=== PATIENT | female | born 1955 | race African-American/Black ===

== ENCOUNTER 2016-09-28 06:07 | Inpatient (IN) | payer OTHER ==
[~2016-09-28] VITALS: Ht 154.9 cm; Wt 49.4 kg
[~2016-09-28 06:07] MED LIST: COLACE100 MG ORAL; NKM; TRAMADOL HCL50 MG ORAL
[2016-09-28] MEDS ORDERED: Albuterol ud Inhalation ONE (06:17)
[2016-09-28] MEDS ORDERED: Ipratropium 0.02% Inh Soln 2.5ml UD ONE (06:17)
[2016-09-28 06:20] VITALS: BP 161/86
[2016-09-28] MEDS ORDERED: Ipratropium 0.02% Inh Soln 2.5ml UD HHN ONE (06:30)
[2016-09-28] MEDS ORDERED: Solu-MEDROL 125mg Inj IVP ONE (06:30)
[2016-09-28] MEDS ORDERED: Albuterol ud Inhalation HHN ONE ×2 (06:30→10:30)
[2016-09-28 06:41] LABS: BASOPHILS % (AUTO) 0.7 % (0.0-2.0); EOSINOPHILS % (AUTO) 8.4 % (0.0-3.0); LYMPHOCYTES % (AUTO) 14.3 % (20.0-45.0); MEAN CORPUSCULAR HGB CONC 32.5 G/DL (32.0-36.0); MEAN CORPUSCULAR VOLUME 105 FL (80-99); MEAN PLATELET VOLUME 6.8 FL (6.5-10.1); NEUTROPHILS % (AUTO) 73.6 % (45.0-75.0); PLATELET COUNT 309 K/UL (150-450); RED BLOOD COUNT 4.32 M/UL (4.20-5.40); RED CELL DISTRIBUTION WIDTH 14.2 % (11.6-14.8); WHITE BLOOD COUNT 15.1 K/UL (4.8-10.8)
--- NOTE | 2016-09-28 06:41 | Emergency Room Report ---
History of Present Illness General Chief Complaint: Dyspnea/Respdistress Source: Patient, EMS Present Illness HPI Patient brought by EMS. Her complaint is dyspnea. She has asthma and COPD. She's been smoking and also using cocaine mixed with marijuana. She's been coughing. This is not the worst attack that she's ever had. She denies being on prednisone at this time. She is coughing up white phlegm. She also has some diarrhea. She's occasional been vomiting. There's no blood. She is a headache that is 10/10 at this time she calls a migraine. Is not radiating. She feels tired. Allergies: Coded Allergies: CODEINE (Unverified Allergy, Unknown, 09/28/16) Patient History Past Medical History: see triage record Social History: Reports: drug use, smoking Social History Narrative from home Last Menstrual Period: ukn Now: No Reviewed Nursing Documentation: PMH: Agreed, PSxH: Agreed Nursing Documentation-PMH Past Medical History: No History, Except For Hx Hypertension: Yes Hx Asthma: Yes Hx Diabetes: Yes Review of Systems All Other Systems: negative except mentioned in HPI Physical Exam Vital Signs Date Time Temp Pulse Resp B/P Pulse Ox O2 Delivery O2 Flow Rate FiO2 09/28/16 06:10 98.1 117 37 161/86 94 Room Air 09/28/16 06:31 2.0 Sp02 EP Interpretation: reviewed, abnormal - Oxygen saturation as low as interpreted by me General Appearance: well appearing, no apparent distress, GCS 15 Head: normocephalic, atraumatic Eyes: bilateral eye PERRL, bilateral eye Scleral Injection ENT: moist mucus membranes Neck: supple Respiratory: no respiratory distress, no accessory muscle use, wheezing, expiration, inspiration Cardiovascular #1: regular rate, rhythm Cardiovascular #2: 2+ radial (R) Gastrointestinal: normal inspection, normal bowel sounds, non tender, no mass, non-distended Musculoskeletal: back normal, gait/station normal, normal range of motion Neurologic: alert, oriented x3, grossly normal Psychiatric: mood/affect normal, anxious Skin: normal inspection, warm/dry Medical Decision Making Diagnostic Impression: Primary Impression: Bilateral pneumonia Qualified Codes: J18.9 - Pneumonia, unspecified organism Additional Impressions: Cocaine abuse COPD exacerbation Renal failure (ARF), acute on chronic Qualified Codes: N17.9 - Acute kidney failure, unspecified; N18.9 - Chronic kidney disease, unspecified ER Course Patient presents with dyspnea. Differential includes pneumonia, exacerbation of COPD, acute myocardial infarction, bronchitis amongst others. Emergent evaluation and treatment is undertaken. Initial orders were written by Dr. Main. EKG, chest x-ray, labs will be obtained. Also aggressive breathing treatments will be initiated. Also the patient will be given Solu-Medrol. She' s hypoxemic and probably will need admission to the hospital. Labs with inc WBC. + tox. CXR with bilateral infiltrates. Min elevated BNP. Renal failure. Fluids given. Antibiotics begun. Improved but hypoxemic. Needs another treatment. Improved. Still very ill. Admit telemetry Dr. Childs. Laboratory Tests Test 09/28/16 06:21 09/28/16 06:25 09/28/16 07:05 09/28/16 15:15 Magnesium Level 1.7 mg/dL (1.7-2.5) White Blood Count 15.1 K/UL (4.8-10.8) H Red Blood Count 4.32 M/UL (4.20-5.40) Hemoglobin 14.7 G/DL (12.0-16.0) Hematocrit 45.2 % (37.0-47.0) Mean Corpuscular Volume 105 FL (80-99) H Mean Corpuscular Hemoglobin 34.0 PG (27.0-31.0) H Mean Corpuscular Hemoglobin Concent 32.5 G/DL (32.0-36.0) Red Cell Distribution Width 14.2 % (11.6-14.8) Platelet Count 309 K/UL (150-450) Mean Platelet Volume 6.8 FL (6.5-10.1) Neutrophils (%) (Auto) 73.6 % (45.0-75.0) Lymphocytes (%) (Auto) 14.3 % (20.0-45.0) L Monocytes (%) (Auto) 3.0 % (1.0-10.0) Eosinophils (%) (Auto) 8.4 % (0.0-3.0) H Basophils (%) (Auto) 0.7 % (0.0-2.0) Prothrombin Time 10.0 SEC (9.30-11.50) Prothrombin Time INR 1.0 (0.9-1.1) PTT 24 SEC (23-33) Sodium Level 142 mEQ/L (135-145) Potassium Level 3.6 mEQ/L (3.4-4.9) Chloride Level 107 mEQ/L (98-107) Carbon Dioxide Level 19 mEQ/L (20-30) L Anion Gap 16 (5-15) H Blood Urea Nitrogen 35 mg/dL (7-23) H Creatinine 3.4 mg/dL (0.5-0.9) H Estimate Glomerular Filtration Rate 16.7 mL/min (>60) Glucose Level 107 mg/dL (74-106) H Calcium Level 9.9 mg/dL (8.6-10.2) Total Bilirubin 0.4 mg/dL (0.0-1.2) Aspartate Amino Transferase (AST) 13 U/L (5-40) Alanine Aminotransferase (ALT) 9 U/L (3-33) Alkaline Phosphatase 64 U/L (35-104) Total Creatine Kinase 95 U/L (26-140) 57 U/L (26-140) Creatine Kinase MB 3.4 ng/mL (< 3.8) Creatine Kinase MB Relative Index 3.5 Troponin I < 0.30 ng/mL (<=0.30) Pro-B-Type Natriuretic Peptide 364 pg/mL (0-125) H Total Protein 7.7 g/dL (6.6-8.7) Albumin 4.0 g/dL (3.5-5.2) Globulin 3.7 g/dL Albumin/Globulin Ratio 1.0 (1.0-2.7) Lactic Acid Level 1.50 mmol/L (0.66-2.22) Uric Acid 4.7 mg/dL (3.0-7.5) Test 09/28/16 16:00 Urine Color Pale yellow Urine Appearance Clear Urine pH 6 (4.5-8.0) Urine Specific [place] 1.010 (1.005-1.035) Urine Protein 3+ (NEGATIVE) H Urine Glucose (UA) 3+ (NEGATIVE) H Urine Ketones Negative (NEGATIVE) Urine Occult Blood 1+ (NEGATIVE) H Urine Nitrite Negative (NEGATIVE) Urine Bilirubin Negative (NEGATIVE) Urine Urobilinogen Normal MG/DL (0.0-1.0) Urine Leukocyte Esterase Negative (NEGATIVE) Urine RBC 0-2 /HPF (0 - 2) Urine WBC 0-2 /HPF (0 - 2) Urine Squamous Epithelial Cells Occasional /LPF Urine Bacteria None /HPF (NONE) Urine Eosinophils None seen Urine Random Sodium 55 mmol/L Urine Potassium Timed 28 mmol/L Urine Opiates Screen Positive (NEGATIVE) H Urine Barbiturates Screen Negative (NEGATIVE) Phencyclidine (PCP) Screen Negative (NEGATIVE) Urine Amphetamines Screen Negative (NEGATIVE) Urine Benzodiazepines Screen Negative (NEGATIVE) Urine Cocaine Screen Positive (NEGATIVE) H Urine Marijuana (THC) Screen Negative (NEGATIVE) EKG Diagnostic Results Rate: tachycardiac Rhythm: NSR ST Segments: no acute changes Rhythm Strip Diag. Results EP Interpretation: yes Rhythm: other - Rate 116, P pulmonale, occasional PVCs. Chest X-Ray Diagnostic Results Chest X-Ray Diagnostic Results : Chest X-Ray Ordered: Yes # of Views/Limited/Complete: 1 View Indication: Shortness of Breath EP Interpretation: Yes Interpretation: no effusion, no pneumothorax, other - bilateral infiltrates vs CHF, sl large cor Impression: Other Interpreting ER Provider: Electronically signed by Braeden Bennett MD Last Vital Signs Date Time Temp Pulse Resp B/P Pulse Ox O2 Delivery O2 Flow Rate FiO2 09/28/16 20:00 98.4 104 16 111/70 98 Room Air 09/28/16 19:43 2.0 28 Status: improved Disposition: ADMITTED INPATIENT Condition: Serious Braeden Bennett M.D. Sep 28, 2016 06:41
[2016-09-28] MEDS ORDERED: cefTRIAXone 1 GM in NS 55 ML IVPB ONE (06:45)
[2016-09-28 06:57] LABS: TROPONIN I < 0.30 ng/mL (<=0.30)
[2016-09-28 06:58] LABS: CALCIUM 9.9 mg/dL (8.6-10.2); CREATININE 3.4 mg/dL (0.5-0.9); GLOMERULAR FILTRATION RATE 16.7 mL/min (>60); POTASSIUM 3.6 mEQ/L (3.4-4.9); TOTAL PROTEIN 7.7 g/dL (6.6-8.7)
[2016-09-28 07:08] LABS: CKMB 3.4 ng/mL (< 3.8)
[2016-09-28 07:30] VITALS: BP 132/74
[2016-09-28] MEDS ORDERED: Metoclopramide 10mg/2ml Inj IVP ONE (07:30)
[2016-09-28] MEDS ORDERED: DiphenhydrAMINE 50mg/ml Inj IVP ONE (07:30)
[2016-09-28] MEDS ORDERED: Morphine Sulfate 2mg/ml Inj IVP ONE (07:30)
[2016-09-28] MEDS ORDERED: ALBUTEROL2.5 MG/3 M INH (09:35)
[2016-09-28] MEDS ORDERED: Acetaminophen 500mg (ES) tab ORAL PRN (09:45)
[2016-09-28 10:33] VITALS: BP 121/73
--- NOTE | 2016-09-28 11:11 | Diagnostic Imaging Report ---
Indication: Dyspnea Comparison: 04/03/09 A single view chest radiograph was obtained. Findings: The interstitium and pulmonary vascularity appear prominent within both lungs. The heart is enlarged. Bones are unremarkable. Impression: Interstitial edema
[2016-09-28 11:15] VITALS: BP 129/80
[2016-09-28] MEDS ORDERED: DuoNeb 0.5-3(2.5)mg/3ml neb HHN SCH (13:00)
--- NOTE | 2016-09-28 15:14 | Consultation ---
History of Present Illness General Date patient seen: Sep 28, 2016 Chief Complaint: Dyspnea/Respdistress Referring physician: dr Childs Reason for Consultation: dyspnea Present Illness HPI 61 year old female with hx of COPD, presented to ER with complaint of dyspnea. She's been smoking and also using cocaine mixed with marijuana. She's been coughing. She is coughing up white phlegm. She also has some diarrhea. She has a headache that is 10/10 at this time she calls a migraine. she is admitted to telemetry for acute exacerbation of COPd Allergies: Coded Allergies: CODEINE (Unverified Allergy, Unknown, 09/28/16) Medication History Scheduled Docusate Sodium* (Colace*), 100 MG ORAL THREE TIMES A DAY No Known Medications* (NKM - No Known Medications*), 0 ., (Reported) Scheduled PRN Albuterol Sulfate* (Albuterol Sulfate Hhn*), 3 ML INH NEEDED PRN for Shortness of Breath, (Reported) Tramadol Hcl* (Ultram*), 50 MG ORAL Q6H PRN for For Pain Patient History Healthcare decision maker Resuscitation status Full Code Advanced Directive on File Past Medical/Surgical History Past Medical/Surgical History: (1) COPD (chronic obstructive pulmonary disease) (2) Chronic kidney disease Review of Systems All Other Systems: negative except mentioned in HPI Physical Exam General Appearance: WD/WN Lines, tubes and drains: peripheral HEENT: normocephalic, atraumatic Neck: non-tender, normal alignment Respiratory/Chest: chest wall non-tender, lungs clear Cardiovascular/Chest: normal peripheral pulses, normal rate Abdomen: normal bowel sounds Genitourinary/Rectal: normal genital exam Skin Exam: normal pigmentation 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 Last 24 Hour Vital Signs Date Time Temp Pulse Resp B/P Pulse Ox O2 Delivery O2 Flow Rate FiO2 09/28/16 12:00 103 09/28/16 11:15 97.8 110 18 129/80 98 Nasal Cannula 2.0 09/28/16 10:33 99.2 111 21 121/73 95 Nasal Cannula 2.0 09/28/16 07:30 98.6 125 33 132/74 97 Simple Mask 7.0 09/28/16 06:45 120 22 95 Simple Mask 3.0 09/28/16 06:31 112 23 94 Nasal Cannula 2.0 09/28/16 06:20 117 37 Simple Mask 09/28/16 06:20 98.1 37 161/86 94 Room Air 09/28/16 06:10 98.1 117 37 161/86 94 Room Air Laboratory Tests Test 09/28/16 06:21 09/28/16 06:25 09/28/16 07:05 Magnesium Level 1.7 mg/dL (1.7-2.5) White Blood Count 15.1 K/UL (4.8-10.8) H Red Blood Count 4.32 M/UL (4.20-5.40) Hemoglobin 14.7 G/DL (12.0-16.0) Hematocrit 45.2 % (37.0-47.0) Mean Corpuscular Volume 105 FL (80-99) H Mean Corpuscular Hemoglobin 34.0 PG (27.0-31.0) H Mean Corpuscular Hemoglobin Concent 32.5 G/DL (32.0-36.0) Red Cell Distribution Width 14.2 % (11.6-14.8) Platelet Count 309 K/UL (150-450) Mean Platelet Volume 6.8 FL (6.5-10.1) Neutrophils (%) (Auto) 73.6 % (45.0-75.0) Lymphocytes (%) (Auto) 14.3 % (20.0-45.0) L Monocytes (%) (Auto) 3.0 % (1.0-10.0) Eosinophils (%) (Auto) 8.4 % (0.0-3.0) H Basophils (%) (Auto) 0.7 % (0.0-2.0) Prothrombin Time 10.0 SEC (9.30-11.50) Prothromb Time International Ratio 1.0 (0.9-1.1) Activated Partial Thromboplast Time 24 SEC (23-33) Sodium Level 142 mEQ/L (135-145) Potassium Level 3.6 mEQ/L (3.4-4.9) Chloride Level 107 mEQ/L (98-107) Carbon Dioxide Level 19 mEQ/L (20-30) L Anion Gap 16 (5-15) H Blood Urea Nitrogen 35 mg/dL (7-23) H Creatinine 3.4 mg/dL (0.5-0.9) H Estimat Glomerular Filtration Rate 16.7 mL/min (>60) Glucose Level 107 mg/dL (74-106) H Calcium Level 9.9 mg/dL (8.6-10.2) Total Bilirubin 0.4 mg/dL (0.0-1.2) Aspartate Amino Transf (AST/SGOT) 13 U/L (5-40) Alanine Aminotransferase (ALT/SGPT) 9 U/L (3-33) Alkaline Phosphatase 64 U/L (35-104) Total Creatine Kinase 95 U/L (26-140) Creatine Kinase MB 3.4 ng/mL (< 3.8) Creatine Kinase MB Relative Index 3.5 Troponin I < 0.30 ng/mL (<=0.30) Pro-B-Type Natriuretic Peptide 364 pg/mL (0-125) H Total Protein 7.7 g/dL (6.6-8.7) Albumin 4.0 g/dL (3.5-5.2) Globulin 3.7 g/dL Albumin/Globulin Ratio 1.0 (1.0-2.7) Lactic Acid Level 1.50 mmol/L (0.66-2.22) Height (Feet): 5 Height (Inches): 1.00 Weight (Pounds): 109 Medications Current Medications Medications (Trade) Dose Ordered Sig/Wilma Route PRN Reason Start Time Stop Time Status Last Admin Dose Admin Acetaminophen (Tylenol) 500 mg Q4H PRN ORAL MILD PAIN/T>100.5 09/28/16 09:45 10/28/16 09:44 Albuterol/ Ipratropium (DuoNeb 0.5-3(2.5)mg/3ml) 3 ml Q6HRT HHN 09/28/16 13:00 10/03/16 12:59 Ceftriaxone Sodium 2 gm/ Sodium Chloride 110 ml @ 220 mls/hr Q24HRS IVPB 09/29/16 08:00 10/06/16 07:59 Dextrose (Dextrose 50%) STAT PRN IV Hypoglycemia 09/28/16 09:15 10/28/16 09:14 Heparin Sodium (Porcine) (Heparin 5000 units/ml) 5,000 units EVERY 12 HOURS SUBQ 09/28/16 21:00 10/28/16 20:59 Levofloxacin (Levaquin 750mg/ D5W) 150 ml @ 100 mls/hr Q24HRS IVPB 09/29/16 05:00 10/06/16 04:59 Pantoprazole 40 mg 40 mg DAILY ORAL 09/28/16 11:00 10/28/16 10:59 09/28/16 12:06 Assessment/Plan Problem List: (1) COPD exacerbation ICD Codes: J44.1 - Chronic obstructive pulmonary disease with (acute) exacerbation SNOMED: 265552572, 561537751 (2) Chronic kidney disease ICD Codes: N18.9 - Chronic kidney disease, unspecified SNOMED: 296039588 (3) Cardiomegaly ICD Codes: I51.7 - Cardiomegaly SNOMED: 4772347 Assessment/Plan iv abx iv steroids check sputum /culture renal work up echo BALBINA JONES Sep 28, 2016 15:14
[2016-09-28 15:48] LABS: URIC ACID 4.7 mg/dL (3.0-7.5)
[2016-09-28 16:28] LABS: APPEARANCE,URINE CLEAR; KETONES,URINE NEGATIVE (NEGATIVE); LEUKOCYTE ESTERASE ,URINE NEGATIVE (NEGATIVE); NITRITE,URINE NEGATIVE (NEGATIVE); PH,URINE 6 (4.5-8.0); PROTEIN,URINE 3+ (NEGATIVE); UROBILINOGEN,URINE NORMAL MG/DL (0.0-1.0)
[2016-09-28 16:36] LABS: RBC,URINE 0-2 /HPF (0 - 2); SQUAMOUS EPITHELIAL CELL,UR OCCASIONAL /LPF (NONE/OCC); WBC,URINE 0-2 /HPF (0 - 2)
[2016-09-28] MEDS ORDERED: Solu-MEDROL 40mg Inj IVP SCH (18:00)
[2016-09-28] MEDS: Solu-MEDROL 40mg Inj IVP SCH (18:00)
[2016-09-28] MEDS: DuoNeb 0.5-3(2.5)mg/3ml neb HHN SCH (19:00)
[2016-09-28 20:00] VITALS: BP 111/70
[2016-09-28] MEDS ORDERED: Heparin 5000 units/ml inj SUBQ SCH (21:00)
[2016-09-28] MEDS: Heparin 5000 units/ml inj SUBQ SCH (21:08)
--- NOTE | 2016-09-28 22:38 | Consultation ---
Consult Note Consult Note [id number] CAROLANN MARCUS M.D. Sep 28, 2016 22:38
[2016-09-28] MEDS ORDERED: Ketorolac 30mg Inj IV PRN ×2 (22:45→23:00)
[2016-09-28] MEDS ORDERED: Ketorolac 30mg Inj IM PRN (23:30)
[2016-09-29] VITALS: BP 114/73
[2016-09-29] MEDS: DuoNeb 0.5-3(2.5)mg/3ml neb HHN SCH ×4 (01:00→19:21)
--- NOTE | 2016-09-29 03:15 | Consultation ---
DATE OF CONSULTATION: 09/28/2016 INFECTIOUS DISEASES CONSULTATION CONSULTING PHYSICIAN: Edilberto Coleman M.D. REQUESTING PHYSICIAN: Phyllis Childs M.D. REASON FOR CONSULTATION: Evaluation of the patient for pneumonia and antibiotic management. HISTORY OF PRESENT ILLNESS: The patient is a 61-year-old female with medical problems who came to the hospital due to the cough and serum production. Infectious Disease consultation has been requested for further evaluation of the patient and antibiotic management. PAST MEDICAL HISTORY: 1. Significant for history of cocaine and marijuana abuse. 2. Smoker. 3. History of COPD. 4. Hypertension. 5. Diabetes. MEDICATIONS: Rocephin, , and Solu-Medrol. ALLERGIES: Codeine. SOCIAL HISTORY: Significant for abusing cocaine and marijuana. Also, the patient has history of smoking tobacco. FAMILY HISTORY: Noncontributing. REVIEW OF SYSTEMS: A 10-point review was done and except what is mentioned above has been negative. PHYSICAL EXAMINATION: VITAL SIGNS: Temperature 97.8 degrees, blood pressure 129/80, pulse 86, and respiratory rate 18. HEENT: Mild pale conjunctivae. No icterus. NECK: No lymphadenopathy. CHEST: Mild wheezes. Coarse breathing sounds at bases of both lungs. HEART: S1 and S2. ABDOMEN: Soft. EXTREMITIES: No cyanosis at this time. NEUROLOGIC: Awake. LABORATORY AND DIAGNOSTIC DATA: WBC 15.1, hemoglobin 14, and platelets 209,000. UA unremarkable. BUN 34 and creatinine 3.4. ALT, AST, and alkaline phosphatase unremarkable. Chest x-ray interstitial edema. CT scan of the abdomen, bilateral nonobstructive nephrolithiasis. ASSESSMENT: The patient is a 61-year-old female with: 1. Pneumonia. 2. Leukocytosis. 3. Bronchitis. 4. Bilateral nonobstructing nephrolithiasis. PLAN: 1. We will continue the patient on Rocephin and Levaquin day #03/15. 2. Monitor CBC. 3. Monitor BMP. 4. Monitor cultures (blood and sputum). 5. Multiple chest x-rays. 6. Based on the patient's clinical course and labs, we will do further recommendations. Thank you Dr. Childs for allowing me to participate in the care of this patient. I will follow the patient with you during this hospitalization. Edilberto Coleman M.D. DR: KRISTEN JOB#: [id number] CC:
[2016-09-29 04:00] VITALS: BP 124/79
[2016-09-29] MEDS: Solu-MEDROL 40mg Inj IVP SCH ×4 (05:12→21:08)
--- NOTE | 2016-09-29 07:52 | Pulmonology Progress Note ---
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 and smoking cessation declined Nicotine patch case discussed and evaluated by supervising physician Subjective Allergies: Coded Allergies: CODEINE (Unverified Allergy, Unknown, 09/28/16) Subjective labs pending intermittent SOB no signs of respiratory distress pulse oximetry stable on RA denies chest pain Objective Last 24 Hour Vital Signs Date Time Temp Pulse Resp B/P Pulse Ox O2 Delivery O2 Flow Rate FiO2 09/29/16 06:37 Nasal Cannula 2.0 09/29/16 06:37 Nasal Cannula 2.0 09/29/16 06:37 73 20 Nasal Cannula 2.0 09/29/16 04:39 Nasal Cannula 2.0 09/29/16 04:00 97.5 94 18 124/79 99 Nasal Cannula 2.0 09/29/16 00:00 98.1 59 17 114/73 98 Room Air 09/28/16 20:00 98.4 104 16 111/70 98 Room Air 09/28/16 19:43 105 20 98 Nasal Cannula 2.0 28 09/28/16 19:41 105 20 98 Nasal Cannula 3.0 09/28/16 19:38 105 22 Nasal Cannula 09/28/16 12:00 103 09/28/16 11:15 97.8 110 18 129/80 98 Nasal Cannula 2.0 09/28/16 10:33 99.2 111 21 121/73 95 Nasal Cannula 2.0 Intake and Output 09/28/16 09/29/16 19:00 07:00 Intake Total 200 ml Balance 200 ml Intake IV Total 200 ml # Voids 5 General Appearance: no acute distress, other - A/A/O x 3 AA female HEENT: normocephalic, atraumatic, anicteric Respiratory/Chest: no respiratory distress, no accessory muscle use, decreased breath sounds - few occasional expiratory wheezes Cardiovascular: normal peripheral pulses, regular rhythm, no JVD, tachycardia - mild 100-108 Abdomen: normal bowel sounds, soft, non tender, non distended Genitourinary: normal external genitalia Extremities: no edema, pedal pulses normal Neurologic/Psychiatric: no motor/sensory deficits, alert, oriented x 3, responsive Musculoskeletal: normal muscle bulk Laboratory Tests 09/28/16 15:15: Uric Acid 4.7, Total Creatine Kinase 57 09/28/16 16:00: Urine Color Pale yellow, Urine Appearance Clear, Urine pH 6, Urine Specific [place] 1.010, Urine Protein 3+H, Urine Glucose (UA) 3+H, Urine Ketones Negative , Urine Occult Blood 1+H, Urine Nitrite Negative, Urine Bilirubin Negative, Urine Urobilinogen Normal, Urine Leukocyte Esterase Negative, Urine RBC 0-2, Urine WBC 0-2, Urine Squamous Epithelial Cells Occasional, Urine Bacteria None, Urine Eosinophils None seen, Urine Random Sodium 55, Urine Potassium Timed 28, Urine Opiates Screen PositiveH, Urine Barbiturates Screen Negative, Phencyclidine (PCP) Screen Negative, Urine Amphetamines Screen Negative, Urine Benzodiazepines Screen Negative, Urine Cocaine Screen PositiveH, Urine Marijuana (THC) Screen Negative 09/29/16 05:25: White Blood Count [Pending], Red Blood Count [Pending], Hemoglobin [Pending], Hematocrit [Pending], Mean Corpuscular Volume [Pending], Mean Corpuscular Hemoglobin [Pending], Mean Corpuscular Hemoglobin Concent [Pending], Red Cell Distribution Width [Pending], Platelet Count [Pending], Mean Platelet Volume [ Pending], Neutrophils (%) (Auto) [Pending], Lymphocytes (%) (Auto) [Pending], Monocytes (%) (Auto) [Pending], Eosinophils (%) (Auto) [Pending], Basophils (%) (Auto) [Pending] Current Medications Medications (Trade) Dose Ordered Sig/Wilma Route PRN Reason Start Time Stop Time Status Last Admin Dose Admin Acetaminophen (Tylenol) 500 mg Q4H PRN ORAL MILD PAIN/T>100.5 09/28/16 17:00 10/28/16 16:59 Albuterol/ Ipratropium (DuoNeb 0.5-3(2.5)mg/3ml) 3 ml Q6HRT HHN 09/28/16 19:00 10/03/16 18:59 Ceftriaxone Sodium 2 gm/ Sodium Chloride 110 ml @ 220 mls/hr Q24HRS IVPB 09/29/16 08:00 10/06/16 07:59 Dextrose (Dextrose 50%) STAT PRN IV Hypoglycemia 09/28/16 17:00 10/28/16 16:59 Heparin Sodium (Porcine) (Heparin 5000 units/ml) 5,000 units EVERY 12 HOURS SUBQ 09/28/16 21:00 10/28/16 20:59 09/28/16 21:08 Ketorolac Tromethamine (Toradol 30mg) 15 mg EVERY 12 HOURS PRN IM For Pain 09/28/16 23:30 10/03/16 23:29 09/28/16 23:56 Levofloxacin (Levaquin 750mg/ D5W) 150 ml @ 100 mls/hr Q24HRS IVPB 09/29/16 05:00 10/06/16 04:59 09/29/16 04:54 Methylprednisolone Sodium Succinate (Solu-MEDROL) 40 mg EVERY 6 HOURS IVP 09/28/16 18:00 10/28/16 17:59 09/29/16 05:12 Pantoprazole (Protonix) 40 mg DAILY ORAL 09/29/16 09:00 10/29/16 08:59 Wilson SolisPriscila vela NP Sep 29, 2016 07:52
[2016-09-29 08:00] VITALS: BP 137/81
[2016-09-29] MEDS ORDERED: cefTRIAXone 2 GM in NS 110 ML IVPB SCH (08:00)
[2016-09-29] MEDS: cefTRIAXone 2 GM in NS 110 ML IVPB SCH (08:46)
[2016-09-29] MEDS: Heparin 5000 units/ml inj SUBQ SCH ×2 (08:47→21:08)
[2016-09-29] MEDS: DiphenhydrAMINE 50mg/ml Inj IVP PRN ×3 (08:55→21:18)
[2016-09-29] MEDS ORDERED: Tubing IV Secondary IV ONE ×3 (10:27→17:02)
[2016-09-29] MEDS ORDERED: NS 275ml ONE (10:27)
--- NOTE | 2016-09-29 10:32 | History & Physical ---
History and Physical History & Physicial patient is seen and examind. HP in progress Phyllis Childs MD Sep 29, 2016 10:32
[2016-09-29] MEDS ORDERED: D5 1/2NS 1000ml IV ONE (11:05)
--- NOTE | 2016-09-29 11:34 | Infectious Diseases Prog Note ---
Assessment/Plan Assessment/Plan A: ASSESSMENT: The patient is a 61-year-old female with: Pneumonia Leukocytosis Bronchitis Bilateral nonobstructing nephrolithiasis history of cocaine and marijuana abuse Smoker History of COPD Hypertension Diabetes PLAN: cont pt on Rocephin and Levaquin day # 2 /5 Monitor CBC Monitor BMP Monitor cultures (blood and sputum). chest x-rays. Subjective Constitutional: Denies: anorexia, chills, drenching sweats, fatigue, fever, no symptoms, other Allergies: Coded Allergies: CODEINE (Unverified Allergy, Unknown, 09/28/16) Objective Vital Signs Last 24 Hour Vital Signs Date Time Temp Pulse Resp B/P Pulse Ox O2 Delivery O2 Flow Rate FiO2 09/29/16 08:00 97.9 104 18 137/81 98 Room Air 09/29/16 06:37 Nasal Cannula 2.0 09/29/16 06:37 Nasal Cannula 2.0 09/29/16 06:37 73 20 Nasal Cannula 2.0 09/29/16 04:39 Nasal Cannula 2.0 09/29/16 04:00 97.5 94 18 124/79 99 Nasal Cannula 2.0 09/29/16 00:00 98.1 59 17 114/73 98 Room Air 09/28/16 20:00 98.4 104 16 111/70 98 Room Air 09/28/16 19:43 105 20 98 Nasal Cannula 2.0 28 09/28/16 19:41 105 20 98 Nasal Cannula 3.0 09/28/16 19:38 105 22 Nasal Cannula 09/28/16 12:00 103 Height (Feet): 5 Height (Inches): 1.00 Weight (Pounds): 109 HEENT: anicteric Respiratory/Chest: normal breath sounds Cardiovascular: normal rate Microbiology Date/Time Source Procedure Growth Status 09/28/16 07:15 Blood Blood Culture - Preliminary NO GROWTH AFTER 24 HOURS Resulted 09/28/16 07:00 Blood Blood Culture - Preliminary NO GROWTH AFTER 24 HOURS Resulted Laboratory Tests Test 09/28/16 15:15 09/28/16 16:00 09/29/16 05:25 Uric Acid 4.7 mg/dL (3.0-7.5) Total Creatine Kinase 57 U/L (26-140) Urine Color Pale yellow Urine Appearance Clear Urine pH 6 (4.5-8.0) Urine Specific [place] 1.010 (1.005-1.035) Urine Protein 3+ (NEGATIVE) H Urine Glucose (UA) 3+ (NEGATIVE) H Urine Ketones Negative (NEGATIVE) Urine Occult Blood 1+ (NEGATIVE) H Urine Nitrite Negative (NEGATIVE) Urine Bilirubin Negative (NEGATIVE) Urine Urobilinogen Normal MG/DL (0.0-1.0) Urine Leukocyte Esterase Negative (NEGATIVE) Urine RBC 0-2 /HPF (0 - 2) Urine WBC 0-2 /HPF (0 - 2) Urine Squamous Epithelial Cells Occasional /LPF Urine Bacteria None /HPF (NONE) Urine Eosinophils None seen Urine Random Sodium 55 mmol/L Urine Potassium Timed 28 mmol/L Urine Opiates Screen Positive (NEGATIVE) H Urine Barbiturates Screen Negative (NEGATIVE) Phencyclidine (PCP) Screen Negative (NEGATIVE) Urine Amphetamines Screen Negative (NEGATIVE) Urine Benzodiazepines Screen Negative (NEGATIVE) Urine Cocaine Screen Positive (NEGATIVE) H Urine Marijuana (THC) Screen Negative (NEGATIVE) White Blood Count Pending Red Blood Count Pending Hemoglobin Pending Hematocrit Pending Mean Corpuscular Volume Pending Mean Corpuscular Hemoglobin Pending Mean Corpuscular Hemoglobin Concent Pending Red Cell Distribution Width Pending Platelet Count Pending Mean Platelet Volume Pending Neutrophils (%) (Auto) Pending Lymphocytes (%) (Auto) Pending Monocytes (%) (Auto) Pending Eosinophils (%) (Auto) Pending Basophils (%) (Auto) Pending Current Medications Medications (Trade) Dose Ordered Sig/Wilma Route PRN Reason Start Time Stop Time Status Last Admin Dose Admin Acetaminophen (Tylenol) 500 mg Q4H PRN ORAL MILD PAIN/T>100.5 09/28/16 17:00 10/28/16 16:59 Albuterol/ Ipratropium (DuoNeb 0.5-3(2.5)mg/3ml) 3 ml Q6HRT HHN 09/28/16 19:00 10/03/16 18:59 Ceftriaxone Sodium 2 gm/ Sodium Chloride 110 ml @ 220 mls/hr Q24HRS IVPB 09/29/16 08:00 10/06/16 07:59 09/29/16 08:46 Dextrose (Dextrose 50%) STAT PRN IV Hypoglycemia 09/28/16 17:00 10/28/16 16:59 Diphenhydramine HCl (Benadryl) 25 mg Q6H PRN IVP Itching 09/29/16 08:30 10/29/16 08:29 09/29/16 08:55 Heparin Sodium (Porcine) (Heparin 5000 units/ml) 5,000 units EVERY 12 HOURS SUBQ 09/28/16 21:00 10/28/16 20:59 09/29/16 08:47 Levofloxacin (Levaquin 750mg/ D5W) 150 ml @ 100 mls/hr Q24HRS IVPB 09/29/16 05:00 10/06/16 04:59 09/29/16 04:54 Methylprednisolone Sodium Succinate (Solu-MEDROL) 40 mg Q8HR IVP 09/29/16 14:00 10/29/16 13:59 Pantoprazole (Protonix) 40 mg DAILY ORAL 09/29/16 09:00 10/29/16 08:59 09/29/16 08:47 CAROLANN MARCUS M.D. Sep 29, 2016 11:34
[2016-09-29 12:00] VITALS: BP 132/77
[2016-09-29 12:45] LABS: MEAN CORPUSCULAR HEMOGLOBIN 33.6 PG (27.0-31.0); MEAN CORPUSCULAR HGB CONC 32.5 G/DL (32.0-36.0); MEAN CORPUSCULAR VOLUME 104 FL (80-99); MEAN PLATELET VOLUME 6.6 FL (6.5-10.1); PLATELET COUNT 266 K/UL (150-450); RED BLOOD COUNT 3.77 M/UL (4.20-5.40); RED CELL DISTRIBUTION WIDTH 13.8 % (11.6-14.8); WHITE BLOOD COUNT 15.5 K/UL (4.8-10.8)
[2016-09-29 13:11] LABS: ALANINE AMINOTRANSFERASE 8 U/L (3-33); ALBUMIN/GLOBULIN RATIO 0.9 (1.0-2.7); ANION GAP 12 (5-15); ASPARTATE AMINO TRANSFERASE 8 U/L (5-40); CALCIUM 9.6 mg/dL (8.6-10.2); CARBON DIOXIDE 19 mEQ/L (20-30); CHLORIDE 109 mEQ/L (98-107); CREATININE 2.7 mg/dL (0.5-0.9); GLOMERULAR FILTRATION RATE 21.8 mL/min (>60); HEMOLYSIS 4; POTASSIUM 5.5 mEQ/L (3.4-4.9); SODIUM 140 mEQ/L (135-145); TOTAL PROTEIN 7.1 g/dL (6.6-8.7)
--- NOTE | 2016-09-29 13:47 | General Progress Note ---
Assessment/Plan Status: stable Assessment/Plan 1- Acute COPD exacerbation 2- HyperKalemia 3- Renal failure- Age indeterminant 4- Substance abuse 5- GI-DVT prophylaxia Plan: Pulmonary Nephro ID services are consulted. I will provide Kayoxalate. Monitor K Subjective ROS Limited/Unobtainable: No Constitutional: Reports: malaise Cardiovascular: Reports: no symptoms Respiratory: Reports: shortness of breath Allergies: Coded Allergies: CODEINE (Unverified Allergy, Unknown, 09/28/16) Objective Last 24 Hour Vital Signs Date Time Temp Pulse Resp B/P Pulse Ox O2 Delivery O2 Flow Rate FiO2 09/29/16 12:30 Room Air 09/29/16 12:30 Room Air 09/29/16 12:00 98.0 88 18 132/77 Room Air 09/29/16 08:00 97.9 104 18 137/81 98 Room Air 09/29/16 06:37 Nasal Cannula 2.0 09/29/16 06:37 Nasal Cannula 2.0 09/29/16 06:37 73 20 Nasal Cannula 2.0 09/29/16 04:39 Nasal Cannula 2.0 09/29/16 04:00 97.5 94 18 124/79 99 Nasal Cannula 2.0 09/29/16 00:00 98.1 59 17 114/73 98 Room Air 09/28/16 20:00 98.4 104 16 111/70 98 Room Air 09/28/16 19:43 105 20 98 Nasal Cannula 2.0 28 09/28/16 19:41 105 20 98 Nasal Cannula 3.0 09/28/16 19:38 105 22 Nasal Cannula Intake and Output 09/28/16 09/29/16 19:00 07:00 Intake Total 200 ml Balance 200 ml Intake IV Total 200 ml # Voids 5 Laboratory Tests 09/28/16 15:15: Uric Acid 4.7, Total Creatine Kinase 57 09/28/16 16:00: Urine Color Pale yellow, Urine Appearance Clear, Urine pH 6, Urine Specific Custer 1.010, Urine Protein 3+H, Urine Glucose (UA) 3+H, Urine Ketones Negative , Urine Occult Blood 1+H, Urine Nitrite Negative, Urine Bilirubin Negative, Urine Urobilinogen Normal, Urine Leukocyte Esterase Negative, Urine RBC 0-2, Urine WBC 0-2, Urine Squamous Epithelial Cells Occasional, Urine Bacteria None, Urine Eosinophils None seen, Urine Random Sodium 55, Urine Potassium Timed 28, Urine Opiates Screen PositiveH, Urine Barbiturates Screen Negative, Phencyclidine (PCP) Screen Negative, Urine Amphetamines Screen Negative, Urine Benzodiazepines Screen Negative, Urine Cocaine Screen PositiveH, Urine Marijuana (THC) Screen Negative 09/29/16 12:00: White Blood Count 15.5H, Red Blood Count 3.77L, Hemoglobin 12.7, Hematocrit 39.0 , Mean Corpuscular Volume 104H, Mean Corpuscular Hemoglobin 33.6H, Mean Corpuscular Hemoglobin Concent 32.5, Red Cell Distribution Width 13.8, Platelet Count 266, Mean Platelet Volume 6.6, Neutrophils (%) (Auto) , Lymphocytes (%) ( Auto) , Monocytes (%) (Auto) , Eosinophils (%) (Auto) , Basophils (%) (Auto) , Neutrophils % (Manual) [Pending], Lymphocytes % (Manual) [Pending], Platelet Estimate [Pending], Platelet Morphology [Pending], Sodium Level 140, Potassium Level 5.5#H, Chloride Level 109H, Carbon Dioxide Level 19L, Anion Gap 12, Blood Urea Nitrogen 35H, Creatinine 2.7H, Estimat Glomerular Filtration Rate 21.8, Glucose Level 152H, Calcium Level 9.6, Total Bilirubin < 0.2, Aspartate Amino Transf (AST/SGOT) 8, Alanine Aminotransferase (ALT/SGPT) 8, Alkaline Phosphatase 52, Total Protein 7.1, Albumin 3.5, Globulin 3.6, Albumin/Globulin Ratio 0.9L Height (Feet): 5 Height (Inches): 1.00 Weight (Pounds): 109 General Appearance: no apparent distress EENT: PERRL/EOMI Neck: supple Cardiovascular: normal rate Respiratory/Chest: rhonchi - bilaterally Abdomen: soft Neurologic: ab initio etl developer II-XII grossly normal Phyllis Childs MD Sep 29, 2016 13:47
[2016-09-29] MEDS: Acetaminophen 500mg (ES) tab ORAL PRN (13:51)
[2016-09-29 13:54] LABS: BAND NEUTROPHILS % (MANUAL) 0 % (0-8); BASOPHILS % (MANUAL) 0 % (0-2); EOSINOPHILS % (MANUAL) 1 % (0-3); LYMPHOCYTES % (MANUAL) 11 % (20-45); NEUTROPHILS % (MANUAL) 87 % (45-75); PLATELET ESTIMATE ADEQUATE; PLATELET MORPHOLOGY NORMAL; TOTAL CELLS COUNTED 100
[2016-09-29 13:55] LABS: MACROCYTES 1+
[2016-09-29] MEDS ORDERED: Sodium Polystyrene Sulfonate 15gm Powder ORAL ONE (14:00)
--- NOTE | 2016-09-29 14:15 | History and Physical Report ---
DATE OF ADMISSION: 09/28/2016 SOURCE OF INFORMATION: Patient and EMR. HISTORY OF PRESENT ILLNESS: The patient is a 61-year-old female, active smoker, with prior history of chronic obstructive pulmonary disease, who presented with worsening of shortness of breath for the last couple of days. The patient complains of episodes of cough, but denies any fever or chills. The patient reported that the shortness of breath get worse by walking around. REVIEW OF SYSTEMS: All 9 elements of review of systems reviewed with the patient. Pertinent positives and negatives as follows. The patient denied chest pain. The patient denied nausea, vomiting, diarrhea, constipation. PAST MEDICAL HISTORY: Significant for polysubstance abuse, active tobacco smoking, COPD, hypertension, and diabetes. OUTPATIENT MEDICATIONS: Including albuterol, Colace, and tramadol. ALLERGIES: To codeine. SOCIAL HISTORY: Positive for history of cocaine abuse, marijuana abuse. Active tobacco smoking at least half a pack per day for more than 20 years. PHYSICAL EXAMINATION: VITAL SIGNS: Blood pressure is 130/80, pulse oximetry 98% on 2 liters of oxygen, and temperature 97.5 degrees. HEAD AND NECK: Atraumatic and normocephalic. CHEST: Diffuse bronchial breathing sounds. HEART: S1 and S2. Regular rate and rhythm. MUSCULOSKELETAL: Atrophied musculature, but no gross lateralized motor deficit. NEUROLOGIC: The patient is awake, alert, and oriented x3. PSYCHIATRIC: Mood and affect are depressed and anxious. LABORATORY DATA: Labs dated 09/28/2016 showed WBC 15.1, hemoglobin 14.7, and platelets 309,000. Sodium 142, potassium 3.6, BUN 35, and creatinine 3.4. BNP is 367. Urine drug screen is positive for cocaine and opiates. IMAGING: Chest x-ray dated 09/28/2016 shows interstitial edema, otherwise unremarkable. ASSESSMENT: 1. Chronic obstructive pulmonary disease exacerbation. 2. Substance abuse. 3. Renal failure (age indeterminate). 4. Hyperkalemia. 5. Abnormal BNP. 6. Gastrointestinal and deep vein thrombosis prophylaxis. PLAN OF CARE: Pulmonary, Dr. Dyson and Infectious Disease, Dr. Coleman were consulted. I will check the 2D echocardiogram. Continue with the current antibiotic regimen including ceftriaxone and levofloxacin. Comments: The time of this dictation does not reflect the actual time of encounter, that had occurred on 09/28/2016 at 11:50 a.kelsie Phyllis Childs M.D. DR: JOSR JOB#: [id number] CC:
[2016-09-29 15:57] VITALS: BP 134/92
--- NOTE | 2016-09-29 15:59 | Consultation ---
Consult Note Assessment/Plan Renal consult dictated # [id number] SAAVNNAH MITCHELL Sep 29, 2016 15:59
[2016-09-29] MEDS: Morphine Sulfate 2mg/ml Inj IVP PRN (21:09)
--- NOTE | 2016-09-29 21:45 | Consultation ---
DATE OF CONSULTATION: 09/29/2016 NEPHROLOGY CONSULTATION CONSULTING PHYSICIAN: Nacho Roman M.D. REFERRING PHYSICIAN: Phyllis Childs M.D. REASON FOR CONSULTATION: Renal failure. HISTORY OF PRESENT ILLNESS: This is a 61-year-old female with a history of smoking. She usually smokes 1 pack every other day and has been smoking for many years. She was admitted with chronic obstructive pulmonary disease exacerbation. Dr. Reeves was asked to see the patient for renal failure and I am covering for him today. The patient's BUN and creatinine was 35 and 2.7 as of today with a potassium of 5.5. The patient says that she was told before that she has a history of chronic kidney disease. PAST MEDICAL HISTORY: The patient has a history of hypertension, diabetes, and chronic obstructive pulmonary disease. ALLERGIES: Codeine causes itching. SOCIAL HISTORY: As mentioned, the patient has a history of smoking. She lives at home with her cousin. No history of alcohol abuse. REVIEW OF SYSTEMS: Noncontributory. PHYSICAL EXAMINATION: GENERAL: The patient is a 61-year-old female, in no acute distress. VITAL SIGNS: Blood pressure 132/77, pulse 88, temperature 98, and respiratory rate is 18. HEENT: Welch conjunctivae. Anicteric sclerae. NECK: Supple. LUNGS: Prior to her expiratory rhonchi. HEART: S1 and S2 without murmurs or rubs. ABDOMEN: Soft and nontender. EXTREMITIES: No cyanosis or edema. LABORATORY FINDINGS: The chemistry panel shows a serum sodium 140, potassium 5.5, chloride 109, CO2 19, BUN 35, and creatinine 2.7. Yesterday, the BUN was 35 and creatinine 2.4. CBC shows a WBC of 15.5, hematocrit 39, hemoglobin 12.7, and platelets 266,000. ASSESSMENT: This is a 61-year-old female, who was admitted with chronic obstructive pulmonary disease exacerbation. She has acute renal failure. It may have been caused by prerenal azotemia and that has improved. However, the patient tells me that she has also chronic kidney disease. Urine has 3+ protein, which goes along with the diagnosis. Her risk factors are obviously diabetes and hypertension. PLAN: I would hydrate the patient cautiously. Chemistry panel will be followed closely. I will order vitamin D and PTH level as well to make sure the patient does have a secondary hyperparathyroidism, which would put her at risk of renal osteodystrophy. Thank you very much Dr. Childs for this consultation. Nacho Roman M.D. DR: REID JOB#: [id number] CC: LORE
[2016-09-30] MEDS: DuoNeb 0.5-3(2.5)mg/3ml neb HHN SCH ×4 (01:18→19:00)
[2016-09-30 04:00] VITALS: BP 122/77
[2016-09-30] MEDS: Solu-MEDROL 40mg Inj IVP SCH ×2 (05:38→21:33)
[2016-09-30] MEDS: DiphenhydrAMINE 50mg/ml Inj IVP PRN ×2 (05:38→21:33)
[2016-09-30] MEDS: cefTRIAXone 2 GM in NS 110 ML IVPB SCH (08:02)
[2016-09-30] MEDS: Morphine Sulfate 2mg/ml Inj IVP PRN ×2 (08:02→16:12)
[2016-09-30 08:16] VITALS: BP 132/81
--- NOTE | 2016-09-30 09:12 | Pulmonology Progress Note ---
Assessment/Plan Assessment/Plan ASSESSMENT possible sepsis ( leukocytosis, tachycardia) acute COPD exacerbation acute on chronic renal failure smoker cocaine abuse PLAN OF CARE MS floor Supplemental O2 , keep sat above 92% HHN prn IV Steroids and taper Empiric abx Sputum cx if able Antitussive prn fup with CXR initial CXR with interstitial edema Echo with pEF 60-65% and RVSP of 25 DVT, GI prophayxlis Bowel regimen check renal US gentle IVF monitor renal parameters, lytes, avoid nephrotoxic creat trending down nephro follows urine tox screen + cocaine AMS possible due to cocaine +/- UTI - improving , trauma counsellor on abstinence from street drug and smoking cessation declined Nicotine patch case discussed and evaluated by supervising physician Subjective Allergies: Coded Allergies: CODEINE (Unverified Allergy, Unknown, 09/28/16) Subjective labs pending intermittent SOB no signs of respiratory distress pulse oximetry stable on RA denies chest pain Objective Last 24 Hour Vital Signs Date Time Temp Pulse Resp B/P Pulse Ox O2 Delivery O2 Flow Rate FiO2 09/30/16 08:16 97.8 99 20 132/81 99 Room Air 09/30/16 07:29 86 18 97 Room Air 09/30/16 07:29 Room Air 09/30/16 07:29 86 18 Room Air 09/30/16 04:00 97.7 62 20 122/77 100 Room Air 2.0 09/30/16 01:30 79 20 99 Room Air 09/30/16 01:18 77 20 96 Room Air 09/29/16 19:39 77 20 99 Room Air 09/29/16 19:21 75 20 Room Air 09/29/16 19:21 75 20 96 Room Air 09/29/16 15:57 98.0 69 15 134/92 99 Nasal Cannula 09/29/16 12:30 Room Air 09/29/16 12:30 Room Air 09/29/16 12:00 98.0 88 18 132/77 Room Air Intake and Output 09/29/16 09/30/16 19:00 07:00 Intake Total 930 ml 600 ml Balance 930 ml 600 ml Intake Oral 880 ml IV Total 50 ml 600 ml # Voids 3 4 Objective General Appearance: no acute distress, other - A/A/O x 3 AA female HEENT: normocephalic, atraumatic, anicteric Respiratory/Chest: no respiratory distress, no accessory muscle use, decreased breath sounds - few occasional expiratory wheezes Cardiovascular: normal peripheral pulses, regular rate and rhythm, no JVD, Abdomen: normal bowel sounds, soft, non tender, non distended Genitourinary: normal external genitalia Extremities: no edema, pedal pulses normal Neurologic/Psychiatric: no motor/sensory deficits, alert, oriented x 3, responsive Musculoskeletal: normal muscle bulk Microbiology Date/Time Source Procedure Growth Status 09/28/16 07:15 Blood Blood Culture - Preliminary NO GROWTH AFTER 24 HOURS Resulted 09/28/16 07:00 Blood Blood Culture - Preliminary NO GROWTH AFTER 24 HOURS Resulted Laboratory Tests 09/29/16 12:00: White Blood Count 15.5H, Red Blood Count 3.77L, Hemoglobin 12.7, Hematocrit 39.0 , Mean Corpuscular Volume 104H, Mean Corpuscular Hemoglobin 33.6H, Mean Corpuscular Hemoglobin Concent 32.5, Red Cell Distribution Width 13.8, Platelet Count 266, Mean Platelet Volume 6.6, Neutrophils (%) (Auto) , Lymphocytes (%) ( Auto) , Monocytes (%) (Auto) , Eosinophils (%) (Auto) , Basophils (%) (Auto) , Differential Total Cells Counted 100, Neutrophils % (Manual) 87H, Lymphocytes % (Manual) 11L, Monocytes % (Manual) 1, Eosinophils % (Manual) 1, Basophils % ( Manual) 0, Band Neutrophils 0, Platelet Estimate Adequate, Platelet Morphology Normal, Macrocytosis 1+, Sodium Level 140, Potassium Level 5.5#H, Chloride Level 109H, Carbon Dioxide Level 19L, Anion Gap 12, Blood Urea Nitrogen 35H, Creatinine 2.7H, Estimat Glomerular Filtration Rate 21.8, Glucose Level 152H, Calcium Level 9.6, Total Bilirubin < 0.2, Aspartate Amino Transf (AST/SGOT) 8, Alanine Aminotransferase (ALT/SGPT) 8, Alkaline Phosphatase 52, Total Protein 7.1, Albumin 3.5, Globulin 3.6, Albumin/Globulin Ratio 0.9L 09/29/16 18:40: Potassium Level 5.0H Current Medications Medications (Trade) Dose Ordered Sig/Wilma Route PRN Reason Start Time Stop Time Status Last Admin Dose Admin Acetaminophen (Tylenol) 500 mg Q4H PRN ORAL MILD PAIN/T>100.5 09/28/16 17:00 10/28/16 16:59 09/29/16 13:51 Albuterol/ Ipratropium (DuoNeb 0.5-3(2.5)mg/3ml) 3 ml Q6HRT HHN 09/28/16 19:00 10/03/16 18:59 09/30/16 01:18 Ceftriaxone Sodium/Sodium Chloride (Rocephin/Sodium Chloride) 110 ml @ 220 mls/hr Q24HRS IVPB 09/29/16 08:00 10/06/16 07:59 09/30/16 08:02 Dextrose (Dextrose 50%) STAT PRN IV Hypoglycemia 09/28/16 17:00 10/28/16 16:59 Diphenhydramine HCl (Benadryl) 25 mg Q6H PRN IVP Itching 09/29/16 08:30 10/29/16 08:29 09/30/16 05:38 Heparin Sodium (Porcine) (Heparin 5000 units/ml) 5,000 units EVERY 12 HOURS SUBQ 09/28/16 21:00 10/28/16 20:59 09/29/16 21:08 Levofloxacin (Levaquin 750mg/ D5W) 150 ml @ 100 mls/hr Q48H IVPB 10/01/16 05:00 10/08/16 04:59 Methylprednisolone Sodium Succinate 40 mg 40 mg Q8HR IVP 09/29/16 14:00 10/29/16 13:59 09/30/16 05:38 Morphine Sulfate (Morphine Sulfate) 1 mg Q8H PRN IVP Pain 4 - 10 09/29/16 19:00 10/06/16 18:59 09/30/16 08:02 Pantoprazole (Protonix) 40 mg DAILY ORAL 09/29/16 09:00 10/29/16 08:59 09/29/16 08:47 Sodium Chloride 1,000 ml @ 50 mls/hr Q20H IV 09/29/16 16:30 10/29/16 16:29 09/29/16 17:14 Priscila Rachel NP (Vanchtein) Sep 30, 2016 09:12
[2016-09-30] MEDS ORDERED: Guaifenesin/DM 10ml syrup ORAL PRN (10:15)
[2016-09-30 10:17] LABS: ALANINE AMINOTRANSFERASE 8 U/L (3-33); ANION GAP 13 (5-15); ASPARTATE AMINO TRANSFERASE 6 U/L (5-40); CALCIUM 9.4 mg/dL (8.6-10.2); CARBON DIOXIDE 20 mEQ/L (20-30); CHLORIDE 108 mEQ/L (98-107); CREATININE 2.4 mg/dL (0.5-0.9); HEMOLYSIS 2; POTASSIUM 4.5 mEQ/L (3.4-4.9); SODIUM 141 mEQ/L (135-145); TOTAL PROTEIN 6.5 g/dL (6.6-8.7)
[2016-09-30] MEDS: Heparin 5000 units/ml inj SUBQ SCH ×2 (10:28→21:35)
--- NOTE | 2016-09-30 10:56 | Infectious Diseases Prog Note ---
Assessment/Plan Assessment/Plan A; Pneumonia Bronchitis COPD Acute renal failure DM HPN Cocaine abuse P: ont pt on Rocephin and Levaquin day # 3 / Subjective ROS Limited/Unobtainable: No Constitutional: Reports: no symptoms HEENT: Reports: other - sore throat Respiratory: Reports: productive cough Cardiovascular: Reports: no symptoms Gastrointestinal/Abdominal: Reports: no symptoms Genitourinary: Reports: no symptoms Allergies: Coded Allergies: CODEINE (Unverified Allergy, Unknown, 09/28/16) Objective Vital Signs Last 24 Hour Vital Signs Date Time Temp Pulse Resp B/P Pulse Ox O2 Delivery O2 Flow Rate FiO2 09/30/16 08:16 97.8 99 20 132/81 99 Room Air 09/30/16 07:29 86 18 97 Room Air 09/30/16 07:29 Room Air 09/30/16 07:29 86 18 Room Air 09/30/16 04:00 97.7 62 20 122/77 100 Room Air 2.0 09/30/16 01:30 79 20 99 Room Air 09/30/16 01:18 77 20 96 Room Air 09/29/16 19:39 77 20 99 Room Air 09/29/16 19:21 75 20 Room Air 09/29/16 19:21 75 20 96 Room Air 09/29/16 15:57 98.0 69 15 134/92 99 Nasal Cannula 09/29/16 12:30 Room Air 09/29/16 12:30 Room Air 09/29/16 12:00 98.0 88 18 132/77 Room Air Height (Feet): 5 Height (Inches): 1.00 Weight (Pounds): 109 General Appearance: no acute distress HEENT: mucous membranes moist Respiratory/Chest: rhonchi - bilaterally Cardiovascular: normal rate Abdomen: soft, non tender Extremities: no edema Neurologic/Psychiatric: alert, oriented x 3, responsive Microbiology Date/Time Source Procedure Growth Status 09/28/16 07:15 Blood Blood Culture - Preliminary NO GROWTH AFTER 24 HOURS Resulted 09/28/16 07:00 Blood Blood Culture - Preliminary NO GROWTH AFTER 24 HOURS Resulted 09/29/16 00:40 Sputum Gram Stain - Final Resulted 09/29/16 00:40 Sputum Sputum Culture Pending Resulted Laboratory Tests Test 09/29/16 12:00 09/29/16 18:40 09/30/16 09:10 White Blood Count 15.5 K/UL (4.8-10.8) H Red Blood Count 3.77 M/UL (4.20-5.40) L Hemoglobin 12.7 G/DL (12.0-16.0) Hematocrit 39.0 % (37.0-47.0) Mean Corpuscular Volume 104 FL (80-99) H Mean Corpuscular Hemoglobin 33.6 PG (27.0-31.0) H Mean Corpuscular Hemoglobin Concent 32.5 G/DL (32.0-36.0) Red Cell Distribution Width 13.8 % (11.6-14.8) Platelet Count 266 K/UL (150-450) Mean Platelet Volume 6.6 FL (6.5-10.1) Neutrophils (%) (Auto) % (45.0-75.0) Lymphocytes (%) (Auto) % (20.0-45.0) Monocytes (%) (Auto) % (1.0-10.0) Eosinophils (%) (Auto) % (0.0-3.0) Basophils (%) (Auto) % (0.0-2.0) Differential Total Cells Counted 100 Neutrophils % (Manual) 87 % (45-75) H Lymphocytes % (Manual) 11 % (20-45) L Monocytes % (Manual) 1 % (1-10) Eosinophils % (Manual) 1 % (0-3) Basophils % (Manual) 0 % (0-2) Band Neutrophils 0 % (0-8) Platelet Estimate Adequate Platelet Morphology Normal Macrocytosis 1+ Sodium Level 140 mEQ/L (135-145) 141 mEQ/L (135-145) Potassium Level 5.5 mEQ/L (3.4-4.9) #H 5.0 mEQ/L (3.4-4.9) H 4.5 mEQ/L (3.4-4.9) Chloride Level 109 mEQ/L (98-107) H 108 mEQ/L (98-107) H Carbon Dioxide Level 19 mEQ/L (20-30) L 20 mEQ/L (20-30) Anion Gap 12 (5-15) 13 (5-15) Blood Urea Nitrogen 35 mg/dL (7-23) H 40 mg/dL (7-23) H Creatinine 2.7 mg/dL (0.5-0.9) H 2.4 mg/dL (0.5-0.9) H Estimat Glomerular Filtration Rate 21.8 mL/min (>60) 25.0 mL/min (>60) Glucose Level 152 mg/dL (74-106) H 272 mg/dL (74-106) #H Calcium Level 9.6 mg/dL (8.6-10.2) 9.4 mg/dL (8.6-10.2) Total Bilirubin < 0.2 mg/dL (0.0-1.2) < 0.2 mg/dL (0.0-1.2) Aspartate Amino Transf (AST/SGOT) 8 U/L (5-40) 6 U/L (5-40) Alanine Aminotransferase (ALT/SGPT) 8 U/L (3-33) 8 U/L (3-33) Alkaline Phosphatase 52 U/L (35-104) 57 U/L (35-104) Total Protein 7.1 g/dL (6.6-8.7) 6.5 g/dL (6.6-8.7) L Albumin 3.5 g/dL (3.5-5.2) 3.4 g/dL (3.5-5.2) L Globulin 3.6 g/dL 3.1 g/dL Albumin/Globulin Ratio 0.9 (1.0-2.7) L 1.0 (1.0-2.7) Calcium (Send out) Pending Phosphorus Level 3.6 mg/dL (2.5-4.8) Magnesium Level 1.7 mg/dL (1.7-2.5) Vitamin D 25-Hydroxy Pending 25-Hydroxy Vitamin D2 Pending 25-Hydroxy Vitamin D3 Pending Parathyroid Hormone (Intact) Pending Current Medications Medications (Trade) Dose Ordered Sig/Wilma Route PRN Reason Start Time Stop Time Status Last Admin Dose Admin Acetaminophen (Tylenol) 500 mg Q4H PRN ORAL MILD PAIN/T>100.5 09/28/16 17:00 10/28/16 16:59 09/29/16 13:51 Albuterol/ Ipratropium (DuoNeb 0.5-3(2.5)mg/3ml) 3 ml Q6HRT HHN 09/28/16 19:00 10/03/16 18:59 09/30/16 01:18 Ceftriaxone Sodium/Sodium Chloride (Rocephin/Sodium Chloride) 110 ml @ 220 mls/hr Q24HRS IVPB 09/29/16 08:00 10/06/16 07:59 09/30/16 08:02 Dextrose (Dextrose 50%) STAT PRN IV Hypoglycemia 09/28/16 17:00 10/28/16 16:59 Diphenhydramine HCl 25 mg 25 mg Q6H PRN IVP Itching 09/29/16 08:30 10/29/16 08:29 09/30/16 05:38 Guaifenesin/ Dextromethorphan (Robitussin DM) 10 ml Q4H PRN ORAL For Cough 09/30/16 10:47 10/30/16 10:14 Heparin Sodium (Porcine) (Heparin 5000 units/ml) 5,000 units EVERY 12 HOURS SUBQ 09/28/16 21:00 10/28/16 20:59 09/30/16 10:28 Levofloxacin (Levaquin 750mg/ D5W) 150 ml @ 100 mls/hr Q48H IVPB 10/01/16 05:00 10/08/16 04:59 Methylprednisolone Sodium Succinate (Solu-MEDROL) 40 mg Q12HR IVP 09/30/16 21:00 10/30/16 20:59 Morphine Sulfate (Morphine Sulfate) 1 mg Q8H PRN IVP Pain 4 - 10 09/29/16 19:00 10/06/16 18:59 09/30/16 08:02 Pantoprazole (Protonix) 40 mg DAILY ORAL 09/29/16 09:00 10/29/16 08:59 09/30/16 10:26 Sodium Chloride 1,000 ml @ 50 mls/hr Q20H IV 09/29/16 16:30 10/29/16 16:29 09/29/16 17:14 GIO MITCHELL Sep 30, 2016 10:56
[2016-09-30] MEDS: guaiFENesin DM 100mg/5ml ORAL PRN ×2 (10:57→17:14)
[2016-09-30] MEDS ORDERED: guaiFENesin 100mg/5ml Liq ud ORAL PRN (11:00)
[2016-09-30 11:48] VITALS: BP 130/75
--- NOTE | 2016-09-30 12:58 | Nephrology Progress Note ---
Assessment/Plan Problem List: (1) Renal failure (ARF), acute on chronic Assessment: better (2) COPD exacerbation Plan IVF follow BMP check PTH Subjective Subjective In NAD Objective Objective Last 24 Hour Vital Signs Date Time Temp Pulse Resp B/P Pulse Ox O2 Delivery O2 Flow Rate FiO2 09/30/16 11:48 98.0 95 20 130/75 99 Room Air 09/30/16 08:16 97.8 99 20 132/81 99 Room Air 09/30/16 07:29 86 18 97 Room Air 09/30/16 07:29 Room Air 09/30/16 07:29 86 18 Room Air 09/30/16 04:00 97.7 62 20 122/77 100 Room Air 2.0 09/30/16 01:30 79 20 99 Room Air 09/30/16 01:18 77 20 96 Room Air 09/29/16 19:39 77 20 99 Room Air 09/29/16 19:21 75 20 Room Air 09/29/16 19:21 75 20 96 Room Air 09/29/16 15:57 98.0 69 15 134/92 99 Nasal Cannula Intake and Output 09/29/16 09/30/16 19:00 07:00 Intake Total 930 ml 600 ml Balance 930 ml 600 ml Intake Oral 880 ml IV Total 50 ml 600 ml # Voids 3 4 Laboratory Tests 09/29/16 18:40: Potassium Level 5.0H 09/30/16 09:10: Potassium Level 4.5, Sodium Level 141, Chloride Level 108H, Carbon Dioxide Level 20, Anion Gap 13, Blood Urea Nitrogen 40H, Creatinine 2.4H, Estimat Glomerular Filtration Rate 25.0, Glucose Level 272#H, Calcium Level 9.4, Calcium (Send out) [Pending], Phosphorus Level 3.6, Magnesium Level 1.7, Total Bilirubin < 0.2, Aspartate Amino Transf (AST/SGOT) 6, Alanine Aminotransferase ( ALT/SGPT) 8, Alkaline Phosphatase 57, Total Protein 6.5L, Albumin 3.4L, Globulin 3.1, Albumin/Globulin Ratio 1.0, Vitamin D 25-Hydroxy [Pending], 25- Hydroxy Vitamin D2 [Pending], 25-Hydroxy Vitamin D3 [Pending], Parathyroid Hormone (Intact) [Pending] Height (Feet): 5 Height (Inches): 1.00 Weight (Pounds): 109 Cardiovascular: regularly irregular Respiratory/Chest: lungs clear SAVANNAH MITCHELL Sep 30, 2016 12:58
--- NOTE | 2016-09-30 14:19 | General Progress Note ---
Assessment/Plan Status: stable Assessment/Plan ASSESSMENT: 1. Chronic obstructive pulmonary disease exacerbation. 2. Substance abuse. 3. Renal failure (age indeterminate). 4. Hyperkalemia. 5. Abnormal BNP.with Normal EF 6. Gastrointestinal and deep vein thrombosis prophylaxis. PLAN OF CARE: Plan: Pulmonary Nephro ID Notes are reviewed I will provide Kayoxalate. As PRN basis Worsening Renal function Subjective ROS Limited/Unobtainable: No HEENT: Reports: no symptoms Respiratory: Reports: shortness of breath Allergies: Coded Allergies: CODEINE (Unverified Allergy, Unknown, 09/28/16) Objective Last 24 Hour Vital Signs Date Time Temp Pulse Resp B/P Pulse Ox O2 Delivery O2 Flow Rate FiO2 09/30/16 13:14 79 18 97 Room Air 09/30/16 13:14 80 20 98 Room Air 09/30/16 11:48 98.0 95 20 130/75 99 Room Air 09/30/16 08:16 97.8 99 20 132/81 99 Room Air 09/30/16 07:29 86 18 97 Room Air 09/30/16 07:29 Room Air 09/30/16 07:29 86 18 Room Air 09/30/16 04:00 97.7 62 20 122/77 100 Room Air 2.0 09/30/16 01:30 79 20 99 Room Air 09/30/16 01:18 77 20 96 Room Air 09/29/16 19:39 77 20 99 Room Air 09/29/16 19:21 75 20 Room Air 09/29/16 19:21 75 20 96 Room Air 09/29/16 15:57 98.0 69 15 134/92 99 Nasal Cannula Intake and Output 09/29/16 09/30/16 19:00 07:00 Intake Total 930 ml 600 ml Balance 930 ml 600 ml Intake Oral 880 ml IV Total 50 ml 600 ml # Voids 3 4 Laboratory Tests 09/29/16 18:40: Potassium Level 5.0H 09/30/16 09:10: Potassium Level 4.5, Sodium Level 141, Chloride Level 108H, Carbon Dioxide Level 20, Anion Gap 13, Blood Urea Nitrogen 40H, Creatinine 2.4H, Estimat Glomerular Filtration Rate 25.0, Glucose Level 272#H, Calcium Level 9.4, Calcium (Send out) [Pending], Phosphorus Level 3.6, Magnesium Level 1.7, Total Bilirubin < 0.2, Aspartate Amino Transf (AST/SGOT) 6, Alanine Aminotransferase ( ALT/SGPT) 8, Alkaline Phosphatase 57, Total Protein 6.5L, Albumin 3.4L, Globulin 3.1, Albumin/Globulin Ratio 1.0, Vitamin D 25-Hydroxy [Pending], 25- Hydroxy Vitamin D2 [Pending], 25-Hydroxy Vitamin D3 [Pending], Parathyroid Hormone (Intact) [Pending] Height (Feet): 5 Height (Inches): 1.00 Weight (Pounds): 109 General Appearance: no apparent distress EENT: PERRL/EOMI Neck: supple Cardiovascular: normal rate Respiratory/Chest: lungs clear Abdomen: soft Extremities: non-tender 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
[2016-09-30 16:32] VITALS: BP 136/73
--- NOTE | 2016-09-30 17:50 | Cardiology Progress Note ---
Assessment/Plan Assessment/Plan The patient is seen and examined, full consult note is dictated. Objective Last 24 Hour Vital Signs Date Time Temp Pulse Resp B/P Pulse Ox O2 Delivery O2 Flow Rate FiO2 09/30/16 16:32 98.4 104 19 136/73 96 Room Air 09/30/16 13:14 79 18 97 Room Air 09/30/16 13:14 80 20 98 Room Air 09/30/16 11:48 98.0 95 20 130/75 99 Room Air 09/30/16 08:16 97.8 99 20 132/81 99 Room Air 09/30/16 07:29 86 18 97 Room Air 09/30/16 07:29 Room Air 09/30/16 07:29 86 18 Room Air 09/30/16 04:00 97.7 62 20 122/77 100 Room Air 2.0 09/30/16 01:30 79 20 99 Room Air 09/30/16 01:18 77 20 96 Room Air 09/29/16 19:39 77 20 99 Room Air 09/29/16 19:21 75 20 Room Air 09/29/16 19:21 75 20 96 Room Air Intake and Output 09/29/16 09/30/16 19:00 07:00 Intake Total 930 ml 600 ml Balance 930 ml 600 ml Intake Oral 880 ml IV Total 50 ml 600 ml # Voids 3 4 Laboratory Tests Test 09/29/16 18:40 09/30/16 09:10 Potassium Level 5.0 mEQ/L (3.4-4.9) H 4.5 mEQ/L (3.4-4.9) Sodium Level 141 mEQ/L (135-145) Chloride Level 108 mEQ/L (98-107) H Carbon Dioxide Level 20 mEQ/L (20-30) Anion Gap 13 (5-15) Blood Urea Nitrogen 40 mg/dL (7-23) H Creatinine 2.4 mg/dL (0.5-0.9) H Estimat Glomerular Filtration Rate 25.0 mL/min (>60) Glucose Level 272 mg/dL (74-106) #H Calcium Level 9.4 mg/dL (8.6-10.2) Calcium (Send out) Pending Phosphorus Level 3.6 mg/dL (2.5-4.8) Magnesium Level 1.7 mg/dL (1.7-2.5) Total Bilirubin < 0.2 mg/dL (0.0-1.2) Aspartate Amino Transf (AST/SGOT) 6 U/L (5-40) Alanine Aminotransferase (ALT/SGPT) 8 U/L (3-33) Alkaline Phosphatase 57 U/L (35-104) Total Protein 6.5 g/dL (6.6-8.7) L Albumin 3.4 g/dL (3.5-5.2) L Globulin 3.1 g/dL Albumin/Globulin Ratio 1.0 (1.0-2.7) Vitamin D 25-Hydroxy Pending 25-Hydroxy Vitamin D2 Pending 25-Hydroxy Vitamin D3 Pending Parathyroid Hormone (Intact) Pending Microbiology Date/Time Source Procedure Growth Status 09/28/16 07:15 Blood Blood Culture - Preliminary NO GROWTH AFTER 24 HOURS Resulted 09/28/16 07:00 Blood Blood Culture - Preliminary NO GROWTH AFTER 24 HOURS Resulted 09/29/16 00:40 Sputum Gram Stain - Final Resulted 09/29/16 00:40 Sputum Sputum Culture Pending Resulted ANDERSON LEHMAN Sep 30, 2016 17:50
[2016-10-01] MEDS: Morphine Sulfate 2mg/ml Inj IVP PRN ×3 (00:28→18:05)
[2016-10-01] MEDS: DuoNeb 0.5-3(2.5)mg/3ml neb HHN SCH ×4 (01:00→19:29)
[2016-10-01 04:00] VITALS: BP 122/73
[2016-10-01] MEDS: sitaGLIPtin 25mg tab ORAL SCH (06:12)
--- NOTE | 2016-10-01 06:16 | Consultation ---
DATE OF CONSULTATION: 09/30/2016 CARDIOLOGY CONSULTATION CONSULTING PHYSICIAN: Juan Miguel Reyes M.D. REFERRING PHYSICIAN: Phyllis Childs M.D. REASON FOR CONSULTATION: Management of dyspnea. HISTORY OF PRESENT ILLNESS: The patient is a very unfortunate 61-year-old female, who presented to the hospital with complaints of dyspnea. According to the patient has been smoking marijuana mixed with cocaine. Dyspnea was associated with a productive cough. She has exacerbation of the COPD in the past. She claims that her phlegm is white color that shows phlegm that she had been associated with diarrhea and occasional vomiting. At the time of presentation to the emergency department, she was complaining of headache, feeling of lethargy and fatigue. PAST MEDICAL HISTORY: 1. Hypertension. 2. Asthma/chronic obstructive pulmonary disease. 3. Diabetes mellitus. PAST SURGICAL HISTORY: None. MEDICATIONS: List of medications at home including albuterol inhaler as needed for shortness of breath, Colace 100 mg three times daily, and tramadol 50 mg q.6 hours p.r.n. pain. ALLERGIES: Allergies to codeine. SOCIAL HISTORY: History of cocaine use. History of marijuana use. She denies any alcohol use. REVIEW OF SYSTEMS: A 12-system reviewed done, essentially negative except what mentioned in the history of present illness. PHYSICAL EXAMINATION: VITAL SIGNS: Blood pressure was 161/86, respirations 37, pulse rate of 117, temperature 98.1 degrees Fahrenheit, and O2 saturation of 94% on room air. GENERAL: The patient is a very unfortunate 61-year-old female, who is in no apparent respiratory distress. HEENT: Atraumatic and normocephalic. Anicteric. Pupils are equal, round, and reactive to light and accommodation. Extraocular muscles intact. NECK: JVP is less than 5 cm. No carotid bruits. Carotid upstrokes is 2+ bilaterally. CARDIOVASCULAR: Normal S1 and S2. Regular rate and rhythm. No murmurs, gallops, or rubs. PMI is at fourth intercostal space in the midclavicular line. LUNGS: Diminished breath sounds in both lungs with prolonged expiration and there is a presence diffuse rhonchi in both lungs. ABDOMEN: Soft, nontender, and nondistended. No hepatosplenomegaly. Positive bowel sounds. EXTREMITIES: No evidence of edema, clubbing, or cyanosis. LABORATORY FINDINGS: WBC 15.1, hemoglobin 14.7, hematocrit 45.2, and platelet count is 309,000. Sodium is 142, potassium is 3.6, chloride 107, bicarbonate 19, BUN of 35, creatinine 3.4, glucose is 107, and calcium . ProBNP was 364. Troponin I was less than 0.3. INR is 1.0. Toxicology urine showed presence of opiates as well as cocaine. Imaging study included chest x-ray that showed interstitial edema and cardiomegaly. ASSESSMENT AND PLAN: The patient is a very unfortunate 61-year-old female, seen in Cardiology consultation at request of Dr. Childs. 1. Dyspnea, most likely acute exacerbation of chronic obstructive pulmonary disease, which is most likely determined clinically. Although, chest x-ray shows some evidence of the interstitial edema and mild elevation of BNP. I doubt I will be dealing with heart failure at this time. In fact, a 2D echocardiography was reviewed and reveals a normal intracardiac filling pressure with a diastolic data revealing abnormality and then normal E/e prime ratio suggestive of normal intracardiac filling pressures. 2. The left ventricular systolic function was also within normal limits. 3. A 12-lead electrocardiogram, area reviewed shows evidence of right atrial enlargement, but no ST and T-wave abnormalities. I would like to thank, Dr. Childs for allowing me to participate in the care of this patient. Juan Miguel Reyes M.D. DR: OSMANY JOB#: [id number] CC:
[2016-10-01 07:21] LABS: BASOPHILS % (AUTO) 0.5 % (0.0-2.0); EOSINOPHILS % (AUTO) 0.3 % (0.0-3.0); LYMPHOCYTES % (AUTO) 22.7 % (20.0-45.0); MEAN CORPUSCULAR HEMOGLOBIN 34.3 PG (27.0-31.0); MEAN CORPUSCULAR HGB CONC 33.2 G/DL (32.0-36.0); MEAN CORPUSCULAR VOLUME 103 FL (80-99); MEAN PLATELET VOLUME 7.1 FL (6.5-10.1); MONOCYTES % (AUTO) 3.6 % (1.0-10.0); NEUTROPHILS % (AUTO) 72.9 % (45.0-75.0); PLATELET COUNT 283 K/UL (150-450); RED CELL DISTRIBUTION WIDTH 13.4 % (11.6-14.8); WHITE BLOOD COUNT 12.9 K/UL (4.8-10.8)
[2016-10-01] MEDS: Solu-MEDROL 40mg Inj IVP SCH (08:31)
[2016-10-01] MEDS: DiphenhydrAMINE 50mg/ml Inj IVP PRN ×2 (08:31→18:05)
[2016-10-01] MEDS: cefTRIAXone 2 GM in NS 110 ML IVPB SCH (08:32)
[2016-10-01 08:46] VITALS: BP 122/73
[2016-10-01] MEDS: Acetaminophen 500mg (ES) tab ORAL PRN (08:47)
[2016-10-01] MEDS: guaiFENesin DM 100mg/5ml ORAL PRN ×2 (08:50→13:41)
[2016-10-01] MEDS: Heparin 5000 units/ml inj SUBQ SCH ×2 (08:50→21:00)
--- NOTE | 2016-10-01 08:57 | Infectious Diseases Prog Note ---
Assessment/Plan Assessment/Plan A: ASSESSMENT: The patient is a 61-year-old female with: Pneumonia Leukocytosis ( on steroids ) Bronchitis Bilateral nonobstructing nephrolithiasis history of cocaine and marijuana abuse Smoker History of COPD Hypertension Diabetes PLAN: cont pt on Rocephin and Levaquin day # 4 /5 Monitor CBC Monitor BMP Monitor cultures (blood and sputum). chest x-rays. Subjective Allergies: Coded Allergies: CODEINE (Unverified Allergy, Unknown, 09/28/16) Subjective comfortable Objective Vital Signs Last 24 Hour Vital Signs Date Time Temp Pulse Resp B/P Pulse Ox O2 Delivery O2 Flow Rate FiO2 10/01/16 08:47 122/73 10/01/16 08:46 97.9 83 20 122/73 100 Nasal Cannula 2.0 10/01/16 08:00 71 17 99 Nasal Cannula 2.0 10/01/16 07:53 69 18 99 Room Air 10/01/16 07:51 69 17 Room Air 10/01/16 06:13 81 122/73 10/01/16 04:00 98.7 81 20 122/73 97 Room Air 2.0 10/01/16 01:07 Room Air 10/01/16 01:07 Room Air 09/30/16 21:33 136/73 09/30/16 19:42 Room Air 09/30/16 19:42 Room Air 09/30/16 19:42 Room Air 09/30/16 18:44 136/73 09/30/16 16:32 98.4 104 19 136/73 96 Room Air 09/30/16 13:14 79 18 97 Room Air 09/30/16 13:14 80 20 98 Room Air 09/30/16 11:48 98.0 95 20 130/75 99 Room Air Height (Feet): 5 Height (Inches): 1.00 Weight (Pounds): 109 HEENT: PERRL Respiratory/Chest: no respiratory distress Cardiovascular: regular rhythm Abdomen: soft, non tender Microbiology Date/Time Source Procedure Growth Status 09/29/16 00:40 Sputum Gram Stain - Final Resulted 09/29/16 00:40 Sputum Sputum Culture - Preliminary Resulted Laboratory Tests Test 09/30/16 09:10 10/01/16 06:20 Sodium Level 141 mEQ/L (135-145) Potassium Level 4.5 mEQ/L (3.4-4.9) Chloride Level 108 mEQ/L (98-107) H Carbon Dioxide Level 20 mEQ/L (20-30) Anion Gap 13 (5-15) Blood Urea Nitrogen 40 mg/dL (7-23) H Creatinine 2.4 mg/dL (0.5-0.9) H Estimat Glomerular Filtration Rate 25.0 mL/min (>60) Glucose Level 272 mg/dL (74-106) #H Calcium Level 9.4 mg/dL (8.6-10.2) Calcium (Send out) Pending Phosphorus Level 3.6 mg/dL (2.5-4.8) Magnesium Level 1.7 mg/dL (1.7-2.5) Total Bilirubin < 0.2 mg/dL (0.0-1.2) Aspartate Amino Transf (AST/SGOT) 6 U/L (5-40) Alanine Aminotransferase (ALT/SGPT) 8 U/L (3-33) Alkaline Phosphatase 57 U/L (35-104) Total Protein 6.5 g/dL (6.6-8.7) L Albumin 3.4 g/dL (3.5-5.2) L Globulin 3.1 g/dL Albumin/Globulin Ratio 1.0 (1.0-2.7) Vitamin D 25-Hydroxy Pending 25-Hydroxy Vitamin D2 Pending 25-Hydroxy Vitamin D3 Pending Parathyroid Hormone (Intact) Pending White Blood Count 12.9 K/UL (4.8-10.8) H Red Blood Count 3.50 M/UL (4.20-5.40) L Hemoglobin 12.0 G/DL (12.0-16.0) Hematocrit 36.2 % (37.0-47.0) L Mean Corpuscular Volume 103 FL (80-99) H Mean Corpuscular Hemoglobin 34.3 PG (27.0-31.0) H Mean Corpuscular Hemoglobin Concent 33.2 G/DL (32.0-36.0) Red Cell Distribution Width 13.4 % (11.6-14.8) Platelet Count 283 K/UL (150-450) Mean Platelet Volume 7.1 FL (6.5-10.1) Neutrophils (%) (Auto) 72.9 % (45.0-75.0) Lymphocytes (%) (Auto) 22.7 % (20.0-45.0) Monocytes (%) (Auto) 3.6 % (1.0-10.0) Eosinophils (%) (Auto) 0.3 % (0.0-3.0) Basophils (%) (Auto) 0.5 % (0.0-2.0) Hemoglobin A1c 6.1 % (< 6.0) H Current Medications Medications (Trade) Dose Ordered Sig/Wilma Route PRN Reason Start Time Stop Time Status Last Admin Dose Admin Acetaminophen (Tylenol) 500 mg Q4H PRN ORAL MILD PAIN/T>100.5 09/28/16 17:00 10/28/16 16:59 10/01/16 08:47 Albuterol/ Ipratropium (DuoNeb 0.5-3(2.5)mg/3ml) 3 ml Q6HRT HHN 09/28/16 19:00 10/03/16 18:59 10/01/16 07:50 Ceftriaxone Sodium/Sodium Chloride (Rocephin/Sodium Chloride) 110 ml @ 220 mls/hr Q24HRS IVPB 09/29/16 08:00 10/06/16 07:59 10/01/16 08:32 Dextrose (Dextrose 50%) STAT PRN IV Hypoglycemia 09/28/16 17:00 10/28/16 16:59 Diltiazem HCl (Cardizem) 30 mg EVERY 8 HOURS ORAL 09/30/16 18:30 10/30/16 18:29 10/01/16 06:13 Diphenhydramine HCl 25 mg 25 mg Q6H PRN IVP Itching 09/29/16 08:30 10/29/16 08:29 10/01/16 08:31 Guaifenesin/ Dextromethorphan (Robitussin DM) 10 ml Q4H PRN ORAL For Cough 09/30/16 10:47 10/30/16 10:14 10/01/16 08:50 Heparin Sodium (Porcine) (Heparin 5000 units/ml) 5,000 units EVERY 12 HOURS SUBQ 09/28/16 21:00 10/28/16 20:59 10/01/16 08:50 Isosorbide Dinitrate (Isordil) 10 mg QID ORAL 09/30/16 18:30 10/30/16 18:29 10/01/16 08:47 Levofloxacin (Levaquin 750mg/ D5W) 150 ml @ 100 mls/hr Q48H IVPB 10/01/16 05:00 10/08/16 04:59 10/01/16 04:07 Methylprednisolone Sodium Succinate (Solu-MEDROL) 40 mg Q12HR IVP 09/30/16 21:00 10/30/16 20:59 10/01/16 08:31 Morphine Sulfate (Morphine Sulfate) 1 mg Q8H PRN IVP Pain 4 - 10 09/29/16 19:00 10/06/16 18:59 10/01/16 08:32 Pantoprazole (Protonix) 40 mg DAILY ORAL 09/29/16 09:00 10/29/16 08:59 10/01/16 08:47 Sitagliptin Phosphate (Januvia) 25 mg ACBREAKFAST ORAL 10/01/16 06:30 10/31/16 06:29 10/01/16 06:12 Sodium Chloride 1,000 ml @ 50 mls/hr Q20H IV 09/29/16 16:30 10/29/16 16:29 10/01/16 08:45 CAROLANN MARCUS M.D. Oct 01, 2016 08:57
--- NOTE | 2016-10-01 09:15 | Diagnostic Imaging Report ---
Indication: Normal renal function tests Technique: ULT RENAL Comparison: None. Findings: The kidney is echogenic. The right kidney is small measuring 8.7 cm. Left kidney measures 9.2 cm. Echogenicity of the left kidney is probably normal. There is an echogenic focus within the left kidney with bowing measuring approximate 7 mm. An additional one is also seen in the lower pole the left kidney measuring 8 mm. There is echogenic focus in the bladder is collapsed. Inferior vena cava is normal. Impression: Echogenic right kidney consistent with intrinsic renal disease. Left renal calculi. Bladder echogenic focus. It is uncertain whether this represents a calculus whether this may represent air in the bladder from previous instrumentation.
--- NOTE | 2016-10-01 09:42 | General Progress Note ---
Assessment/Plan Status: stable Assessment/Plan ASSESSMENT: 1. Chronic obstructive pulmonary disease exacerbation. 2. Substance abuse. 3. Renal failure (age indeterminate). 4. Hyperkalemia. 5. Abnormal BNP.with Normal EF 6. Gastrointestinal and deep vein thrombosis prophylaxis. PLAN OF CARE: Plan: Pulmonary Nephro ID Notes are reviewed I will provide Kayoxalate. As PRN basis Current management. Subjective ROS Limited/Unobtainable: No Constitutional: Reports: no symptoms HEENT: Reports: no symptoms Cardiovascular: Reports: no symptoms Respiratory: Reports: no symptoms Allergies: Coded Allergies: CODEINE (Unverified Allergy, Unknown, 09/28/16) Objective Last 24 Hour Vital Signs Date Time Temp Pulse Resp B/P Pulse Ox O2 Delivery O2 Flow Rate FiO2 10/01/16 08:47 122/73 10/01/16 08:46 97.9 83 20 122/73 100 Nasal Cannula 2.0 10/01/16 08:00 71 17 99 Nasal Cannula 2.0 10/01/16 07:53 69 18 99 Room Air 10/01/16 07:51 69 17 Room Air 10/01/16 06:13 81 122/73 10/01/16 04:00 98.7 81 20 122/73 97 Room Air 2.0 10/01/16 01:07 Room Air 10/01/16 01:07 Room Air 09/30/16 21:33 136/73 09/30/16 19:42 Room Air 09/30/16 19:42 Room Air 09/30/16 19:42 Room Air 09/30/16 18:44 136/73 09/30/16 16:32 98.4 104 19 136/73 96 Room Air 09/30/16 13:14 79 18 97 Room Air 09/30/16 13:14 80 20 98 Room Air 09/30/16 11:48 98.0 95 20 130/75 99 Room Air Intake and Output 09/30/16 10/01/16 19:00 07:00 Intake Total 1380 ml 450 ml Balance 1380 ml 450 ml Intake Oral 720 ml IV Total 660 ml 450 ml # Voids 2 5 Laboratory Tests 10/01/16 06:20: White Blood Count 12.9H, Red Blood Count 3.50L, Hemoglobin 12.0, Hematocrit 36.2L, Mean Corpuscular Volume 103H, Mean Corpuscular Hemoglobin 34.3H, Mean Corpuscular Hemoglobin Concent 33.2, Red Cell Distribution Width 13.4, Platelet Count 283, Mean Platelet Volume 7.1, Neutrophils (%) (Auto) 72.9, Lymphocytes (% ) (Auto) 22.7, Monocytes (%) (Auto) 3.6, Eosinophils (%) (Auto) 0.3, Basophils ( %) (Auto) 0.5, Hemoglobin A1c 6.1H Height (Feet): 5 Height (Inches): 1.00 Weight (Pounds): 109 General Appearance: no apparent distress EENT: PERRL/EOMI Neck: supple Cardiovascular: normal rate Respiratory/Chest: rhonchi - bilaterally Abdomen: soft Extremities: non-tender Neurologic: chief of staff II-XII grossly normal Phyllis Childs MD Oct 01, 2016 09:42
[2016-10-01 12:00] VITALS: BP 128/80
--- NOTE | 2016-10-01 12:15 | Diagnostic Imaging Report ---
Indication: Shortness of breath Technique: One view of the chest Comparison: One half hours earlier Findings: Interim partial improvement of previously demonstrated interstitial edema. Costophrenic angles are sharp. Left axillary surgical clips are again noted. Impression: Improving interstitial edema. Likely improving bilateral pleural effusions
--- NOTE | 2016-10-01 14:43 | Nephrology Progress Note ---
Assessment/Plan Problem List: (1) Renal failure (ARF), acute on chronic Assessment: better (2) COPD exacerbation Assessment: still wheezing Plan Await PTH res treatments Discussed with Subjective Subjective In NAD Objective Objective Last 24 Hour Vital Signs Date Time Temp Pulse Resp B/P Pulse Ox O2 Delivery O2 Flow Rate FiO2 10/01/16 13:41 128/80 10/01/16 13:41 85 128/80 10/01/16 13:32 82 17 99 Nasal Cannula 2.0 10/01/16 13:24 85 17 99 Nasal Cannula 2.0 10/01/16 12:00 98.0 78 20 128/80 98 Room Air 10/01/16 10:33 98.7 10/01/16 10:33 98.7 10/01/16 08:47 122/73 10/01/16 08:46 97.9 83 20 122/73 100 Nasal Cannula 2.0 10/01/16 08:00 71 17 99 Nasal Cannula 2.0 10/01/16 07:53 69 18 99 Room Air 10/01/16 07:51 69 17 Room Air 10/01/16 06:13 81 122/73 10/01/16 04:00 98.7 81 20 122/73 97 Room Air 2.0 10/01/16 01:07 Room Air 10/01/16 01:07 Room Air 09/30/16 21:33 136/73 09/30/16 19:42 Room Air 09/30/16 19:42 Room Air 09/30/16 19:42 Room Air 09/30/16 18:44 136/73 09/30/16 16:32 98.4 104 19 136/73 96 Room Air Intake and Output 09/30/16 10/01/16 19:00 07:00 Intake Total 1380 ml 500 ml Balance 1380 ml 500 ml Intake Oral 720 ml IV Total 660 ml 500 ml # Voids 2 5 Laboratory Tests 10/01/16 06:20: White Blood Count 12.9H, Red Blood Count 3.50L, Hemoglobin 12.0, Hematocrit 36.2L, Mean Corpuscular Volume 103H, Mean Corpuscular Hemoglobin 34.3H, Mean Corpuscular Hemoglobin Concent 33.2, Red Cell Distribution Width 13.4, Platelet Count 283, Mean Platelet Volume 7.1, Neutrophils (%) (Auto) 72.9, Lymphocytes (% ) (Auto) 22.7, Monocytes (%) (Auto) 3.6, Eosinophils (%) (Auto) 0.3, Basophils ( %) (Auto) 0.5, Hemoglobin A1c 6.1H Height (Feet): 5 Height (Inches): 1.00 Weight (Pounds): 109 Cardiovascular: normal rate Respiratory/Chest: expiratory wheezing Extremities: other - no edema SAVANNAH MITCHELL Oct 01, 2016 14:43
[2016-10-01 16:01] VITALS: BP 127/68
[2016-10-01] MEDS: Lactulose 20gm/30ml UDC ORAL SCH (18:20)
[2016-10-01] MEDS: Docusate 100mg cap ORAL SCH (18:20)
--- NOTE | 2016-10-01 18:27 | Pulmonology Progress Note ---
Assessment/Plan Problems: (1) COPD exacerbation (2) Chronic kidney disease (3) Cardiomegaly Assessment/Plan improving respiratory treatment laxatives for constipation ok to dc Subjective ROS Limited/Unobtainable: No Constitutional: Reports: no symptoms HEENT: Repors: no symptoms Allergies: Coded Allergies: CODEINE (Unverified Allergy, Unknown, 09/28/16) Objective Last 24 Hour Vital Signs Date Time Temp Pulse Resp B/P Pulse Ox O2 Delivery O2 Flow Rate FiO2 10/01/16 18:20 127/68 10/01/16 16:01 97.3 81 19 127/68 97 Room Air 10/01/16 13:41 128/80 10/01/16 13:41 85 128/80 10/01/16 13:32 82 17 99 Nasal Cannula 2.0 10/01/16 13:24 85 17 99 Nasal Cannula 2.0 10/01/16 12:00 98.0 78 20 128/80 98 Room Air 10/01/16 10:33 98.7 10/01/16 10:33 98.7 10/01/16 08:47 122/73 10/01/16 08:46 97.9 83 20 122/73 100 Nasal Cannula 2.0 10/01/16 08:00 71 17 99 Nasal Cannula 2.0 10/01/16 07:53 69 18 99 Room Air 10/01/16 07:51 69 17 Room Air 10/01/16 06:13 81 122/73 10/01/16 04:00 98.7 81 20 122/73 97 Room Air 2.0 10/01/16 01:07 Room Air 10/01/16 01:07 Room Air 09/30/16 21:33 136/73 09/30/16 19:42 Room Air 09/30/16 19:42 Room Air 09/30/16 19:42 Room Air 09/30/16 18:44 136/73 Intake and Output 09/30/16 10/01/16 19:00 07:00 Intake Total 1380 ml 500 ml Balance 1380 ml 500 ml Intake Oral 720 ml IV Total 660 ml 500 ml # Voids 2 5 General Appearance: WD/WN HEENT: normocephalic Respiratory/Chest: chest wall non-tender, lungs clear Breasts: no masses Cardiovascular: normal peripheral pulses, normal rate Abdomen: normal bowel sounds, soft, non tender Genitourinary: normal external genitalia Extremities: no cyanosis Microbiology Date/Time Source Procedure Growth Status 09/29/16 00:40 Sputum Gram Stain - Final Resulted 09/29/16 00:40 Sputum Sputum Culture - Preliminary Resulted Laboratory Tests 10/01/16 06:20: White Blood Count 12.9H, Red Blood Count 3.50L, Hemoglobin 12.0, Hematocrit 36.2L, Mean Corpuscular Volume 103H, Mean Corpuscular Hemoglobin 34.3H, Mean Corpuscular Hemoglobin Concent 33.2, Red Cell Distribution Width 13.4, Platelet Count 283, Mean Platelet Volume 7.1, Neutrophils (%) (Auto) 72.9, Lymphocytes (% ) (Auto) 22.7, Monocytes (%) (Auto) 3.6, Eosinophils (%) (Auto) 0.3, Basophils ( %) (Auto) 0.5, Hemoglobin A1c 6.1H Current Medications Medications (Trade) Dose Ordered Sig/Wilma Route PRN Reason Start Time Stop Time Status Last Admin Dose Admin Acetaminophen (Tylenol) 500 mg Q4H PRN ORAL MILD PAIN/T>100.5 09/28/16 17:00 10/28/16 16:59 10/01/16 08:47 Albuterol/ Ipratropium (DuoNeb 0.5-3(2.5)mg/3ml) 3 ml Q6HRT HHN 09/28/16 19:00 10/03/16 18:59 10/01/16 13:21 Ceftriaxone Sodium/Sodium Chloride (Rocephin/Sodium Chloride) 110 ml @ 220 mls/hr Q24HRS IVPB 09/29/16 08:00 10/06/16 07:59 10/01/16 08:32 Dextrose (Dextrose 50%) STAT PRN IV Hypoglycemia 09/28/16 17:00 10/28/16 16:59 Diltiazem HCl (Cardizem) 30 mg EVERY 8 HOURS ORAL 09/30/16 18:30 10/30/16 18:29 10/01/16 13:41 Diphenhydramine HCl 25 mg 25 mg Q6H PRN IVP Itching 09/29/16 08:30 10/29/16 08:29 10/01/16 18:05 Docusate Sodium (Colace) 100 mg THREE TIMES A DAY ORAL 10/01/16 18:00 10/31/16 17:59 10/01/16 18:20 Guaifenesin/ Dextromethorphan (Robitussin DM) 10 ml Q4H PRN ORAL For Cough 09/30/16 10:47 10/30/16 10:14 10/01/16 13:41 Heparin Sodium (Porcine) (Heparin 5000 units/ml) 5,000 units EVERY 12 HOURS SUBQ 09/28/16 21:00 10/28/16 20:59 10/01/16 08:50 Isosorbide Dinitrate (Isordil) 10 mg QID ORAL 09/30/16 18:30 10/30/16 18:29 10/01/16 18:20 Lactulose (Cephulac) 30 gm THREE TIMES A DAY ORAL 10/01/16 18:00 10/31/16 17:59 10/01/16 18:20 Levofloxacin (Levaquin 750mg/ D5W) 150 ml @ 100 mls/hr Q48H IVPB 10/01/16 05:00 10/08/16 04:59 10/01/16 04:07 Methylprednisolone Sodium Succinate (Solu-MEDROL) 40 mg Q12HR IVP 09/30/16 21:00 10/30/16 20:59 10/01/16 08:31 Mineral Oil (Fleet's Mineral Oil Enema) 133 ml EVERY OTHER DAY RECTAL 10/03/16 09:00 11/02/16 08:59 Morphine Sulfate (Morphine Sulfate) 1 mg Q8H PRN IVP Pain 4 - 10 09/29/16 19:00 10/06/16 18:59 10/01/16 18:05 Pantoprazole (Protonix) 40 mg DAILY ORAL 09/29/16 09:00 10/29/16 08:59 10/01/16 08:47 Polyethylene Glycol (Miralax) 17 gm BEDTIME ORAL 10/01/16 21:00 10/31/16 20:59 Sennosides (Senokot) 8.6 mg DAILY ORAL 10/02/16 09:00 11/01/16 08:59 Sitagliptin Phosphate (Januvia) 25 mg ACBREAKFAST ORAL 10/01/16 06:30 10/31/16 06:29 10/01/16 06:12 Sodium Chloride 1,000 ml @ 50 mls/hr Q20H IV 09/29/16 16:30 10/29/16 16:29 10/01/16 08:45 BALBINA JONES Oct 01, 2016 18:27
[2016-10-01 20:00] VITALS: BP 123/72
[2016-10-01] MEDS ORDERED: Miralax 17gm pkt ORAL SCH (21:00)
[2016-10-02] VITALS: BP 122/69
[2016-10-02] MEDS: DuoNeb 0.5-3(2.5)mg/3ml neb HHN SCH ×3 (01:00→13:00)
[2016-10-02] MEDS: Morphine Sulfate 2mg/ml Inj IVP PRN ×2 (03:37→12:13)
[2016-10-02] MEDS: DiphenhydrAMINE 50mg/ml Inj IVP PRN (03:38)
[2016-10-02 04:00] VITALS: BP 138/93
[2016-10-02] MEDS: sitaGLIPtin 25mg tab ORAL SCH (06:40)
[2016-10-02 08:00] VITALS: BP 117/72
[2016-10-02] MEDS: cefTRIAXone 2 GM in NS 110 ML IVPB SCH (08:12)
[2016-10-02] MEDS: Docusate 100mg cap ORAL SCH ×2 (08:19→13:01)
[2016-10-02] MEDS: Lactulose 20gm/30ml UDC ORAL SCH ×2 (08:19→13:00)
[2016-10-02] MEDS: guaiFENesin DM 100mg/5ml ORAL PRN ×2 (08:19→16:51)
[2016-10-02] MEDS: Acetaminophen 500mg (ES) tab ORAL PRN (08:27)
[2016-10-02] MEDS: Heparin 5000 units/ml inj SUBQ SCH (08:29)
[2016-10-02 12:00] VITALS: BP 121/69
--- NOTE | 2016-10-02 12:07 | Infectious Diseases Prog Note ---
Assessment/Plan Assessment/Plan A; Pneumonia s/p Rx Bronchitis s/p RX COPD Acute renal failure DM HPN Cocaine abuse P: Discontinue Rocephin and Levaquin Subjective ROS Limited/Unobtainable: No Constitutional: Reports: other - poor appetite Respiratory: Reports: productive cough Gastrointestinal/Abdominal: Reports: other - lower abdominal pain Allergies: Coded Allergies: CODEINE (Unverified Allergy, Unknown, 09/28/16) Objective Vital Signs Last 24 Hour Vital Signs Date Time Temp Pulse Resp B/P Pulse Ox O2 Delivery O2 Flow Rate FiO2 10/02/16 08:27 117/70 10/02/16 08:00 97.5 74 17 117/72 100 Room Air 10/02/16 07:41 99 Nasal Cannula 2.0 10/02/16 07:40 Nasal Cannula 10/02/16 07:40 Nasal Cannula 10/02/16 07:39 Nasal Cannula 2.0 10/02/16 06:40 64 138/93 10/02/16 04:07 97.9 10/02/16 04:00 97.2 64 18 138/93 98 10/02/16 00:30 Nasal Cannula 10/02/16 00:30 Nasal Cannula 10/02/16 00:00 97.9 71 20 122/69 98 Room Air 10/01/16 22:02 123/72 10/01/16 22:02 72 123/72 10/01/16 20:00 97.7 72 18 123/72 97 Room Air 10/01/16 19:40 79 16 99 Nasal Cannula 2.0 10/01/16 19:31 88 16 99 Nasal Cannula 2.0 10/01/16 19:31 88 16 Nasal Cannula 2.0 10/01/16 18:20 127/68 10/01/16 16:01 97.3 81 19 127/68 97 Room Air 10/01/16 13:41 128/80 10/01/16 13:41 85 128/80 10/01/16 13:32 82 17 99 Nasal Cannula 2.0 10/01/16 13:24 85 17 99 Nasal Cannula 2.0 Height (Feet): 5 Height (Inches): 1.00 Weight (Pounds): 109 General Appearance: no acute distress HEENT: mucous membranes moist Respiratory/Chest: other - few rhonchi Abdomen: soft, non tender Extremities: no edema Neurologic/Psychiatric: alert, oriented x 3, responsive Current Medications Medications (Trade) Dose Ordered Sig/Wilma Route PRN Reason Start Time Stop Time Status Last Admin Dose Admin Acetaminophen (Tylenol) 500 mg Q4H PRN ORAL MILD PAIN/T>100.5 09/28/16 17:00 10/28/16 16:59 10/02/16 08:27 Albuterol/ Ipratropium (DuoNeb 0.5-3(2.5)mg/3ml) 3 ml Q6HRT HHN 09/28/16 19:00 10/03/16 18:59 10/01/16 19:29 Ceftriaxone Sodium/Sodium Chloride (Rocephin/Sodium Chloride) 110 ml @ 220 mls/hr Q24HRS IVPB 09/29/16 08:00 10/06/16 07:59 10/02/16 08:12 Dextrose (Dextrose 50%) STAT PRN IV Hypoglycemia 09/28/16 17:00 10/28/16 16:59 Diltiazem HCl (Cardizem) 30 mg EVERY 8 HOURS ORAL 09/30/16 18:30 10/30/16 18:29 10/02/16 06:40 Diphenhydramine HCl 25 mg 25 mg Q6H PRN IVP Itching 09/29/16 08:30 10/29/16 08:29 10/02/16 03:38 Docusate Sodium (Colace) 100 mg THREE TIMES A DAY ORAL 10/01/16 18:00 10/31/16 17:59 10/02/16 08:19 Guaifenesin/ Dextromethorphan (Robitussin DM) 10 ml Q4H PRN ORAL For Cough 09/30/16 10:47 10/30/16 10:14 10/02/16 08:19 Heparin Sodium (Porcine) (Heparin 5000 units/ml) 5,000 units EVERY 12 HOURS SUBQ 09/28/16 21:00 10/28/16 20:59 10/02/16 08:29 Isosorbide Dinitrate (Isordil) 10 mg QID ORAL 09/30/16 18:30 10/30/16 18:29 10/02/16 08:27 Lactulose (Cephulac) 30 gm THREE TIMES A DAY ORAL 10/01/16 18:00 10/31/16 17:59 10/02/16 08:19 Levofloxacin (Levaquin 750mg/ D5W) 150 ml @ 100 mls/hr Q48H IVPB 10/01/16 05:00 10/08/16 04:59 10/01/16 04:07 Mineral Oil (Fleet's Mineral Oil Enema) 133 ml EVERY OTHER DAY RECTAL 10/03/16 09:00 11/02/16 08:59 Morphine Sulfate (Morphine Sulfate) 1 mg Q8H PRN IVP Pain 4 - 10 09/29/16 19:00 10/06/16 18:59 10/02/16 03:37 Pantoprazole (Protonix) 40 mg DAILY ORAL 09/29/16 09:00 10/29/16 08:59 10/02/16 08:27 Polyethylene Glycol (Miralax) 17 gm BEDTIME ORAL 10/01/16 21:00 10/31/16 20:59 Sennosides (Senokot) 8.6 mg DAILY ORAL 10/02/16 09:00 11/01/16 08:59 10/02/16 08:27 Sitagliptin Phosphate (Januvia) 25 mg ACBREAKFAST ORAL 10/01/16 06:30 10/31/16 06:29 10/02/16 06:40 Sodium Chloride 1,000 ml @ 50 mls/hr Q20H IV 09/29/16 16:30 10/29/16 16:29 10/02/16 03:38 GIO MITCHELL Oct 02, 2016 12:07
--- NOTE | 2016-10-02 14:35 | Nephrology Progress Note ---
Assessment/Plan Problem List: (1) Renal failure (ARF), acute on chronic Assessment: no labs today (2) COPD exacerbation Assessment: still wheezing Plan Await PTH res treatments BMP in AM Subjective Subjective In NAD Objective Objective Last 24 Hour Vital Signs Date Time Temp Pulse Resp B/P Pulse Ox O2 Delivery O2 Flow Rate FiO2 10/02/16 14:00 70 109/75 10/02/16 13:50 Nasal Cannula 10/02/16 13:50 Nasal Cannula 10/02/16 13:01 125/78 10/02/16 12:54 97.9 10/02/16 12:00 97.3 72 18 121/69 98 Room Air 10/02/16 08:27 117/70 10/02/16 08:00 97.5 74 17 117/72 100 Room Air 10/02/16 07:41 99 Nasal Cannula 2.0 10/02/16 07:40 Nasal Cannula 10/02/16 07:40 Nasal Cannula 10/02/16 07:39 Nasal Cannula 2.0 10/02/16 06:40 64 138/93 10/02/16 04:00 97.2 64 18 138/93 98 10/02/16 00:30 Nasal Cannula 10/02/16 00:30 Nasal Cannula 10/02/16 00:00 97.9 71 20 122/69 98 Room Air 10/01/16 22:02 123/72 10/01/16 22:02 72 123/72 10/01/16 20:00 97.7 72 18 123/72 97 Room Air 10/01/16 19:40 79 16 99 Nasal Cannula 2.0 10/01/16 19:31 88 16 99 Nasal Cannula 2.0 10/01/16 19:31 88 16 Nasal Cannula 2.0 28 10/01/16 18:20 127/68 10/01/16 16:01 97.3 81 19 127/68 97 Room Air Intake and Output 10/01/16 10/02/16 19:00 07:00 Intake Total 730 ml 600 ml Balance 730 ml 600 ml Intake Oral 480 ml IV Total 250 ml 600 ml # Voids 2 # Bowel Movements 1 Height (Feet): 5 Height (Inches): 1.00 Weight (Pounds): 109 Cardiovascular: normal rate Respiratory/Chest: expiratory wheezing Extremities: other - no edema SAVANNAH MITCHELL Oct 02, 2016 14:35
[2016-10-02] MEDS ORDERED: LACTULOSE20 GM/301 ORAL (14:40)
[2016-10-02] MEDS ORDERED: CARDIZEM30 MG ORAL (14:40)
[2016-10-02] MEDS ORDERED: ISOSORBIDE DINI10 MG ORAL (14:40)
[2016-10-02] MEDS ORDERED: JANUVIA25 MG ORAL (14:40)
--- NOTE | 2016-10-02 14:47 | General Progress Note ---
Assessment/Plan Status: stable Assessment/Plan ASSESSMENT: 1. Chronic obstructive pulmonary disease exacerbation. 2. Substance abuse. 3. Renal failure (age indeterminate). 4. Hyperkalemia. 5. Abnormal BNP.with Normal EF 6. Gastrointestinal and deep vein thrombosis prophylaxis. PLAN OF CARE: Plan: Pulmonary Nephro ID Notes are reviewed Current management. ok to followup as outpatient Subjective ROS Limited/Unobtainable: No Constitutional: Reports: no symptoms HEENT: Reports: no symptoms Cardiovascular: Reports: no symptoms Respiratory: Reports: no symptoms Allergies: Coded Allergies: CODEINE (Unverified Allergy, Unknown, 09/28/16) Objective Last 24 Hour Vital Signs Date Time Temp Pulse Resp B/P Pulse Ox O2 Delivery O2 Flow Rate FiO2 10/02/16 14:00 70 109/75 10/02/16 13:50 Nasal Cannula 10/02/16 13:50 Nasal Cannula 10/02/16 13:01 125/78 10/02/16 12:54 97.9 10/02/16 12:00 97.3 72 18 121/69 98 Room Air 10/02/16 08:27 117/70 10/02/16 08:00 97.5 74 17 117/72 100 Room Air 10/02/16 07:41 99 Nasal Cannula 2.0 10/02/16 07:40 Nasal Cannula 10/02/16 07:40 Nasal Cannula 10/02/16 07:39 Nasal Cannula 2.0 10/02/16 06:40 64 138/93 10/02/16 04:00 97.2 64 18 138/93 98 10/02/16 00:30 Nasal Cannula 10/02/16 00:30 Nasal Cannula 10/02/16 00:00 97.9 71 20 122/69 98 Room Air 10/01/16 22:02 123/72 10/01/16 22:02 72 123/72 10/01/16 20:00 97.7 72 18 123/72 97 Room Air 10/01/16 19:40 79 16 99 Nasal Cannula 2.0 10/01/16 19:31 88 16 99 Nasal Cannula 2.0 10/01/16 19:31 88 16 Nasal Cannula 2.0 28 10/01/16 18:20 127/68 10/01/16 16:01 97.3 81 19 127/68 97 Room Air Intake and Output 10/01/16 10/02/16 19:00 07:00 Intake Total 730 ml 600 ml Balance 730 ml 600 ml Intake Oral 480 ml IV Total 250 ml 600 ml # Voids 2 # Bowel Movements 1 Height (Feet): 5 Height (Inches): 1.00 Weight (Pounds): 109 General Appearance: no apparent distress EENT: PERRL/EOMI Neck: supple Cardiovascular: normal rate Respiratory/Chest: rhonchi - bilaterally Abdomen: soft Extremities: non-tender 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
[2016-10-02 15:42] LABS: CALCIUM 9.2 mg/dL (8.7-10.2); PTH INTACT 37 pg/mL (15-65)
[2016-10-02 16:00] VITALS: BP 140/71
[2016-10-02] MEDS ORDERED: 1/2 NS 1000ml IV ONE (17:37)
[2016-10-03] MEDS ORDERED: Fleet's Mineral Oil Enema RECTAL SCH (09:00)
--- NOTE | 2016-10-04 00:55 | Cardiology Report ---
APPROVED REPORT EKG Measurement Heart [id number] MI 68P0 [id number] Sinus tachycardia with short MI with frequent premature ventricular complexes Anteroseptal infarct, age undetermined Prolonged QT Abnormal ECG
--- NOTE | 2016-10-04 07:43 | Cardiology Report ---
APPROVED REPORT EXAM: Two-dimensional and M-mode echocardiogram with Doppler and color Doppler. INDICATION Left ventricular function M-Mode DIMENSIONS IVSd0.7 (0.7-1.1cm)Left Atrium (MM)3.8 (1.6-4.0cm) LVDd3.9 (3.5-5.6cm)Aortic Root2.3 (2.0-3.7cm) PWd0.7 (0.7-1.1cm)Aortic Cusp Exc.1.5 (1.5-2.0cm) LVDs2.5 (2.5-4.0cm) PWs0.7 cm Normal left ventricular chamber size, systolic function and wall motion. Left ventricular ejection fraction estimated to be 60-65%. Mild left ventricular hypertrophy. No evidence of pericardial fat or effusion. All other cardiac chamber sizes are within normal limits. Focal aortic valve sclerosis with adequate cusp excursion Thickened mitral valve leaflets with normal excursion. Mitral annulus and aortic root calcification. Pulmonic valve not well visualized. Normal tricuspid valve structure. IVC is normal in size with physiologic collapse. A color flow and spectral Doppler study was performed and revealed: No aortic regurgitation. No mitral regurgitation. Left ventricular diastolic dysfunction grade 1. Mild tricuspid regurgitation. Tricuspid systolic velocities suggests peak right ventricular systolic pressure of 25 mmHg Pulmonic regurgitation present.
[2016-10-04 09:02] LABS: VITAMIN D 25-OH TOTAL 30 ng/mL (.)
--- NOTE | 2016-10-04 13:37 | Discharge Summary ---
Discharge Summary Hospital Course Date of Admission Sep 28, 2016 at 07:45 Date of Discharge Oct 02, 2016 at 17:38 Admitting Diagnosis COPD exacerbation HPI Krysta Brewer is a 61 year old female who was admitted on Sep 28, 2016 at 07:45 for Chronic Obstructive Pulmonary Disease,Exacerbation Hospital Course [id number] Discharge Discharge Disposition Patient was discharged to Home (01) Discharge Diagnoses: Gwen Mir NP Oct 04, 2016 13:37
--- NOTE | 2016-10-05 01:16 | Discharge Summary 2 SIG ---
DATE OF ADMISSION: 09/28/2016 DATE OF DISCHARGE: 10/02/2016 CONSULTANTS: 1. Nacho Roman M.D. 2. Masood Dyson M.D. 3. Edilberto Coleman M.D. BRIEF HOSPITAL COURSE: The patient is a 61-year-old female, who is an active smoker with prior history of chronic obstructive pulmonary disease, presented to ED complaining of worsening shortness of breath for the last couple of days. She also had episodes of cough, but denied any fever or chills. Shortness of breath was worse when walking. On evaluation at ED, laboratories showed leukocytosis. WBC was 15. Urine toxicology was positive for opiates and cocaine. Chest x-ray showed bilateral infiltrates. There was mild elevation of BNP of 364. Creatinine was 3.4 and BUN 35. She was given aggressive breathing treatments and was started on IV Solu-Medrol. She remained hypoxic and was then admitted to telemetry for acute exacerbation of chronic obstructive pulmonary disease. She was followed by Infectious Disease specialist and was given Rocephin and Levaquin. She was pancultured. Blood culture did not isolate any growth. Sputum culture showed yeast with normal upper respiratory linden. Chest x-ray showed interstitial edema. She was given supplemental O2 and bronchodilator treatment. Echocardiogram done showed ejection fraction of 60% to 65% with RVSP of 25. She was seen by Dr. Roman for evaluation of renal failure. She was given cautious intravenous hydration. PTH was 37. Vitamin D 25-hydroxy was 30. Sputum culture was negative. Antibiotics were discontinued. She was also given laxatives for constipation. Potassium was elevated to 5.5, and was given Kayexalate. Steroids were tapered. The patient was eventually discharged home. Advised to follow up as an outpatient. DISPOSITION: The patient was discharged home. Advised to follow up with PCP as an outpatient. FINAL DIAGNOSES: 1. Acute chronic obstructive pulmonary disease exacerbation. 2. Substance abuse. 3. Renal failure (age-indeterminate). 4. Hyperkalemia. 5. Abnormal brain natriuretic peptide with normal ejection fraction. 6. Current smoker. Phyllis Childs M.D. I have been assigned to dictate discharge summary on this account and I was not involved in the patient's management. Gwen Mir N.P. DR: DONN JOB#: [id number] CC:
== END 2016-10-02 17:38 | disposition home or self-care (01) | DRG 140 ==
LOC: EDUNIT# 06:09 → EDBD 06:17 → EMR 07:02 → 2E 07:45 → EDBEDREQ 09:32 → 4E 15:59
DX: J44.1 Chronic obstructive pulmonary disease with (acute) exacerbation (principal); J18.9 Pneumonia, unspecified organism; N17.9 Acute kidney failure, unspecified; E87.5 Hyperkalemia; F17.200 Nicotine dependence, unspecified, uncomplicated; I10 Essential (primary) hypertension; R51 Headache; I12.9 Hypertensive chronic kidney disease with stage 1 through stage 4 chronic kidney disease, or unspecified chronic kidney disease; E11.22 Type 2 diabetes mellitus with diabetic chronic kidney disease; N18.9 Chronic kidney disease, unspecified; F14.10 Cocaine abuse, uncomplicated; F12.10 Cannabis abuse, uncomplicated; Z88.6 Allergy status to analgesic agent; J40 Bronchitis, not specified as acute or chronic; N20.0 Calculus of kidney
CPT/HCPCS: 36415; 71010; 76775; 80053; 80300; 81001; 82306; 82550; 82553; 82962; 83036; 83605; 83735; 83880; 83970; 84100; 84132; 84133; 84300; 84484; 84550; 85007; 85025; 85610; 85730; 87040; 87070; 87205; 89050; 93005; 93306; 94640; 94664; 94760; J2765; J7620

== ENCOUNTER 2017-05-23 13:41 | Emergency (ER) | payer OTHER ==
[~2017-05-23] VITALS: Ht 157.5 cm; Wt 61.2 kg
[~2017-05-23 13:41] MED LIST changes: +ALBUTEROL2.5 MG/3 M INH; +CARDIZEM30 MG ORAL; +ISOSORBIDE DINI10 MG ORAL; +JANUVIA25 MG ORAL; +LACTULOSE20 GM/301 ORAL
--- NOTE | 2017-05-23 14:42 | Emergency Room Report ---
History of Present Illness General Chief Complaint: Alcohol Intoxication Source: Patient, EMS Present Illness HPI 62-year-old female with unknown pmhx p/w alcohol intoxication. Patient admits to drinking alcohol, cannot quantify amount. She is currently ANO 3 however just intoxicated Currently denying any complaints. Denies history of trauma Allergies: Coded Allergies: CODEINE (Unverified Allergy, Unknown, 09/28/16) Patient History Past Medical History: see triage record Past Surgical History: none Pertinent Family History: none Reviewed Nursing Documentation: PMH: Agreed, PSxH: Agreed Nursing Documentation-PMH Past Medical History: No History, Except For Hx Hypertension: Yes Hx Asthma: Yes Hx Diabetes: Yes Hx Cancer: Yes Hx Neurological Problems: No Review of Systems All Other Systems: negative except mentioned in HPI Physical Exam Vital Signs Date Time Temp Pulse Resp B/P (MAP) Pulse Ox O2 Delivery O2 Flow Rate FiO2 05/23/17 13:33 98.7 96 16 147/78 99 Room Air 98.8 Sp02 EP Interpretation: reviewed, normal General Appearance: other - Middle aged female, intoxicated, however arousable and answering questions appropriately when asked, oriented 3 Head: normocephalic - no hematoma/ecchymosis, atraumatic Eyes: bilateral eye normal inspection, bilateral eye PERRL, bilateral eye EOMI ENT: normal ENT inspection, normal pharynx, normal voice, moist mucus membranes Neck: normal inspection, full range of motion, supple Respiratory: normal inspection, lungs clear, normal breath sounds, no respiratory distress, no retraction, no wheezing, speaking full sentences, chest symmetrical Cardiovascular #1: normal inspection, regular rate, rhythm, normal capillary refill Cardiovascular #2: 2+ radial (R), 2+ radial (L) Gastrointestinal: normal inspection, non tender, soft, non-distended, no guarding Musculoskeletal: normal inspection, back normal, normal range of motion, non- tender, other - no signs of trauma Neurologic: alert, oriented x3, responsive, motor strength/tone normal, sensory intact, normal gait, speech normal Psychiatric: other - intox Skin: normal inspection, normal color, no rash, warm/dry, well hydrated, normal turgor Medical Decision Making Diagnostic Impression: Primary Impression: Acute alcoholic intoxication Additional Impression: Cocaine abuse ER Course 62-year-old female with alcohol intoxication DDX: alcohol intoxication No signs of trauma Plan: pending sobriety ER course: Patient has remained stable during ED stay. she slept comfortably Now clinically sober, ambulatory. when patient woke up, walking around ED, yelling at nurses and I saying that no one took her vital signs and no one has been taking care of her patient became very angry/agitated. however aox4, clinically sober. DCed home Disposition: Patient is to be discharged to home. Patient is instructed to follow up with their primary care doctor within 5 days. Please note that this Emergency Department Report was dictated using Bleacher Reportroller cleaner technology software, occasionally this can lead to erroneous entry secondary to interpretation by the dictation equipment Last Vital Signs Date Time Temp Pulse Resp B/P (MAP) Pulse Ox O2 Delivery O2 Flow Rate FiO2 05/23/17 13:33 98.7 96 16 147/78 99 Room Air 98.8 Disposition: HOME, SELF-CARE Condition: Improved Patient Instructions: Alcohol Intoxication Lupe Choudhury M.D. May 23, 2017 14:41
[2017-05-23 14:48] VITALS: BP 147/78
[2017-05-23 16:54] VITALS: BP 141/73
[2017-05-23 18:00] VITALS: BP 141/73
== END 2017-05-23 18:00 | disposition home or self-care (01) ==
LOC: EDBD 13:41 → EMR 14:48
DX: F10.129 Alcohol abuse with intoxication, unspecified (principal); F14.10 Cocaine abuse, uncomplicated; I10 Essential (primary) hypertension; J45.909 Unspecified asthma, uncomplicated; Z88.5 Allergy status to narcotic agent
CPT/HCPCS: 80307; 99285

== ENCOUNTER 2017-05-23 19:16 | Inpatient (IN) | payer OTHER ==
[~2017-05-23] VITALS: Ht 154.9 cm; Wt 55.3 kg
[2017-05-23 19:30] VITALS: BP 167/75
--- NOTE | 2017-05-23 21:06 | Emergency Room Report ---
History of Present Illness General Chief Complaint: General Complaint Source: Patient Present Illness HPI 62-year-old female, history of alcohol abuse, hypertension, presenting with headache and abdominal pain. Patient admits to drinking a lot of alcohol earlier today. He was seen in the emergency room, and discharged when she was sober Patient now returning, states that she has a headache, not on any blood thinners , states that she also has had some nausea and vomiting. Also complaining of some mild abdominal pain. States it is going on for 2-3 days. Admits to drinking alcohol denies any drug use, patient was cocaine positive on previous visit Allergies: Coded Allergies: CODEINE (Unverified Allergy, Unknown, 09/28/16) Patient History Past Medical History: see triage record Past Surgical History: none Pertinent Family History: none Now: No Reviewed Nursing Documentation: PMH: Agreed, PSxH: Agreed Nursing Documentation-PMH Hx Hypertension: Yes Hx Asthma: Yes Hx Diabetes: Yes Hx Cancer: Yes - left breast Hx Neurological Problems: No Review of Systems All Other Systems: negative except mentioned in HPI Physical Exam Vital Signs Date Time Temp Pulse Resp B/P (MAP) Pulse Ox O2 Delivery O2 Flow Rate FiO2 05/23/17 19:08 97.8 88 14 167/75 97 Room Air 97.9 Sp02 EP Interpretation: reviewed, normal General Appearance: alert, GCS 15, non-toxic, mild distress Head: normocephalic - no hematoma/ecchymosis Eyes: bilateral eye normal inspection, bilateral eye PERRL, bilateral eye EOMI ENT: normal ENT inspection, normal pharynx, normal voice, moist mucus membranes Neck: normal inspection, full range of motion, supple Respiratory: normal inspection, lungs clear, normal breath sounds, no respiratory distress, no retraction, no wheezing, speaking full sentences, chest symmetrical Cardiovascular #1: normal inspection, regular rate, rhythm, normal capillary refill Cardiovascular #2: 2+ radial (R), 2+ radial (L) Gastrointestinal: other - nontender abdomen, no guarding or rigdiity, no rebound, no grimace to deep palpation Musculoskeletal: normal inspection, back normal, normal range of motion, non- tender Neurologic: normal inspection, alert, oriented x3, responsive, motor strength/ tone normal, sensory intact, normal gait, speech normal Psychiatric: normal inspection, judgement/insight normal, memory normal Skin: normal inspection, normal color, no rash, warm/dry, well hydrated, normal turgor Medical Decision Making Diagnostic Impression: Primary Impression: Abdominal pain Additional Impressions: Headache Renal failure Alcohol abuse Pelvic mass ER Course 62-year-old female, headache, abdominal pain, was recently here for alcohol intoxication DDX: Abdominal pain: Abdomen is benign, however patient pointing to general abdomen for severe pain. Appendicitis, diverticulitis, gastritis, SBO Headache: Primary headache, migraine, tension, cluster, low suspicion for intracranial bleed Plan: Labs, CT ER course: Patient has remained stable during ED stay. Ambulatory she has been conversing appropriately, non toxic appearing. renal failure noted on labs -- fluids given pt also noted to have pelvic mass on CT but no other acute process abd exam is benign Disposition: Patient is to be admitted to med surg Please note that this Emergency Department Report was dictated using Setredcoin machine service repairer technology software, occasionally this can lead to erroneous entry secondary to interpretation by the dictation equipment Laboratory Tests Test 05/23/17 21:20 05/23/17 21:30 White Blood Count 14.9 K/UL (4.8-10.8) H Red Blood Count 4.74 M/UL (4.20-5.40) Hemoglobin 15.0 G/DL (12.0-16.0) Hematocrit 45.9 % (37.0-47.0) Mean Corpuscular Volume 97 FL (80-99) Mean Corpuscular Hemoglobin 31.7 PG (27.0-31.0) H Mean Corpuscular Hemoglobin Concent 32.7 G/DL (32.0-36.0) Red Cell Distribution Width 12.7 % (11.6-14.8) Platelet Count 289 K/UL (150-450) Mean Platelet Volume 7.3 FL (6.5-10.1) Neutrophils (%) (Auto) 58.5 % (45.0-75.0) Lymphocytes (%) (Auto) 32.8 % (20.0-45.0) Monocytes (%) (Auto) 5.7 % (1.0-10.0) Eosinophils (%) (Auto) 1.6 % (0.0-3.0) Basophils (%) (Auto) 1.4 % (0.0-2.0) Sodium Level 142 MMOL/L (136-145) Potassium Level 5.1 MMOL/L (3.5-5.1) Chloride Level 106 MMOL/L (98-107) Carbon Dioxide Level 23 MMOL/L (21-32) Anion Gap 13 mmol/L (5-15) Blood Urea Nitrogen 61 mg/dL (7-18) H Creatinine 4.6 MG/DL (0.55-1.30) H Estimate Glomerular Filtration Rate 11.8 mL/min (>60) Glucose Level 70 MG/DL (74-106) L Calcium Level 9.7 MG/DL (8.5-10.1) Total Bilirubin 0.8 MG/DL (0.2-1.0) Aspartate Amino Transferase (AST) 28 U/L (15-37) Alanine Aminotransferase (ALT) 29 U/L (12-78) Alkaline Phosphatase 86 U/L (46-116) Total Protein 8.7 G/DL (6.4-8.2) H Albumin 4.2 G/DL (3.4-5.0) Globulin 4.5 g/dL Albumin/Globulin Ratio 0.9 (1.0-2.7) L Lipase 126 U/L (73-393) Urine Color Pale yellow Urine Appearance Clear Urine pH 6 (4.5-8.0) Urine Specific Barry 1.015 (1.005-1.035) Urine Protein 3+ (NEGATIVE) H Urine Glucose (UA) Negative (NEGATIVE) Urine Ketones Negative (NEGATIVE) Urine Occult Blood 3+ (NEGATIVE) H Urine Nitrite Negative (NEGATIVE) Urine Bilirubin Negative (NEGATIVE) Urine Urobilinogen Normal MG/DL (0.0-1.0) Urine Leukocyte Esterase Negative (NEGATIVE) Urine RBC 0-2 /HPF (0 - 2) Urine WBC 0-2 /HPF (0 - 2) Urine Squamous Epithelial Cells Few /LPF (NONE/OCC) Urine Bacteria None /HPF (NONE) CT/MRI/US Diagnostic Results CT/MRI/US Diagnostic Results : Imaging Test Ordered: CT head, abdo pelvis Impression CT HEAD: No acute intracranial process. CT ABDOMEN & PELVIS Without Contrast: 8 cm right pelvic cystic mass lesion, probably adnexal in origin. Unremarkable appendix. No colitis. No radiodense gallstones or pancreatitis. Small radiodensities in left kidney. Right renal scarring. Last Vital Signs Date Time Temp Pulse Resp B/P (MAP) Pulse Ox O2 Delivery O2 Flow Rate FiO2 05/23/17 19:08 97.8 88 14 167/75 97 Room Air 97.9 Disposition: ADMITTED INPATIENT Condition: Lupe Keyes M.D. May 23, 2017 21:05
[2017-05-23 21:51] LABS: BASOPHILS % (AUTO) 1.4 % (0.0-2.0); EOSINOPHILS % (AUTO) 1.6 % (0.0-3.0); HEMATOCRIT 45.9 % (37.0-47.0); LYMPHOCYTES % (AUTO) 32.8 % (20.0-45.0); MEAN CORPUSCULAR VOLUME 97 FL (80-99); MONOCYTES % (AUTO) 5.7 % (1.0-10.0); NEUTROPHILS % (AUTO) 58.5 % (45.0-75.0); PLATELET COUNT 289 K/UL (150-450); RED BLOOD COUNT 4.74 M/UL (4.20-5.40); RED CELL DISTRIBUTION WIDTH 12.7 % (11.6-14.8); WHITE BLOOD COUNT 14.9 K/UL (4.8-10.8)
[2017-05-23 21:51] LABS: APPEARANCE,URINE CLEAR; BILIRUBIN, URINE NEGATIVE (NEGATIVE); COLOR,URINE PALE YELLOW; GLUCOSE, URINE (UA) NEGATIVE (NEGATIVE); KETONES,URINE NEGATIVE (NEGATIVE); LEUKOCYTE ESTERASE ,URINE NEGATIVE (NEGATIVE); NITRITE,URINE NEGATIVE (NEGATIVE); PH,URINE 6 (4.5-8.0); PROTEIN,URINE 3+ (NEGATIVE); UROBILINOGEN,URINE NORMAL MG/DL (0.0-1.0)
[2017-05-23 21:59] LABS: ANION GAP 13 mmol/L (5-15); BLOOD UREA NITROGEN 61 mg/dL (7-18); CALCIUM 9.7 MG/DL (8.5-10.1); CARBON DIOXIDE 23 MMOL/L (21-32); CHLORIDE 106 MMOL/L (98-107); CREATININE 4.6 MG/DL (0.55-1.30); POTASSIUM 5.1 MMOL/L (3.5-5.1); SODIUM 142 MMOL/L (136-145)
[2017-05-23 22:04] LABS: ALANINE AMINOTRANSFERASE 29 U/L (12-78); ALBUMIN 4.2 G/DL (3.4-5.0); ALBUMIN/GLOBULIN RATIO 0.9 (1.0-2.7); ALKALINE PHOSPHATASE 86 U/L (46-116); ASPARTATE AMINO TRANSFERASE 28 U/L (15-37); BILIRUBIN,TOTAL 0.8 MG/DL (0.2-1.0)
[2017-05-23 23:30] VITALS: BP 149/77
[2017-05-24] MEDS ORDERED: Thiamine 100mg tab ORAL ONE (01:15)
[2017-05-24 01:39] VITALS: BP 161/61
[2017-05-24 02:15] VITALS: BP 140/71
[2017-05-24] MEDS: traMADol 50mg tab ORAL PRN (03:00)
[2017-05-24] MEDS: Hydromorphone 0.5mg/0.5ml inj IVP PRN ×3 (06:44→21:48)
[2017-05-24 08:00] VITALS: BP 116/69
--- NOTE | 2017-05-24 08:30 | Diagnostic Imaging Report ---
Indication: Headache Technique: Continuous helical CT scanning of the head was performed without intravenous contrast material. Axial and coronal 5 mm sections were generated. Radiation dose was minimized using automated exposure control Dose: Total Dose Length Product - DLP 1333.[address] Dose Index - CTDIvol(s) 70.38 mGy. Comparison: none Findings: The ventricular system is normal in size and configuration. There is no shift of midline structures. No abnormal extra-axial fluid collections are noted. There is no evidence of intracerebral bleeding. No other abnormal high or low density areas are noted within the brain. Intact calvarium. Visualized orbits and sinuses are unremarkable Impression: Normal CT scan of the head without contrast material. This agrees with the preliminary interpretation provided overnight by [facility] teleradiology service. The CT scanner at [facility] is accredited by the [place] [employer] and the scans are performed using protocols designed to limit radiation exposure to as low as reasonably achievable to attain images of sufficient resolution adequate for diagnostic evaluation.
--- NOTE | 2017-05-24 08:37 | Diagnostic Imaging Report ---
Indication: Abdominal pain Technique: Spiral acquisitions obtained through the abdomen and pelvis. No oral contrast utilized, per emergency room physician request No IV contrast utilized, per referring physician request.. Multiplanar reconstructions were generated. Total dose length product 518.88 mGycm. CTDIvol(s) 10.99 mGy. Dose reduction achieved using automated exposure control Comparison: 08/25/2014 Findings: Appendix is normal. No evidence of diverticulosis or diverticulitis. No small bowel distention. No free or loculated peritoneal air or fluid is evident. Distal esophagus, stomach, duodenum are unremarkable. Lack of IV contrast limits assessment of solid organs. The liver, gallbladder, bile ducts, pancreas, spleen, adrenals are unremarkable. Small calcifications are seen in the lower pole of the left kidney, also evident previously. Uncertain as to whether parenchymal or within the collecting system. No ureteral calculi, hydronephrosis, or hydroureter. Equivocal tiny punctate calcifications are seen in the right upper pole. There are subcentimeter low-attenuation lesions, subtle, in the lower pole left kidney, which are too small to characterize. No retroperitoneal or mesenteric mass or adenopathy. The bladder is unremarkable. There is a 7 cm thin-walled unilocular cystic mass in the right adnexal region. This has increased in size from prior exam The included lung bases demonstrate minimal atelectasis or scarring bilaterally. There is bullous change at the left lateral lung base. There is a 3 mm noncalcified nodule at the left lung base, image 6 series 5. The bones demonstrate degenerative spondylosis changes. Impression: No acute abnormality 7 cm unilocular thin-walled cystic mass in the right adnexal region. Enlarged since prior study of 08/25/2014. Gynecological evaluation is recommended Bilateral renal calcifications, calyceal versus parenchymal, also evident previously. No evidence of obstructive uropathy This agrees with the preliminary interpretation provided overnight by [facility] teleradiology service. The CT scanner at [facility] is accredited by the [employer] and the scans are performed using protocols designed to limit radiation exposure to as low as reasonably achievable to attain images of sufficient resolution adequate for diagnostic evaluation.
--- NOTE | 2017-05-24 11:55 | History and Physical ---
History of Present Illness General Date patient seen: May 24, 2017 Reason for Hospitalization: abdominal pain, headache Present Illness HPI 62 y/o female with a PMH of CKD, alcohol abuse, illicit drug abuse, HTN, T2DM, and breast cancer s/p left lumpectomy presented with 2-3 days of severe abdominal pain and headaches. Reports band-like headache with 5/10 pain. Also reports generalized abdominal pain with increased pain to RLQ. Patient also reports nausea and vomiting that were with bright red blood x 3. Today, she reports emesis x 1 that was NBNB. Patient denies eating red-colored foods yesterday. Patient admits to drinking yesterday. Denies fevers or chills. Denies chest pain, sob, myalgias. Denies diarrhea or constipation. CT a/p was done in the ED which showed a 3 mm lung nodule in the left lateral lung base as well as a right 7 mm cystic mass lesion that is likely of adnexal origin. Allergies: Coded Allergies: CODEINE (Unverified Allergy, Unknown, 09/28/16) Medication History Scheduled Diltiazem HCl (Diltiazem 12Hr ER), 30 MG ORAL EVERY 8 HOURS Docusate Sodium* (Colace*), 100 MG ORAL THREE TIMES A DAY Isosorbide Dinitrate* (Isordil*), 10 MG ORAL QID Lactulose (Lactulose*), 30 GM ORAL THREE TIMES A DAY No Known Medications* (NKM - No Known Medications*), 0 ., (Reported) Sitagliptin* (Januvia*), 25 MG ORAL ACBREAKFAST Scheduled PRN Albuterol Sulfate* (Albuterol Sulfate Hhn*), 3 ML INH NEEDED PRN for Shortness of Breath, (Reported) Tramadol Hcl* (Ultram*), 50 MG ORAL Q6H PRN for For Pain Patient History History Provided By: Patient Healthcare decision maker Resuscitation status Full Code Advanced Directive on File No Review of Systems All Other Systems: negative except mentioned in HPI Physical Exam General Appearance: no apparent distress, alert HEENT: normocephalic, atraumatic Respiratory/Chest: chest wall non-tender, lungs clear, normal breath sounds Cardiovascular/Chest: normal peripheral pulses, normal rate, regular rhythm Abdomen: normal bowel sounds, soft, tender Extremities: normal range of motion, non-tender Skin Exam: normal pigmentation, warm/dry Neurologic: cardiac cath lab technologist II-XII grossly normal, no motor/sensory deficits, alert, oriented x 3 Last 24 Hour Vital Signs Date Time Temp Pulse Resp B/P (MAP) Pulse Ox O2 Delivery O2 Flow Rate FiO2 05/24/17 04:00 Room Air 05/24/17 02:15 98.2 97 18 140/71 98 Room Air 98.2 05/24/17 02:00 99.1 112 14 161/61 96 Room Air 99.1 05/24/17 01:39 99.1 112 14 161/61 96 Room Air 99.1 05/23/17 23:30 97.9 94 16 149/77 97 Room Air 97.9 05/23/17 19:30 97.9 87 14 167/75 97 Room Air 97.9 05/23/17 19:08 97.8 88 14 167/75 97 Room Air 97.9 Intake and Output 05/23/17 05/24/17 18:59 06:59 Intake Total 300 ml Balance 300 ml Intake IV Total 300 ml # Voids 5 # Bowel Movements 3 Laboratory Tests Test 05/23/17 21:20 05/23/17 21:30 White Blood Count 14.9 K/UL (4.8-10.8) H Red Blood Count 4.74 M/UL (4.20-5.40) Hemoglobin 15.0 G/DL (12.0-16.0) Hematocrit 45.9 % (37.0-47.0) Mean Corpuscular Volume 97 FL (80-99) Mean Corpuscular Hemoglobin 31.7 PG (27.0-31.0) H Mean Corpuscular Hemoglobin Concent 32.7 G/DL (32.0-36.0) Red Cell Distribution Width 12.7 % (11.6-14.8) Platelet Count 289 K/UL (150-450) Mean Platelet Volume 7.3 FL (6.5-10.1) Neutrophils (%) (Auto) 58.5 % (45.0-75.0) Lymphocytes (%) (Auto) 32.8 % (20.0-45.0) Monocytes (%) (Auto) 5.7 % (1.0-10.0) Eosinophils (%) (Auto) 1.6 % (0.0-3.0) Basophils (%) (Auto) 1.4 % (0.0-2.0) Sodium Level 142 MMOL/L (136-145) Potassium Level 5.1 MMOL/L (3.5-5.1) Chloride Level 106 MMOL/L (98-107) Carbon Dioxide Level 23 MMOL/L (21-32) Anion Gap 13 mmol/L (5-15) Blood Urea Nitrogen 61 mg/dL (7-18) H Creatinine 4.6 MG/DL (0.55-1.30) H Estimat Glomerular Filtration Rate 11.8 mL/min (>60) Glucose Level 70 MG/DL (74-106) L Calcium Level 9.7 MG/DL (8.5-10.1) Total Bilirubin 0.8 MG/DL (0.2-1.0) Aspartate Amino Transf (AST/SGOT) 28 U/L (15-37) Alanine Aminotransferase (ALT/SGPT) 29 U/L (12-78) Alkaline Phosphatase 86 U/L (46-116) Total Protein 8.7 G/DL (6.4-8.2) H Albumin 4.2 G/DL (3.4-5.0) Globulin 4.5 g/dL Albumin/Globulin Ratio 0.9 (1.0-2.7) L Lipase 126 U/L (73-393) Urine Color Pale yellow Urine Appearance Clear Urine pH 6 (4.5-8.0) Urine Specific [place] 1.015 (1.005-1.035) Urine Protein 3+ (NEGATIVE) H Urine Glucose (UA) Negative (NEGATIVE) Urine Ketones Negative (NEGATIVE) Urine Occult Blood 3+ (NEGATIVE) H Urine Nitrite Negative (NEGATIVE) Urine Bilirubin Negative (NEGATIVE) Urine Urobilinogen Normal MG/DL (0.0-1.0) Urine Leukocyte Esterase Negative (NEGATIVE) Urine RBC 0-2 /HPF (0 - 2) Urine WBC 0-2 /HPF (0 - 2) Urine Squamous Epithelial Cells Few /LPF (NONE/OCC) Urine Bacteria None /HPF (NONE) Height (Feet): 5 Height (Inches): 1.00 Weight (Pounds): 122 Medications Current Medications Medications (Trade) Dose Ordered Sig/Wilma Route PRN Reason Start Time Stop Time Status Last Admin Dose Admin Dextrose (Dextrose 50%) STAT PRN IV Hypoglycemia 05/24/17 01:15 06/23/17 01:14 Folic Acid (Folate) 1 mg DAILY ORAL 05/24/17 09:00 06/23/17 08:59 05/24/17 08:53 Hydromorphone HCl (Dilaudid) 0.5 mg EVERY 3 HOURS PRN IVP For Pain 05/24/17 06:30 05/31/17 06:29 05/24/17 06:44 Insulin Aspart (NovoLOG) BEFORE MEALS AND HS SUBQ 05/24/17 16:30 06/23/17 16:29 Multivitamins (Multivitamins) 1 tab DAILY ORAL 05/24/17 09:00 06/23/17 08:59 05/24/17 08:54 Sodium Chloride 1,000 ml @ 100 mls/hr Q10H IVLG 05/24/17 02:07 06/23/17 02:06 05/24/17 02:31 Tramadol HCl (Ultram) 50 mg Q6H PRN ORAL For Pain 05/24/17 02:30 05/31/17 02:29 05/24/17 03:00 Assessment/Plan Problem List: (1) Hematemesis ICD Codes: K92.0 - Hematemesis SNOMED: 2636569 (2) Lung nodule < 6cm on CT ICD Codes: R91.1 - Solitary pulmonary nodule SNOMED: 224018956, 133952851 (3) Asthma ICD Codes: J45.909 - Unspecified asthma, uncomplicated SNOMED: 239481791 (4) H/O malignant neoplasm of breast ICD Codes: Z85.3 - Personal history of malignant neoplasm of breast SNOMED: 003297022 (5) Hypertension ICD Codes: I10 - Essential (primary) hypertension SNOMED: 63423707 (6) Diabetes ICD Codes: E11.9 - Type 2 diabetes mellitus without complications SNOMED: 81565641 (7) Abdominal pain ICD Codes: R10.9 - Unspecified abdominal pain SNOMED: 72935261 (8) Chronic kidney disease ICD Codes: N18.9 - Chronic kidney disease, unspecified SNOMED: 674705790 (9) Pelvic mass ICD Codes: R19.00 - Intra-abdominal and pelvic swelling, mass and lump, unspecified site SNOMED: 65997374 (10) Headache ICD Codes: R51 - Headache SNOMED: 59503444 (11) Alcohol abuse ICD Codes: F10.10 - Alcohol abuse, uncomplicated SNOMED: 83617548 (12) Constipation ICD Codes: K59.00 - Constipation, unspecified SNOMED: 46416088 (13) Leukocytosis ICD Codes: D72.829 - Elevated white blood cell count, unspecified SNOMED: 938965551, 193081100 Status: stable Assessment/Plan - Admit to inpatient - General surgery, renal, GI, and [employer] consulted - CLD, ADAT - check UA and CXR - monitor leuks - monitor H/H and transfuse prn Hgb < 7 - monitor Cr. Avoid nephrotoxic meds - check renal ultrasound - PPi 40mg IV BID - continue home albuterol and BP meds - SSi. Monitor blood sugars - check A1c, CBC, CMP - multivitamin, folate, thiamine daily - antiemetics prn - pain control and supportive care - f/u with repeat CT chest in 3-6 months given 3mm left lateral lung base Mirela Ward N.P. May 24, 2017 11:55
[2017-05-24 12:00] VITALS: BP 96/57
--- NOTE | 2017-05-24 13:34 | Consultation ---
History of Present Illness General Date patient seen: May 24, 2017 Chief Complaint: General Complaint Reason for Consultation: abdominal pain Present Illness HPI 62 y/o female with a PMH of CKD, alcohol abuse, illicit drug abuse, HTN, T2DM, and breast cancer s/p left lumpectomy presented with 2-3 days of severe abdominal pain and headaches. States has had abdominal pain for weeks now but in past few days has become worse. pain in lower abdomen but more in right lower quadrant. some discomfort in pelvis and left lower quadrant. pain cramping 5/10 without radiation. intermittent nausea and had episodes of non bloody emesis yesterday. no fever or chills. has noted generalized headache as well for a day or two. has had normal BM's but noted some blood on toilet tissue. has had prior colonoscopy and endoscopy but cannot recall when or findings. surgery called to evaluate abdominal pain. patient seen, examined, chart reviewed. Allergies: Coded Allergies: CODEINE (Unverified Allergy, Unknown, 09/28/16) Medication History Scheduled Diltiazem HCl (Diltiazem 12Hr ER), 30 MG ORAL EVERY 8 HOURS Docusate Sodium* (Colace*), 100 MG ORAL THREE TIMES A DAY Isosorbide Dinitrate* (Isordil*), 10 MG ORAL QID Lactulose (Lactulose*), 30 GM ORAL THREE TIMES A DAY No Known Medications* (NKM - No Known Medications*), 0 ., (Reported) Sitagliptin* (Januvia*), 25 MG ORAL ACBREAKFAST Scheduled PRN Albuterol Sulfate* (Albuterol Sulfate Hhn*), 3 ML INH NEEDED PRN for Shortness of Breath, (Reported) Tramadol Hcl* (Ultram*), 50 MG ORAL Q6H PRN for For Pain Patient History History Provided By: Patient, Medical Record Healthcare decision maker Resuscitation status Full Code Advanced Directive on File No Past Medical/Surgical History Past Medical/Surgical History: (1) COPD (chronic obstructive pulmonary disease) (2) Chronic kidney disease (3) Cardiomegaly (4) COPD exacerbation (5) Alcohol abuse (6) Headache (7) Renal failure (8) Hematemesis (9) Constipation (10) Diabetes (11) Pelvic mass (12) Abdominal pain (13) Hypertension (14) Asthma (15) Chronic kidney disease (16) H/O malignant neoplasm of breast (17) Lung nodule < 6cm on CT (18) Leukocytosis Review of Systems Constitutional: Denies: no symptoms, see HPI, chills, sweats, fever, malaise, weakness, other Eye: Denies: no symptoms, see HPI, eye pain, blurred vision, tearing, double vision, nose pain, nose congestion, acuity changes, discharge, other ENT: Denies: no symptoms, see HPI, ear pain, ear discharge, nose pain, nose congestion, throat pain, throat swelling, mouth pain, hearing loss, nasal discharge, other Respiratory: Denies: no symptoms, see HPI, cough, orthopnea, shortness of breath, stridor, wheezing, LEPE, sputum, other Cardiovascular: Denies: no symptoms, see HPI, chest pain, edema, palpitations, syncope, PND, other Gastrointestinal: Reports: abdominal pain, nausea, vomiting Genitourinary: Denies: no symptoms, see HPI, discharge, dysuria, frequency, hematuria, pain, retention, incontinence, urgency, vag bleed/dc, other Musculoskeletal: Denies: no symptoms, see HPI, back pain, gout, joint pain, joint swelling, muscle pain, muscle stiffness, other Skin: Denies: no symptoms, see HPI, rash, change in color, change in hair/nails , dryness, lesions, other Psychiatric: Denies: no symptoms, see HPI, prior hx, anxiety, depressed feelings, emotional problems, SI, HI, hallucinations, other Neurological: Reports: headache Endocrine: Denies: no symptoms, see HPI, excessive sweating, flushing, intolerance to temperature, increased thirst, increased urine, unexplained weight loss, other Hematologic/Lymphatic: Denies: no symptoms, see HPI, anemia, blood clots, easy bleeding, easy bruising, swollen glands, diathesis, other All Other Systems: negative except mentioned in HPI Physical Exam General Appearance: no apparent distress, alert Lines, tubes and drains: peripheral HEENT: normocephalic, mucous membranes moist, PERRL Neck: normal alignment, supple Respiratory/Chest: lungs clear, normal breath sounds, no respiratory distress, no accessory muscle use Cardiovascular/Chest: normal peripheral pulses, normal rate Abdomen: non tender, soft, no organomegaly, no mass, other - discomfort in RLQ. no rebound, no guarding Extremities: normal range of motion, non-tender, normal inspection Skin Exam: normal pigmentation, warm/dry Neurologic: alert, oriented x 3, responsive Last 24 Hour Vital Signs Date Time Temp Pulse Resp B/P (MAP) Pulse Ox O2 Delivery O2 Flow Rate FiO2 05/24/17 04:00 Room Air 05/24/17 02:15 98.2 97 18 140/71 98 Room Air 98.2 05/24/17 02:00 99.1 112 14 161/61 96 Room Air 99.1 05/24/17 01:39 99.1 112 14 161/61 96 Room Air 99.1 05/23/17 23:30 97.9 94 16 149/77 97 Room Air 97.9 05/23/17 19:30 97.9 87 14 167/75 97 Room Air 97.9 05/23/17 19:08 97.8 88 14 167/75 97 Room Air 97.9 Intake and Output 05/23/17 05/24/17 19:00 07:00 Intake Total 300 ml Balance 300 ml Intake IV Total 300 ml # Voids 5 # Bowel Movements 3 Laboratory Tests Test 05/23/17 21:20 05/23/17 21:30 White Blood Count 14.9 K/UL (4.8-10.8) H Red Blood Count 4.74 M/UL (4.20-5.40) Hemoglobin 15.0 G/DL (12.0-16.0) Hematocrit 45.9 % (37.0-47.0) Mean Corpuscular Volume 97 FL (80-99) Mean Corpuscular Hemoglobin 31.7 PG (27.0-31.0) H Mean Corpuscular Hemoglobin Concent 32.7 G/DL (32.0-36.0) Red Cell Distribution Width 12.7 % (11.6-14.8) Platelet Count 289 K/UL (150-450) Mean Platelet Volume 7.3 FL (6.5-10.1) Neutrophils (%) (Auto) 58.5 % (45.0-75.0) Lymphocytes (%) (Auto) 32.8 % (20.0-45.0) Monocytes (%) (Auto) 5.7 % (1.0-10.0) Eosinophils (%) (Auto) 1.6 % (0.0-3.0) Basophils (%) (Auto) 1.4 % (0.0-2.0) Sodium Level 142 MMOL/L (136-145) Potassium Level 5.1 MMOL/L (3.5-5.1) Chloride Level 106 MMOL/L (98-107) Carbon Dioxide Level 23 MMOL/L (21-32) Anion Gap 13 mmol/L (5-15) Blood Urea Nitrogen 61 mg/dL (7-18) H Creatinine 4.6 MG/DL (0.55-1.30) H Estimat Glomerular Filtration Rate 11.8 mL/min (>60) Glucose Level 70 MG/DL (74-106) L Calcium Level 9.7 MG/DL (8.5-10.1) Total Bilirubin 0.8 MG/DL (0.2-1.0) Aspartate Amino Transf (AST/SGOT) 28 U/L (15-37) Alanine Aminotransferase (ALT/SGPT) 29 U/L (12-78) Alkaline Phosphatase 86 U/L (46-116) Total Protein 8.7 G/DL (6.4-8.2) H Albumin 4.2 G/DL (3.4-5.0) Globulin 4.5 g/dL Albumin/Globulin Ratio 0.9 (1.0-2.7) L Lipase 126 U/L (73-393) Urine Color Pale yellow Urine Appearance Clear Urine pH 6 (4.5-8.0) Urine Specific [place] 1.015 (1.005-1.035) Urine Protein 3+ (NEGATIVE) H Urine Glucose (UA) Negative (NEGATIVE) Urine Ketones Negative (NEGATIVE) Urine Occult Blood 3+ (NEGATIVE) H Urine Nitrite Negative (NEGATIVE) Urine Bilirubin Negative (NEGATIVE) Urine Urobilinogen Normal MG/DL (0.0-1.0) Urine Leukocyte Esterase Negative (NEGATIVE) Urine RBC 0-2 /HPF (0 - 2) Urine WBC 0-2 /HPF (0 - 2) Urine Squamous Epithelial Cells Few /LPF (NONE/OCC) Urine Bacteria None /HPF (NONE) Height (Feet): 5 Height (Inches): 1.00 Weight (Pounds): 122 Medications Current Medications Medications (Trade) Dose Ordered Sig/Wilma Route PRN Reason Start Time Stop Time Status Last Admin Dose Admin Acetaminophen (Tylenol) 650 mg Q6H PRN ORAL Mild Pain/Temp > 100.5 05/24/17 12:30 06/23/17 12:29 Dextrose (Dextrose 50%) STAT PRN IV Hypoglycemia 05/24/17 01:15 06/23/17 01:14 Folic Acid (Folate) 1 mg DAILY ORAL 05/24/17 09:00 06/23/17 08:59 05/24/17 08:53 Hydromorphone HCl (Dilaudid) 0.5 mg EVERY 3 HOURS PRN IVP For Pain 05/24/17 06:30 05/31/17 06:29 05/24/17 06:44 Insulin Aspart (NovoLOG) BEFORE MEALS AND HS SUBQ 05/24/17 16:30 06/23/17 16:29 Multivitamins (Multivitamins) 1 tab DAILY ORAL 05/24/17 09:00 06/23/17 08:59 05/24/17 08:54 Ondansetron HCl (Zofran) 4 mg Q6H PRN IVP Nausea & Vomiting 05/24/17 12:15 06/23/17 12:14 Pantoprazole (Protonix) 40 mg EVERY 12 HOURS IVP 05/24/17 21:00 06/23/17 20:59 Sodium Chloride 1,000 ml @ 100 mls/hr Q10H IVLG 05/24/17 02:07 06/23/17 02:06 05/24/17 12:11 Tramadol HCl (Ultram) 50 mg Q6H PRN ORAL For Pain 05/24/17 02:30 05/31/17 02:29 05/24/17 03:00 Assessment/Plan Problem List: (1) Abdominal pain Assessment & Plan: 62F with complaints as noted in HPI. on exam abdomen fairly benign but does complain of lower abdominal pain R>L. CT reviewed and has large unilocular right ovarian cyst/mass. bowel and remainder of abdomen otherwise okay. of note, ovarian pathology larger now than on prior images. -no acute surgical intervention necessary -would recommend ASSISTANT PROFESSOR OF RELIGION evaluation given large unilateral ovarian pathology in post menopausal female. -okay for diet from surgical standpoint -thank you for this consultation and allowing me to participate in [facility]. ICD Codes: R10.9 - Unspecified abdominal pain SNOMED: 14800265 Qualifiers: Qualified Codes: R10.30 - Lower abdominal pain, unspecified Status: stable Ramesh Sams May 24, 2017 13:34
[2017-05-24 14:02] LABS: BASOPHILS % (AUTO) 1.2 % (0.0-2.0); EOSINOPHILS % (AUTO) 4.3 % (0.0-3.0); HEMATOCRIT 33.4 % (37.0-47.0); HEMOGLOBIN 10.8 G/DL (12.0-16.0); LYMPHOCYTES % (AUTO) 41.4 % (20.0-45.0); MEAN CORPUSCULAR VOLUME 98 FL (80-99); MONOCYTES % (AUTO) 7.5 % (1.0-10.0); NEUTROPHILS % (AUTO) 45.6 % (45.0-75.0); PLATELET COUNT 198 K/UL (150-450); RED BLOOD COUNT 3.42 M/UL (4.20-5.40); RED CELL DISTRIBUTION WIDTH 13.1 % (11.6-14.8); WHITE BLOOD COUNT 12.4 K/UL (4.8-10.8)
[2017-05-24 14:08] LABS: ANION GAP 9 mmol/L (5-15); BLOOD UREA NITROGEN 47 mg/dL (7-18); CARBON DIOXIDE 22 MMOL/L (21-32); CHLORIDE 110 MMOL/L (98-107); CREATININE 3.3 MG/DL (0.55-1.30); POTASSIUM 4.3 MMOL/L (3.5-5.1); SODIUM 141 MMOL/L (136-145)
[2017-05-24 14:13] LABS: ALANINE AMINOTRANSFERASE 22 U/L (12-78); ALBUMIN 2.9 G/DL (3.4-5.0); ALBUMIN/GLOBULIN RATIO 0.9 (1.0-2.7); ALKALINE PHOSPHATASE 58 U/L (46-116); ASPARTATE AMINO TRANSFERASE 19 U/L (15-37); BILIRUBIN,TOTAL 0.7 MG/DL (0.2-1.0)
--- NOTE | 2017-05-24 14:56 | Diagnostic Imaging Report ---
Indication: Chest pain Technique: One view of the chest Comparison: 10/01/2016 Findings: Lungs and pleural spaces are clear. The heart size is normal. There are left axillary surgical clips. Previously demonstrated mild interstitial congestion is no longer evident Impression: No acute process
--- NOTE | 2017-05-24 15:20 | Consultation ---
Consult Note Consult Note asked to eval for renal failure- 62-year-old female, history of alcohol abuse, hypertension, presenting with headache and abdominal pain. Patient admits to drinking a lot of alcohol earlier today. He was seen in the emergency room, and discharged when she was sober Patient now returning, states that she has a headache, not on any blood thinners , states that she also has had some nausea and vomiting. Also complaining of some mild abdominal pain. States it is going on for 2-3 days. Admits to drinking alcohol denies any drug use, patient was cocaine positive on previous visit CODEINE (Unverified Allergy, Unknown, 09/28/16) Hx Hypertension: Yes Hx Asthma: Yes Hx Diabetes: Yes Hx Cancer: Yes - left breast examined- data reviewed Cr 4.6 HgbA1c 7.1 Assessment/Plan Acute renal failure- ? CKD DM ? Nephropathy HTN lung nodule on CT Pelvic mass ? Ovarian Anemia h/o Breast Ca Alcohol Abuse Hydrate Anemia dougherty [employer] eval Avoid Nephrotoxics Keep BP and BS in check per orders CARMENZA SOSA May 24, 2017 15:20
[2017-05-24] MEDS: Thiamine 100mg tab ORAL SCH ×2 (15:30→16:00)
--- NOTE | 2017-05-24 15:35 | GI Initial Consult Note ---
History of Present Illness General Date patient seen: May 24, 2017 Time patient seen: 15:24 Reason for Hospitalization: General Complaint Referring physician: MICHELLE AREVALO Reason for Consultation: HEMATAEMESIS Present Illness HPI 62-year-old female, history of alcohol abuse, hypertension, presenting with headache and abdominal pain. Patient admits to drinking a lot of alcohol earlier today. He was seen in the emergency room, and discharged when she was sober Patient now returning, states that she has a headache, not on any blood thinners , states that she also has had some nausea and vomiting. Also complaining of some mild abdominal pain. States it is going on for 2-3 days. Admits to drinking alcohol denies any drug use, patient was cocaine positive on previous visit GI consulted for reported hematemesis. Pt seen, awake A&Ox4 NAD with no active s/sx of N/V/D. Pt reported multiple episodes of hematemesis after about a bottle of ETOH. She has none reported since, and no reported episodes since admission. Abdomen is soft, non distender, tender to palpation. No reports of diarrhea. She is a social MJ user, rare ETOH user, and daily tobacco user. Last endoscopy / colonoscopy 5+ years ago. She presents today with leukocytosis. Hgb stable. LFTs unremarkable. Home Meds Active Scripts Sitagliptin* (JANUVIA*) 25 Mg Tablet, 25 MG ORAL ACBREAKFAST for 30 Days, TAB Prov:Phyllis Childs MD 10/02/16 Lactulose (LACTULOSE*) 20 Gm/30 Ml Solution, 30 GM ORAL THREE TIMES A DAY for 30 Days, AMP Prov:Phyllis hCilds MD 10/02/16 Isosorbide Dinitrate* (ISORDIL*) 10 Mg Tablet, 10 MG ORAL QID for 30 Days, TAB Prov:Phyllis Childs MD 10/02/16 Diltiazem HCl (Diltiazem 12Hr ER) 60 Mg Cap.er.12h, 30 MG ORAL EVERY 8 HOURS for 30 Days, CAP Prov:Phyllis Childs MD 10/02/16 Tramadol Hcl* (ULTRAM*) 50 Mg Tablet, 50 MG ORAL Q6H Y for For Pain, #12 TAB 0 Refills Prov:JARED OVERTON 08/25/14 Docusate Sodium* (COLACE*) 100 Mg Capsule, 100 MG ORAL THREE TIMES A DAY for Constipation, #15 CAP 0 Refills Prov:JARED OVERTON 08/25/14 Reported Medications Albuterol Sulfate* (ALBUTEROL SULFATE HHN*) 2.5 Mg/3 Ml Vial.neb, 3 ML INH NEEDED Y for Shortness of Breath, EA 09/28/16 No Known Medications* (NKM - No Known Medications*) ., 0 ., 0 Refills 08/25/14 Med list reviewed/reconciled: Yes Allergies: Coded Allergies: CODEINE (Unverified Allergy, Unknown, 09/28/16) Patient History History Provided By: Patient, Medical Record PMH Narrative Past Medical History: see triage record Past Surgical History: none Pertinent Family History: none Now: No Reviewed Nursing Documentation: PMH: Agreed, PSxH: Agreed Nursing Documentation-PMH Hx Hypertension: Yes Hx Asthma: Yes Hx Diabetes: Yes Hx Cancer: Yes - left breast Hx Neurological Problems: No Social History: Reports: alcohol use, drug use Review of Systems All Other Systems: negative except mentioned in HPI Physical Exam Vital Signs Date Time Temp Pulse Resp B/P (MAP) Pulse Ox O2 Delivery O2 Flow Rate FiO2 05/23/17 19:08 97.8 88 14 167/75 97 Room Air 97.9 Sp02 EP Interpretation: reviewed, normal Labs Laboratory Tests Test 05/23/17 21:20 05/23/17 21:30 05/24/17 13:42 White Blood Count 14.9 K/UL (4.8-10.8) H 12.4 K/UL (4.8-10.8) H Red Blood Count 4.74 M/UL (4.20-5.40) 3.42 M/UL (4.20-5.40) L Hemoglobin 15.0 G/DL (12.0-16.0) 10.8 G/DL (12.0-16.0) L Hematocrit 45.9 % (37.0-47.0) 33.4 % (37.0-47.0) L Mean Corpuscular Volume 97 FL (80-99) 98 FL (80-99) Mean Corpuscular Hemoglobin 31.7 PG (27.0-31.0) H 31.5 PG (27.0-31.0) H Mean Corpuscular Hemoglobin Concent 32.7 G/DL (32.0-36.0) 32.3 G/DL (32.0-36.0) Red Cell Distribution Width 12.7 % (11.6-14.8) 13.1 % (11.6-14.8) Platelet Count 289 K/UL (150-450) 198 K/UL (150-450) Mean Platelet Volume 7.3 FL (6.5-10.1) 6.7 FL (6.5-10.1) Neutrophils (%) (Auto) 58.5 % (45.0-75.0) 45.6 % (45.0-75.0) Lymphocytes (%) (Auto) 32.8 % (20.0-45.0) 41.4 % (20.0-45.0) Monocytes (%) (Auto) 5.7 % (1.0-10.0) 7.5 % (1.0-10.0) Eosinophils (%) (Auto) 1.6 % (0.0-3.0) 4.3 % (0.0-3.0) H Basophils (%) (Auto) 1.4 % (0.0-2.0) 1.2 % (0.0-2.0) Sodium Level 142 MMOL/L (136-145) 141 MMOL/L (136-145) Potassium Level 5.1 MMOL/L (3.5-5.1) 4.3 MMOL/L (3.5-5.1) Chloride Level 106 MMOL/L (98-107) 110 MMOL/L (98-107) H Carbon Dioxide Level 23 MMOL/L (21-32) 22 MMOL/L (21-32) Anion Gap 13 mmol/L (5-15) 9 mmol/L (5-15) Blood Urea Nitrogen 61 mg/dL (7-18) H 47 mg/dL (7-18) H Creatinine 4.6 MG/DL (0.55-1.30) H 3.3 MG/DL (0.55-1.30) H Estimat Glomerular Filtration Rate 11.8 mL/min (>60) 17.2 mL/min (>60) Glucose Level 70 MG/DL (74-106) L 128 MG/DL (74-106) H Calcium Level 9.7 MG/DL (8.5-10.1) 8.0 MG/DL (8.5-10.1) L Total Bilirubin 0.8 MG/DL (0.2-1.0) 0.7 MG/DL (0.2-1.0) Aspartate Amino Transf (AST/SGOT) 28 U/L (15-37) 19 U/L (15-37) Alanine Aminotransferase (ALT/SGPT) 29 U/L (12-78) 22 U/L (12-78) Alkaline Phosphatase 86 U/L (46-116) 58 U/L (46-116) Total Protein 8.7 G/DL (6.4-8.2) H 6.1 G/DL (6.4-8.2) L Albumin 4.2 G/DL (3.4-5.0) 2.9 G/DL (3.4-5.0) L Globulin 4.5 g/dL 3.2 g/dL Albumin/Globulin Ratio 0.9 (1.0-2.7) L 0.9 (1.0-2.7) L Lipase 126 U/L (73-393) Urine Color Pale yellow Urine Appearance Clear Urine pH 6 (4.5-8.0) Urine Specific [place] 1.015 (1.005-1.035) Urine Protein 3+ (NEGATIVE) H Urine Glucose (UA) Negative (NEGATIVE) Urine Ketones Negative (NEGATIVE) Urine Occult Blood 3+ (NEGATIVE) H Urine Nitrite Negative (NEGATIVE) Urine Bilirubin Negative (NEGATIVE) Urine Urobilinogen Normal MG/DL (0.0-1.0) Urine Leukocyte Esterase Negative (NEGATIVE) Urine RBC 0-2 /HPF (0 - 2) Urine WBC 0-2 /HPF (0 - 2) Urine Squamous Epithelial Cells Few /LPF (NONE/OCC) Urine Bacteria None /HPF (NONE) Hemoglobin A1c 7.1 % (4.3-6.0) H Alpha Fetoprotein Pending CA 125 Antigen Pending General Appearance: well appearing, no apparent distress, alert Head: normocephalic EENT: PERRL/EOMI, normal ENT inspection Neck: supple Respiratory: normal breath sounds, no respiratory distress Cardiovascular: normal rate Gastrointestinal: normal inspection, non tender, soft, normal bowel sounds, non -distended Rectal: deferred Genitourinary: no CVA tenderness Musculoskeletal: normal inspection, back normal Neurologic: normal inspection, alert, oriented x3, responsive Psychiatric: normal inspection, judgement/insight normal, memory normal Skin: normal inspection, normal color, no rash, warm/dry, palpation normal, well hydrated Lymphatic: normal inspection, no adenopathy Current Medications Current Medications Medications (Trade) Dose Ordered Sig/Wilma Route PRN Reason Start Time Stop Time Status Last Admin Dose Admin Acetaminophen (Tylenol) 650 mg Q6H PRN ORAL Mild Pain/Temp > 100.5 05/24/17 12:30 06/23/17 12:29 Dextrose (Dextrose 50%) STAT PRN IV Hypoglycemia 05/24/17 01:15 06/23/17 01:14 Folic Acid (Folate) 1 mg DAILY ORAL 05/24/17 09:00 06/23/17 08:59 05/24/17 08:53 Hydromorphone HCl (Dilaudid) 0.5 mg EVERY 3 HOURS PRN IVP For Pain 05/24/17 06:30 05/31/17 06:29 05/24/17 06:44 Insulin Aspart (NovoLOG) BEFORE MEALS AND HS SUBQ 05/24/17 16:30 06/23/17 16:29 Multivitamins (Multivitamins) 1 tab DAILY ORAL 05/24/17 09:00 06/23/17 08:59 05/24/17 08:54 Ondansetron HCl (Zofran) 4 mg Q6H PRN IVP Nausea & Vomiting 05/24/17 12:15 06/23/17 12:14 Pantoprazole (Protonix) 40 mg EVERY 12 HOURS IVP 05/24/17 21:00 06/23/17 20:59 Sodium Chloride 1,000 ml @ 100 mls/hr Q10H IVLG 05/24/17 02:07 06/23/17 02:06 05/24/17 12:11 Tramadol HCl (Ultram) 50 mg Q6H PRN ORAL For Pain 05/24/17 02:30 05/31/17 02:29 05/24/17 03:00 GI: Plan Problems: (1) Hematemesis (2) Alcohol abuse (3) Leukocytosis (4) Abdominal pain (5) Dehydration Plan CT AP reviewed. symptomatic treatment adv to renal diet zofran prn ppi daily prn transfusion fu labs, utox, tumor markers outpatient GI procedures Discussed with Dr. Gavin. Thank you for this patient referral, we will follow. Keyana Main N.P. May 24, 2017 15:35
[2017-05-24 16:00] VITALS: BP 108/70
[2017-05-24] MEDS: NovoLOG Insulin Flexpen SUBQ SCH ×2 (16:30→21:40)
[2017-05-24 20:00] VITALS: BP 122/55
[2017-05-24] MEDS: Pantoprazole Inj IVP SCH (20:06)
[2017-05-25] VITALS: BP 102/57
[2017-05-25] MEDS: Hydromorphone 0.5mg/0.5ml inj IVP PRN ×5 (03:15→21:54)
[2017-05-25 04:00] VITALS: BP 112/62
[2017-05-25] MEDS: NovoLOG Insulin Flexpen SUBQ SCH ×4 (06:13→20:35)
[2017-05-25 07:20] LABS: BASOPHILS % (AUTO) 1.4 % (0.0-2.0); EOSINOPHILS % (AUTO) 5.6 % (0.0-3.0); HEMATOCRIT 31.4 % (37.0-47.0); HEMOGLOBIN 10.4 G/DL (12.0-16.0); LYMPHOCYTES % (AUTO) 49.4 % (20.0-45.0); MEAN CORPUSCULAR VOLUME 98 FL (80-99); MONOCYTES % (AUTO) 6.8 % (1.0-10.0); NEUTROPHILS % (AUTO) 36.8 % (45.0-75.0); PLATELET COUNT 181 K/UL (150-450); RED CELL DISTRIBUTION WIDTH 13.2 % (11.6-14.8); WHITE BLOOD COUNT 11.6 K/UL (4.8-10.8)
[2017-05-25 07:54] LABS: CREATINE KINASE 137 U/L (26-308); GAMMA GLUTAMYL TRANSPEPTIDASE 17 U/L (5-85)
[2017-05-25 07:56] LABS: ALANINE AMINOTRANSFERASE 22 U/L (12-78); ALBUMIN 2.7 G/DL (3.4-5.0); ALBUMIN/GLOBULIN RATIO 0.9 (1.0-2.7); ALKALINE PHOSPHATASE 54 U/L (46-116); ANION GAP 8 mmol/L (5-15); ASPARTATE AMINO TRANSFERASE 16 U/L (15-37); BILIRUBIN,TOTAL 0.4 MG/DL (0.2-1.0); BLOOD UREA NITROGEN 35 mg/dL (7-18); CARBON DIOXIDE 20 MMOL/L (21-32); CHLORIDE 112 MMOL/L (98-107); CHOLESTEROL 138 MG/DL (< 200); CREATININE 2.9 MG/DL (0.55-1.30); FERRITIN 93 NG/ML (8-388); HDL CHOLESTEROL 45 MG/DL (40-60); POTASSIUM 4.9 MMOL/L (3.5-5.1); SODIUM 140 MMOL/L (136-145); TRIGLYCERIDES 57 MG/DL (30-150)
[2017-05-25 08:00] VITALS: BP 118/71
[2017-05-25 08:15] LABS: % IRON SATURATION 52 % (15-50); IRON 120 ug/dL (50-175); TOTAL IRON BINDING CAPACITY 233 ug/dL (250-450)
[2017-05-25] MEDS: Pantoprazole Inj IVP SCH ×2 (08:47→20:32)
[2017-05-25] MEDS: Thiamine 100mg tab ORAL SCH (08:49)
--- NOTE | 2017-05-25 11:55 | General Surgery Progress Note ---
General Surgery-Progress Note Subjective Symptoms: improved Additional Comments still with pain but intermittent. no n/v/f/c. pain in lower abdomen. states intermittent in RLQ Objective Last 24 Hour Vital Signs Date Time Temp Pulse Resp B/P (MAP) Pulse Ox O2 Delivery O2 Flow Rate FiO2 05/25/17 09:18 98.1 05/25/17 08:47 76 118/71 05/25/17 08:00 98.1 18 118/71 98 Room Air 98.1 05/25/17 04:00 97.7 19 112/62 97 Room Air 97.7 05/25/17 00:00 97.9 18 102/57 97 Room Air 97.9 05/24/17 20:00 98.4 18 122/55 97 Room Air 98.4 05/24/17 16:02 76 108/70 05/24/17 16:00 97.9 76 18 108/70 96 Room Air 97.9 05/24/17 12:00 98.6 79 21 96/57 97 Room Air 98.6 I&O Intake and Output 05/24/17 05/25/17 19:00 07:00 Intake Total 1690 ml 1050 ml Output Total 400 ml Balance 1290 ml 1050 ml Intake Oral 590 ml IV Total 1100 ml 1050 ml Output Urine Total 400 ml # Voids 4 Drains: none Cardiovascular: RSR Respiratory: clear Abdomen: soft, flat, tenderness, present bowel sounds Extremities: no cyanosis Laboratory Tests Test 05/24/17 13:42 05/24/17 15:30 05/25/17 06:30 White Blood Count 12.4 K/UL (4.8-10.8) H 11.6 K/UL (4.8-10.8) H Red Blood Count 3.42 M/UL (4.20-5.40) L 3.20 M/UL (4.20-5.40) L Hemoglobin 10.8 G/DL (12.0-16.0) L 10.4 G/DL (12.0-16.0) L Hematocrit 33.4 % (37.0-47.0) L 31.4 % (37.0-47.0) L Mean Corpuscular Volume 98 FL (80-99) 98 FL (80-99) Mean Corpuscular Hemoglobin 31.5 PG (27.0-31.0) H 32.3 PG (27.0-31.0) H Mean Corpuscular Hemoglobin Concent 32.3 G/DL (32.0-36.0) 33.0 G/DL (32.0-36.0) Red Cell Distribution Width 13.1 % (11.6-14.8) 13.2 % (11.6-14.8) Platelet Count 198 K/UL (150-450) 181 K/UL (150-450) Mean Platelet Volume 6.7 FL (6.5-10.1) 7.6 FL (6.5-10.1) Neutrophils (%) (Auto) 45.6 % (45.0-75.0) 36.8 % (45.0-75.0) L Lymphocytes (%) (Auto) 41.4 % (20.0-45.0) 49.4 % (20.0-45.0) H Monocytes (%) (Auto) 7.5 % (1.0-10.0) 6.8 % (1.0-10.0) Eosinophils (%) (Auto) 4.3 % (0.0-3.0) H 5.6 % (0.0-3.0) H Basophils (%) (Auto) 1.2 % (0.0-2.0) 1.4 % (0.0-2.0) Sodium Level 141 MMOL/L (136-145) 140 MMOL/L (136-145) Potassium Level 4.3 MMOL/L (3.5-5.1) 4.9 MMOL/L (3.5-5.1) Chloride Level 110 MMOL/L (98-107) H 112 MMOL/L (98-107) H Carbon Dioxide Level 22 MMOL/L (21-32) 20 MMOL/L (21-32) L Anion Gap 9 mmol/L (5-15) 8 mmol/L (5-15) Blood Urea Nitrogen 47 mg/dL (7-18) H 35 mg/dL (7-18) H Creatinine 3.3 MG/DL (0.55-1.30) H 2.9 MG/DL (0.55-1.30) H Estimat Glomerular Filtration Rate 17.2 mL/min (>60) 20.0 mL/min (>60) Glucose Level 128 MG/DL (74-106) H 133 MG/DL (74-106) H Hemoglobin A1c 7.1 % (4.3-6.0) H Calcium Level 8.0 MG/DL (8.5-10.1) L 8.0 MG/DL (8.5-10.1) L Total Bilirubin 0.7 MG/DL (0.2-1.0) 0.4 MG/DL (0.2-1.0) Aspartate Amino Transf (AST/SGOT) 19 U/L (15-37) 16 U/L (15-37) Alanine Aminotransferase (ALT/SGPT) 22 U/L (12-78) 22 U/L (12-78) Alkaline Phosphatase 58 U/L (46-116) 54 U/L (46-116) C-Reactive Protein, Quantitative 0.9 mg/dL (0.00-0.90) Total Protein 6.1 G/DL (6.4-8.2) L 5.8 G/DL (6.4-8.2) L Albumin 2.9 G/DL (3.4-5.0) L 2.7 G/DL (3.4-5.0) L Globulin 3.2 g/dL 3.1 g/dL Albumin/Globulin Ratio 0.9 (1.0-2.7) L 0.9 (1.0-2.7) L Alpha Fetoprotein 4.3 ng/mL (0.0-8.3) CA 125 Antigen 15.5 U/mL (0.0-38.1) Urine Opiates Screen Negative (NEGATIVE) Urine Barbiturates Screen Negative (NEGATIVE) Phencyclidine (PCP) Screen Negative (NEGATIVE) Urine Amphetamines Screen Negative (NEGATIVE) Urine Benzodiazepines Screen Negative (NEGATIVE) Urine Cocaine Screen Positive (NEGATIVE) H Urine Marijuana (THC) Screen Negative (NEGATIVE) Uric Acid 3.5 MG/DL (2.6-7.2) Magnesium Level 1.9 MG/DL (1.8-2.4) Iron Level 120 ug/dL (50-175) Total Iron Binding Capacity 233 ug/dL (250-450) L Percent Iron Saturation 52 % (15-50) H Unsaturated Iron Binding 113 ug/dL (112-346) Ferritin 93 NG/ML (8-388) Gamma Glutamyl Transpeptidase 17 U/L (5-85) Total Creatine Kinase 137 U/L (26-308) Pro-B-Type Natriuretic Peptide 797 pg/mL (0-125) H Triglycerides Level 57 MG/DL (30-150) Cholesterol Level 138 MG/DL (< 200) LDL Cholesterol 86 mg/dL (<100) HDL Cholesterol 45 MG/DL (40-60) Cholesterol/HDL Ratio 3.1 (3.3-4.4) L Vitamin B12 Level 609 PG/ML (193-986) Folate 11.6 NG/ML (8.6-58.9) Thyroid Stimulating Hormone (TSH) 2.075 uiU/mL (0.358-3.740) Plan Problems: (1) Abdominal pain Assessment & Plan: 62F with complaints as noted in HPI. on exam abdomen fairly benign but does complain of lower abdominal pain R>L. CT reviewed and has large unilocular right ovarian cyst/mass. bowel and remainder of abdomen otherwise okay. of note, ovarian pathology larger now than on prior images. -no acute surgical intervention necessary -would recommend HOSPITAL LIAISON evaluation given large unilateral ovarian pathology in post menopausal female. -thank you for this consultation and allowing me to participate in [facility]. Ramesh Sams May 25, 2017 11:54
[2017-05-25 12:00] VITALS: BP 138/79
--- NOTE | 2017-05-25 12:11 | Nephrology Progress Note ---
Assessment/Plan Problem List: (1) Renal failure (2) Chronic kidney disease (3) Dehydration Assessment Acute renal failure- ? CKD DM ? Nephropathy HTN lung nodule on CT Pelvic mass ? 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 Avoid Nephrotoxics Keep BP and BS in check per orders venous duplex Subjective ROS Limited/Unobtainable: No Constitutional: Reports: malaise, weakness Objective Objective Last 24 Hour Vital Signs Date Time Temp Pulse Resp B/P (MAP) Pulse Ox O2 Delivery O2 Flow Rate FiO2 05/25/17 09:18 98.1 05/25/17 08:47 76 118/71 05/25/17 08:00 98.1 18 118/71 98 Room Air 98.1 05/25/17 04:00 97.7 19 112/62 97 Room Air 97.7 05/25/17 00:00 97.9 18 102/57 97 Room Air 97.9 05/24/17 20:00 98.4 18 122/55 97 Room Air 98.4 05/24/17 16:02 76 108/70 05/24/17 16:00 97.9 76 18 108/70 96 Room Air 97.9 Intake and Output 05/24/17 05/25/17 19:00 07:00 Intake Total 1690 ml 1050 ml Output Total 400 ml Balance 1290 ml 1050 ml Intake Oral 590 ml IV Total 1100 ml 1050 ml Output Urine Total 400 ml # Voids 4 Laboratory Tests 05/24/17 13:42: White Blood Count 12.4H, Red Blood Count 3.42L, Hemoglobin 10.8L, Hematocrit 33.4L, Mean Corpuscular Volume 98, Mean Corpuscular Hemoglobin 31.5H, Mean Corpuscular Hemoglobin Concent 32.3, Red Cell Distribution Width 13.1, Platelet Count 198, Mean Platelet Volume 6.7, Neutrophils (%) (Auto) 45.6, Lymphocytes (% ) (Auto) 41.4, Monocytes (%) (Auto) 7.5, Eosinophils (%) (Auto) 4.3H, Basophils (%) (Auto) 1.2, Sodium Level 141, Potassium Level 4.3, Chloride Level 110H, Carbon Dioxide Level 22, Anion Gap 9, Blood Urea Nitrogen 47H, Creatinine 3.3H, Estimat Glomerular Filtration Rate 17.2, Glucose Level 128H, Hemoglobin A1c 7.1H , Calcium Level 8.0L, Total Bilirubin 0.7, Aspartate Amino Transf (AST/SGOT) 19 , Alanine Aminotransferase (ALT/SGPT) 22, Alkaline Phosphatase 58, C-Reactive Protein, Quantitative 0.9, Total Protein 6.1L, Albumin 2.9L, Globulin 3.2, Albumin/Globulin Ratio 0.9L, Alpha Fetoprotein 4.3, CA 125 Antigen 15.5 05/24/17 15:30: Urine Opiates Screen Negative, Urine Barbiturates Screen Negative, Phencyclidine (PCP) Screen Negative, Urine Amphetamines Screen Negative, Urine Benzodiazepines Screen Negative, Urine Cocaine Screen PositiveH, Urine Marijuana (THC) Screen Negative 05/25/17 06:30: White Blood Count 11.6H, Red Blood Count 3.20L, Hemoglobin 10.4L, Hematocrit 31.4L, Mean Corpuscular Volume 98, Mean Corpuscular Hemoglobin 32.3H, Mean Corpuscular Hemoglobin Concent 33.0, Red Cell Distribution Width 13.2, Platelet Count 181, Mean Platelet Volume 7.6, Neutrophils (%) (Auto) 36.8L, Lymphocytes ( %) (Auto) 49.4H, Monocytes (%) (Auto) 6.8, Eosinophils (%) (Auto) 5.6H, Basophils (%) (Auto) 1.4, Sodium Level 140, Potassium Level 4.9, Chloride Level 112H, Carbon Dioxide Level 20L, Anion Gap 8, Blood Urea Nitrogen 35H, Creatinine 2.9H, Estimat Glomerular Filtration Rate 20.0, Glucose Level 133H, Calcium Level 8.0L, Total Bilirubin 0.4, Aspartate Amino Transf (AST/SGOT) 16, Alanine Aminotransferase (ALT/SGPT) 22, Alkaline Phosphatase 54, Total Protein 5.8L, Albumin 2.7L, Globulin 3.1, Albumin/Globulin Ratio 0.9L, Uric Acid 3.5, Magnesium Level 1.9, Iron Level 120, Total Iron Binding Capacity 233L, Percent Iron Saturation 52H, Unsaturated Iron Binding 113, Ferritin 93, Gamma Glutamyl Transpeptidase 17, Total Creatine Kinase 137, Pro-B-Type Natriuretic Peptide 797H, Triglycerides Level 57, Cholesterol Level 138, LDL Cholesterol 86, HDL Cholesterol 45, Cholesterol/HDL Ratio 3.1L, Vitamin B12 Level 609, Folate 11.6, Thyroid Stimulating Hormone (TSH) 2.075 Height (Feet): 5 Height (Inches): 1.00 Weight (Pounds): 122 General Appearance: no apparent distress Cardiovascular: tachycardia Respiratory/Chest: decreased breath sounds Abdomen: distended CARMENZA SOSA May 25, 2017 12:11
--- NOTE | 2017-05-25 15:23 | General Progress Note ---
Assessment/Plan Status: stable Assessment/Plan Problem List: (1) Hematemesis ICD Codes: K92.0 - Hematemesis SNOMED: 3691477 (2) Lung nodule < 6cm on CT ICD Codes: R91.1 - Solitary pulmonary nodule SNOMED: 839057500, 194150173 (3) Asthma ICD Codes: J45.909 - Unspecified asthma, uncomplicated SNOMED: 192672725 (4) H/O malignant neoplasm of breast ICD Codes: Z85.3 - Personal history of malignant neoplasm of breast SNOMED: 525197681 (5) Hypertension ICD Codes: I10 - Essential (primary) hypertension SNOMED: 41756237 (6) Diabetes ICD Codes: E11.9 - Type 2 diabetes mellitus without complications SNOMED: 35218092 (7) Abdominal pain ICD Codes: R10.9 - Unspecified abdominal pain SNOMED: 72191806 (8) Chronic kidney disease ICD Codes: N18.9 - Chronic kidney disease, unspecified SNOMED: 217004139 (9) Pelvic mass ICD Codes: R19.00 - Intra-abdominal and pelvic swelling, mass and lump, unspecified site SNOMED: 00794185 (10) Headache ICD Codes: R51 - Headache SNOMED: 83740977 (11) Alcohol abuse ICD Codes: F10.10 - Alcohol abuse, uncomplicated SNOMED: 32558395 (12) Constipation ICD Codes: K59.00 - Constipation, unspecified SNOMED: 97340776 (13) Leukocytosis ICD Codes: D72.829 - Elevated white blood cell count, unspecified SNOMED: 713960459, 560246467 Status: stable Assessment/Plan - General surgery, renal, GI, and GOSPEL SINGER consulted - appreciate recs - monitor leuks - monitor H/H and transfuse prn Hgb < 7 - monitor CHEM - monitor Cr. Avoid nephrotoxic meds - PPi 40mg IV BID - continue home albuterol and BP meds - SSi. Monitor blood sugars - multivitamin, folate, thiamine daily - antiemetics prn - pain control and supportive care - f/u with repeat CT chest in 3-6 months given 3mm left lateral lung base - pain control - supportive care - Dispo planning Subjective Date patient seen: May 25, 2017 Allergies: Coded Allergies: CODEINE (Unverified Allergy, Unknown, 09/28/16) Subjective No acute events afebrile and hds Hb stable Cr improved Awaiting GOSPEL SINGER evaluation c/o abd pain denies cp, sob, palp, orthopnea, n/v/d Objective Last 24 Hour Vital Signs Date Time Temp Pulse Resp B/P (MAP) Pulse Ox O2 Delivery O2 Flow Rate FiO2 05/25/17 13:21 98.2 05/25/17 12:00 98.2 20 138/79 100 Room Air 98.2 05/25/17 09:18 98.1 05/25/17 08:47 76 118/71 05/25/17 08:00 98.1 18 118/71 98 Room Air 98.1 05/25/17 04:00 97.7 19 112/62 97 Room Air 97.7 05/25/17 00:00 97.9 18 102/57 97 Room Air 97.9 05/24/17 20:00 98.4 18 122/55 97 Room Air 98.4 05/24/17 16:02 76 108/70 05/24/17 16:00 97.9 76 18 108/70 96 Room Air 97.9 Intake and Output 05/24/17 05/25/17 19:00 07:00 Intake Total 1690 ml 1050 ml Output Total 400 ml Balance 1290 ml 1050 ml Intake Oral 590 ml IV Total 1100 ml 1050 ml Output Urine Total 400 ml # Voids 4 Laboratory Tests 05/24/17 15:30: Urine Opiates Screen Negative, Urine Barbiturates Screen Negative, Phencyclidine (PCP) Screen Negative, Urine Amphetamines Screen Negative, Urine Benzodiazepines Screen Negative, Urine Cocaine Screen PositiveH, Urine Marijuana (THC) Screen Negative 05/25/17 06:30: White Blood Count 11.6H, Red Blood Count 3.20L, Hemoglobin 10.4L, Hematocrit 31.4L, Mean Corpuscular Volume 98, Mean Corpuscular Hemoglobin 32.3H, Mean Corpuscular Hemoglobin Concent 33.0, Red Cell Distribution Width 13.2, Platelet Count 181, Mean Platelet Volume 7.6, Neutrophils (%) (Auto) 36.8L, Lymphocytes ( %) (Auto) 49.4H, Monocytes (%) (Auto) 6.8, Eosinophils (%) (Auto) 5.6H, Basophils (%) (Auto) 1.4, Sodium Level 140, Potassium Level 4.9, Chloride Level 112H, Carbon Dioxide Level 20L, Anion Gap 8, Blood Urea Nitrogen 35H, Creatinine 2.9H, Estimat Glomerular Filtration Rate 20.0, Glucose Level 133H, Uric Acid 3.5, Calcium Level 8.0L, Magnesium Level 1.9, Iron Level 120, Total Iron Binding Capacity 233L, Percent Iron Saturation 52H, Unsaturated Iron Binding 113, Ferritin 93, Total Bilirubin 0.4, Gamma Glutamyl Transpeptidase 17 , Aspartate Amino Transf (AST/SGOT) 16, Alanine Aminotransferase (ALT/SGPT) 22, Alkaline Phosphatase 54, Total Creatine Kinase 137, Pro-B-Type Natriuretic Peptide 797H, Total Protein 5.8L, Albumin 2.7L, Globulin 3.1, Albumin/Globulin Ratio 0.9L, Triglycerides Level 57, Cholesterol Level 138, LDL Cholesterol 86, HDL Cholesterol 45, Cholesterol/HDL Ratio 3.1L, Vitamin B12 Level 609, Folate 11.6, Thyroid Stimulating Hormone (TSH) 2.075 Height (Feet): 5 Height (Inches): 1.00 Weight (Pounds): 122 Objective HEENT: normocephalic, atraumatic Respiratory/Chest: chest wall non-tender, lungs clear, normal breath sounds Cardiovascular/Chest: normal peripheral pulses, normal rate, regular rhythm Abdomen: normal bowel sounds, soft, tender Extremities: normal range of motion, non-tender Skin Exam: normal pigmentation, warm/dry 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
[2017-05-25 16:00] VITALS: BP 114/68
[2017-05-25 20:00] VITALS: BP 119/73
[2017-05-25] MEDS: traMADol 50mg tab ORAL PRN (20:32)
--- NOTE | 2017-05-25 22:30 | Diagnostic Imaging Report ---
APPROVED REPORT CPT Code: 92579 Present Symptoms Lower Extremity Pain: Bilateral BILATERAL: Imaging reveals a patent deep venous system bilaterally. There is no evidence of thrombus within the femoral, popliteal or tibial segments. The greater saphenous veins are also within normal limits. Doppler indicates normal spontaneous flow within these segments.
[2017-05-26] VITALS: BP 122/81
[2017-05-26] MEDS: Hydromorphone 0.5mg/0.5ml inj IVP PRN ×5 (03:12→21:15)
[2017-05-26 04:00] VITALS: BP 110/56
[2017-05-26] MEDS: NovoLOG Insulin Flexpen SUBQ SCH ×4 (06:07→21:14)
[2017-05-26 08:00] VITALS: BP 124/78
[2017-05-26] MEDS: Pantoprazole Inj IVP SCH ×2 (08:37→21:15)
[2017-05-26] MEDS: Thiamine 100mg tab ORAL SCH (09:00)
--- NOTE | 2017-05-26 09:38 | General Progress Note ---
Assessment/Plan Problem List: (1) COPD (chronic obstructive pulmonary disease) ICD Codes: J44.9 - Chronic obstructive pulmonary disease, unspecified SNOMED: 38841583 (2) Lung nodule < 6cm on CT ICD Codes: R91.1 - Solitary pulmonary nodule SNOMED: 119168531, 529226472 (3) Chronic kidney disease ICD Codes: N18.9 - Chronic kidney disease, unspecified SNOMED: 868685613 (4) Abdominal pain ICD Codes: R10.9 - Unspecified abdominal pain SNOMED: 30076243 Qualifiers: Qualified Codes: R10.30 - Lower abdominal pain, unspecified (5) Diabetes ICD Codes: E11.9 - Type 2 diabetes mellitus without complications SNOMED: 64057469 (6) Constipation ICD Codes: K59.00 - Constipation, unspecified SNOMED: 83543055 (7) Alcohol abuse ICD Codes: F10.10 - Alcohol abuse, uncomplicated SNOMED: 92835568 Assessment/Plan fu abd us bowel regimen fu labs Subjective ROS Limited/Unobtainable: Yes Allergies: Coded Allergies: CODEINE (Unverified Allergy, Unknown, 09/28/16) Subjective abd pain Objective Last 24 Hour Vital Signs Date Time Temp Pulse Resp B/P (MAP) Pulse Ox O2 Delivery O2 Flow Rate FiO2 05/26/17 08:38 97.3 05/26/17 08:00 97.3 65 20 124/78 100 Room Air 97.3 05/26/17 04:00 98.2 72 20 110/56 100 98.2 05/26/17 00:00 98.3 80 20 122/81 98 Room Air 98.3 05/25/17 20:00 98.5 82 20 119/73 96 Room Air 98.5 05/25/17 18:25 97.9 05/25/17 16:00 97.9 20 114/68 99 Room Air 97.9 05/25/17 13:21 98.2 05/25/17 12:00 98.2 20 138/79 100 Room Air 98.2 Intake and Output 05/25/17 05/26/17 19:00 07:00 Intake Total 1450 ml 1200 ml Output Total 3150 ml 1250 ml Balance -1700 ml -50 ml Intake Oral 450 ml IV Total 1000 ml 1200 ml Output Urine Total 3150 ml 1250 ml Height (Feet): 5 Height (Inches): 1.00 Weight (Pounds): 122 General Appearance: alert EENT: normal ENT inspection Neck: supple Cardiovascular: normal rate Respiratory/Chest: decreased breath sounds Abdomen: normal bowel sounds, non tender, soft Extremities: non-tender NA WILLIS May 26, 2017 09:37
[2017-05-26 12:00] VITALS: BP 135/75
[2017-05-26] MEDS: traMADol 50mg tab ORAL PRN (13:03)
[2017-05-26 13:17] LABS: BASOPHILS % (AUTO) 1.2 % (0.0-2.0); EOSINOPHILS % (AUTO) 6.1 % (0.0-3.0); HEMATOCRIT 35.3 % (37.0-47.0); HEMOGLOBIN 11.4 G/DL (12.0-16.0); LYMPHOCYTES % (AUTO) 37.9 % (20.0-45.0); MEAN CORPUSCULAR VOLUME 98 FL (80-99); MONOCYTES % (AUTO) 6.9 % (1.0-10.0); PLATELET COUNT 197 K/UL (150-450); RED BLOOD COUNT 3.59 M/UL (4.20-5.40); WHITE BLOOD COUNT 12.9 K/UL (4.8-10.8)
--- NOTE | 2017-05-26 13:21 | General Surgery Progress Note ---
General Surgery-Progress Note Subjective Additional Comments pain improving. no n/v/f/c. comfortable. Objective Last 24 Hour Vital Signs Date Time Temp Pulse Resp B/P (MAP) Pulse Ox O2 Delivery O2 Flow Rate FiO2 05/26/17 13:03 97.3 05/26/17 12:33 97.3 05/26/17 12:03 97.3 05/26/17 12:00 98.4 82 18 135/75 99 Room Air 98.4 05/26/17 09:55 65 124/78 05/26/17 08:38 97.3 05/26/17 08:00 97.3 65 20 124/78 100 Room Air 97.3 05/26/17 04:00 98.2 72 20 110/56 100 98.2 05/26/17 00:00 98.3 80 20 122/81 98 Room Air 98.3 05/25/17 20:00 98.5 82 20 119/73 96 Room Air 98.5 05/25/17 18:25 97.9 05/25/17 16:00 97.9 20 114/68 99 Room Air 97.9 05/25/17 13:21 98.2 I&O Intake and Output 05/25/17 05/26/17 19:00 07:00 Intake Total 1450 ml 1200 ml Output Total 3150 ml 1250 ml Balance -1700 ml -50 ml Intake Oral 450 ml IV Total 1000 ml 1200 ml Output Urine Total 3150 ml 1250 ml Drains: none Cardiovascular: RSR Respiratory: clear Abdomen: soft, other - mass palpable in RLQ (as seen on CT), tender on palpation. remainder of abdomen benign. Extremities: no tenderness, no cyanosis Laboratory Tests Test 05/26/17 12:45 White Blood Count Pending Red Blood Count Pending Hemoglobin Pending Hematocrit Pending Mean Corpuscular Volume Pending Mean Corpuscular Hemoglobin Pending Mean Corpuscular Hemoglobin Concent Pending Red Cell Distribution Width Pending Platelet Count Pending Mean Platelet Volume Pending Neutrophils (%) (Auto) Pending Lymphocytes (%) (Auto) Pending Monocytes (%) (Auto) Pending Eosinophils (%) (Auto) Pending Basophils (%) (Auto) Pending Sodium Level Pending Potassium Level Pending Chloride Level Pending Carbon Dioxide Level Pending Blood Urea Nitrogen Pending Creatinine Pending Estimat Glomerular Filtration Rate Pending Glucose Level Pending Calcium Level Pending Total Bilirubin Pending Aspartate Amino Transf (AST/SGOT) Pending Alanine Aminotransferase (ALT/SGPT) Pending Alkaline Phosphatase Pending Total Protein Pending Albumin Pending Globulin Pending Plan Problems: (1) Abdominal pain Assessment & Plan: 62F with complaints as noted in HPI. on exam abdomen fairly benign but does complain of lower abdominal pain R>L. CT reviewed and has large unilocular right ovarian cyst/mass. bowel and remainder of abdomen otherwise okay. of note, ovarian pathology larger now than on prior images. -no acute surgical intervention necessary -would recommend NANNY BABYSITTER evaluation given large unilateral ovarian pathology in post menopausal female. -can potentially be done as an outpatient. -okay to d/c from surgical standpoint -thank you for this consultation and allowing me to participate in [facility]. Ramesh Sams May 26, 2017 13:21
[2017-05-26 13:30] LABS: ALANINE AMINOTRANSFERASE 26 U/L (12-78); ALBUMIN/GLOBULIN RATIO 0.9 (1.0-2.7); ALKALINE PHOSPHATASE 66 U/L (46-116); ANION GAP 8 mmol/L (5-15); ASPARTATE AMINO TRANSFERASE 16 U/L (15-37); BILIRUBIN,TOTAL 0.4 MG/DL (0.2-1.0); BLOOD UREA NITROGEN 29 mg/dL (7-18); CALCIUM 8.4 MG/DL (8.5-10.1); CARBON DIOXIDE 21 MMOL/L (21-32); CHLORIDE 111 MMOL/L (98-107); CREATININE 2.3 MG/DL (0.55-1.30); POTASSIUM 5.1 MMOL/L (3.5-5.1); SODIUM 140 MMOL/L (136-145)
[2017-05-26 16:00] VITALS: BP 126/72
[2017-05-26] MEDS: Docusate 100mg cap ORAL SCH (17:08)
--- NOTE | 2017-05-26 18:09 | Nephrology Progress Note ---
Assessment/Plan Problem List: (1) Renal failure (2) Chronic kidney disease (3) Dehydration Assessment Acute renal failure- cr lowering ? CKD DM ? Nephropathy HTN lung nodule on CT Pelvic mass ? 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 Avoid Nephrotoxics Keep BP and BS in check per orders venous duplex Subjective ROS Limited/Unobtainable: No Constitutional: Reports: malaise Objective Objective Last 24 Hour Vital Signs Date Time Temp Pulse Resp B/P (MAP) Pulse Ox O2 Delivery O2 Flow Rate FiO2 05/26/17 17:38 97.3 05/26/17 17:08 97.3 05/26/17 16:00 98.6 78 18 126/72 98 Room Air 98.6 05/26/17 14:02 97.3 05/26/17 13:03 97.3 05/26/17 12:03 97.3 05/26/17 12:00 98.4 82 18 135/75 99 Room Air 98.4 05/26/17 09:55 65 124/78 05/26/17 08:38 97.3 05/26/17 08:00 97.3 65 20 124/78 100 Room Air 97.3 05/26/17 04:00 98.2 72 20 110/56 100 98.2 05/26/17 00:00 98.3 80 20 122/81 98 Room Air 98.3 05/25/17 20:00 98.5 82 20 119/73 96 Room Air 98.5 05/25/17 18:25 97.9 Intake and Output 05/25/17 05/26/17 19:00 07:00 Intake Total 1450 ml 1200 ml Output Total 3150 ml 1250 ml Balance -1700 ml -50 ml Intake Oral 450 ml IV Total 1000 ml 1200 ml Output Urine Total 3150 ml 1250 ml Laboratory Tests 05/26/17 12:45: White Blood Count 12.9H, Red Blood Count 3.59L, Hemoglobin 11.4L, Hematocrit 35.3L, Mean Corpuscular Volume 98, Mean Corpuscular Hemoglobin 31.6H, Mean Corpuscular Hemoglobin Concent 32.2, Red Cell Distribution Width 13.0, Platelet Count 197, Mean Platelet Volume 6.9, Neutrophils (%) (Auto) 48.0, Lymphocytes (% ) (Auto) 37.9, Monocytes (%) (Auto) 6.9, Eosinophils (%) (Auto) 6.1H, Basophils (%) (Auto) 1.2, Sodium Level 140, Potassium Level 5.1, Chloride Level 111H, Carbon Dioxide Level 21, Anion Gap 8, Blood Urea Nitrogen 29H, Creatinine 2.3H, Estimat Glomerular Filtration Rate 26.3, Glucose Level 104, Calcium Level 8.4L, Total Bilirubin 0.4, Aspartate Amino Transf (AST/SGOT) 16, Alanine Aminotransferase (ALT/SGPT) 26, Alkaline Phosphatase 66, Total Protein 6.3L, Albumin 3.0L, Globulin 3.3, Albumin/Globulin Ratio 0.9L Height (Feet): 5 Height (Inches): 1.00 Weight (Pounds): 122 General Appearance: no apparent distress Cardiovascular: regular rhythm Respiratory/Chest: decreased breath sounds Objective no change CARMENZA SOSA 18, 2018 18:09
--- NOTE | 2017-05-26 20:36 | General Progress Note ---
Assessment/Plan Assessment/Plan Problem List: (1) Hematemesis ICD Codes: K92.0 - Hematemesis SNOMED: 4067078 (2) Lung nodule < 6cm on CT ICD Codes: R91.1 - Solitary pulmonary nodule SNOMED: 266427206, 349365581 (3) Asthma ICD Codes: J45.909 - Unspecified asthma, uncomplicated SNOMED: 231161182 (4) H/O malignant neoplasm of breast ICD Codes: Z85.3 - Personal history of malignant neoplasm of breast SNOMED: 723194840 (5) Hypertension ICD Codes: I10 - Essential (primary) hypertension SNOMED: 13664319 (6) Diabetes ICD Codes: E11.9 - Type 2 diabetes mellitus without complications SNOMED: 37238992 (7) Abdominal pain ICD Codes: R10.9 - Unspecified abdominal pain SNOMED: 32305469 (8) Chronic kidney disease ICD Codes: N18.9 - Chronic kidney disease, unspecified SNOMED: 495758016 (9) Pelvic mass ICD Codes: R19.00 - Intra-abdominal and pelvic swelling, mass and lump, unspecified site SNOMED: 61902541 (10) Headache ICD Codes: R51 - Headache SNOMED: 46370817 (11) Alcohol abuse ICD Codes: F10.10 - Alcohol abuse, uncomplicated SNOMED: 59686484 (12) Constipation ICD Codes: K59.00 - Constipation, unspecified SNOMED: 92032932 (13) Leukocytosis ICD Codes: D72.829 - Elevated white blood cell count, unspecified SNOMED: 710519376, 279567658 Status: stable Assessment/Plan - General surgery, renal, GI, and CHILD ADVOCATE consulted - appreciate recs - monitor leuks - monitor H/H and transfuse prn Hgb < 7 - monitor CHEM - monitor Cr. Avoid nephrotoxic meds - PPi 40mg IV BID - continue home albuterol and BP meds - SSi. Monitor blood sugars - multivitamin, folate, thiamine daily - antiemetics prn - pain control and supportive care - f/u with repeat CT chest in 3-6 months given 3mm left lateral lung base - pain control - supportive care - Dispo planning Subjective Date patient seen: May 26, 2017 Allergies: Coded Allergies: CODEINE (Unverified Allergy, Unknown, 09/28/16) Subjective No acute events afebrile and hds c/o abd pain denies cp, sob, palp, orthopnea, n/v/d Objective Last 24 Hour Vital Signs Date Time Temp Pulse Resp B/P (MAP) Pulse Ox O2 Delivery O2 Flow Rate FiO2 05/26/17 17:38 97.3 05/26/17 17:08 97.3 05/26/17 16:00 98.6 78 18 126/72 98 Room Air 98.6 05/26/17 14:02 97.3 05/26/17 13:03 97.3 05/26/17 12:03 97.3 05/26/17 12:00 98.4 82 18 135/75 99 Room Air 98.4 05/26/17 09:55 65 124/78 05/26/17 08:38 97.3 05/26/17 08:00 97.3 65 20 124/78 100 Room Air 97.3 05/26/17 04:00 98.2 72 20 110/56 100 98.2 05/26/17 00:00 98.3 80 20 122/81 98 Room Air 98.3 Intake and Output 05/25/17 05/26/17 19:00 07:00 Intake Total 1450 ml 1200 ml Output Total 3150 ml 1250 ml Balance -1700 ml -50 ml Intake Oral 450 ml IV Total 1000 ml 1200 ml Output Urine Total 3150 ml 1250 ml Laboratory Tests 05/26/17 12:45: White Blood Count 12.9H, Red Blood Count 3.59L, Hemoglobin 11.4L, Hematocrit 35.3L, Mean Corpuscular Volume 98, Mean Corpuscular Hemoglobin 31.6H, Mean Corpuscular Hemoglobin Concent 32.2, Red Cell Distribution Width 13.0, Platelet Count 197, Mean Platelet Volume 6.9, Neutrophils (%) (Auto) 48.0, Lymphocytes (% ) (Auto) 37.9, Monocytes (%) (Auto) 6.9, Eosinophils (%) (Auto) 6.1H, Basophils (%) (Auto) 1.2, Sodium Level 140, Potassium Level 5.1, Chloride Level 111H, Carbon Dioxide Level 21, Anion Gap 8, Blood Urea Nitrogen 29H, Creatinine 2.3H, Estimat Glomerular Filtration Rate 26.3, Glucose Level 104, Calcium Level 8.4L, Total Bilirubin 0.4, Aspartate Amino Transf (AST/SGOT) 16, Alanine Aminotransferase (ALT/SGPT) 26, Alkaline Phosphatase 66, Total Protein 6.3L, Albumin 3.0L, Globulin 3.3, Albumin/Globulin Ratio 0.9L Height (Feet): 5 Height (Inches): 1.00 Weight (Pounds): 122 Objective HEENT: normocephalic, atraumatic Respiratory/Chest: chest wall non-tender, lungs clear, normal breath sounds Cardiovascular/Chest: normal peripheral pulses, normal rate, regular rhythm Abdomen: normal bowel sounds, soft, tender Extremities: normal range of motion, non-tender Skin Exam: normal pigmentation, warm/dry 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
[2017-05-26] MEDS: Miralax 17gm pkt ORAL SCH (21:15)
[2017-05-27] MEDS: traMADol 50mg tab ORAL PRN (01:26)
[2017-05-27] MEDS: NovoLOG Insulin Flexpen SUBQ SCH ×4 (06:35→20:32)
[2017-05-27] MEDS: Pantoprazole Inj IVP SCH ×2 (08:34→20:31)
[2017-05-27] MEDS: Thiamine 100mg tab ORAL SCH (08:36)
[2017-05-27] MEDS: Docusate 100mg cap ORAL SCH ×2 (08:36→18:00)
[2017-05-27] MEDS: Hydromorphone 0.5mg/0.5ml inj IVP PRN ×2 (08:37→12:55)
--- NOTE | 2017-05-27 11:04 | GI Progress Note ---
Assessment/Plan Problems: (1) Abdominal pain ICD Codes: R10.9 - Unspecified abdominal pain SNOMED: 23542442 Qualifiers: Qualified Codes: R10.30 - Lower abdominal pain, unspecified (2) Constipation ICD Codes: K59.00 - Constipation, unspecified SNOMED: 52798264 (3) Hematemesis ICD Codes: K92.0 - Hematemesis SNOMED: 5486289 (4) Alcohol abuse ICD Codes: F10.10 - Alcohol abuse, uncomplicated SNOMED: 68327835 Status: stable Status Narrative Discussed with Dr. Gavin. Assessment/Plan utox positive cocaine symptomatic treatment adv to renal diet zofran prn ppi daily prn transfusion bowel regime fu labs outpatient GI procedures Subjective Subjective lower abdominal pain Objective Last 24 Hour Vital Signs Date Time Temp Pulse Resp B/P (MAP) Pulse Ox O2 Delivery O2 Flow Rate FiO2 05/27/17 08:36 76 110/66 05/27/17 00:00 98 Room Air 05/26/17 20:00 98 Room Air 05/26/17 17:38 97.3 05/26/17 17:08 97.3 05/26/17 16:00 98.6 78 18 126/72 98 Room Air 98.6 05/26/17 14:02 97.3 05/26/17 13:03 97.3 05/26/17 12:03 97.3 05/26/17 12:00 98.4 82 18 135/75 99 Room Air 98.4 Intake and Output 05/26/17 05/27/17 19:00 07:00 Intake Total 2320 ml 1500 ml Output Total 2800 ml 2650 ml Balance -480 ml -1150 ml Intake Oral 1120 ml IV Total 1200 ml 700 ml Other 800 ml Output Urine Total 2800 ml 2650 ml # Voids 2 # Bowel Movements 1 3 Laboratory Tests Test 05/26/17 12:45 White Blood Count 12.9 K/UL (4.8-10.8) H Red Blood Count 3.59 M/UL (4.20-5.40) L Hemoglobin 11.4 G/DL (12.0-16.0) L Hematocrit 35.3 % (37.0-47.0) L Mean Corpuscular Volume 98 FL (80-99) Mean Corpuscular Hemoglobin 31.6 PG (27.0-31.0) H Mean Corpuscular Hemoglobin Concent 32.2 G/DL (32.0-36.0) Red Cell Distribution Width 13.0 % (11.6-14.8) Platelet Count 197 K/UL (150-450) Mean Platelet Volume 6.9 FL (6.5-10.1) Neutrophils (%) (Auto) 48.0 % (45.0-75.0) Lymphocytes (%) (Auto) 37.9 % (20.0-45.0) Monocytes (%) (Auto) 6.9 % (1.0-10.0) Eosinophils (%) (Auto) 6.1 % (0.0-3.0) H Basophils (%) (Auto) 1.2 % (0.0-2.0) Sodium Level 140 MMOL/L (136-145) Potassium Level 5.1 MMOL/L (3.5-5.1) Chloride Level 111 MMOL/L (98-107) H Carbon Dioxide Level 21 MMOL/L (21-32) Anion Gap 8 mmol/L (5-15) Blood Urea Nitrogen 29 mg/dL (7-18) H Creatinine 2.3 MG/DL (0.55-1.30) H Estimat Glomerular Filtration Rate 26.3 mL/min (>60) Glucose Level 104 MG/DL (74-106) Calcium Level 8.4 MG/DL (8.5-10.1) L Total Bilirubin 0.4 MG/DL (0.2-1.0) Aspartate Amino Transf (AST/SGOT) 16 U/L (15-37) Alanine Aminotransferase (ALT/SGPT) 26 U/L (12-78) Alkaline Phosphatase 66 U/L (46-116) Total Protein 6.3 G/DL (6.4-8.2) L Albumin 3.0 G/DL (3.4-5.0) L Globulin 3.3 g/dL Albumin/Globulin Ratio 0.9 (1.0-2.7) L Height (Feet): 5 Height (Inches): 1.00 Weight (Pounds): 122 General Appearance: WD/WN, no apparent distress, alert Cardiovascular: normal rate Respiratory/Chest: normal breath sounds, no respiratory distress Abdominal Exam: normal bowel sounds, non tender, soft Extremities: normal range of motion, non-tender Main,Keyana Ej N.P. May 27, 2017 11:04
--- NOTE | 2017-05-27 12:15 | General Surgery Progress Note ---
General Surgery-Progress Note Subjective Additional Comments no acute events. leukocytosis. pending ultrasound. Objective Last 24 Hour Vital Signs Date Time Temp Pulse Resp B/P (MAP) Pulse Ox O2 Delivery O2 Flow Rate FiO2 05/27/17 08:36 76 110/66 05/27/17 00:00 98 Room Air 05/26/17 20:00 98 Room Air 05/26/17 17:38 97.3 05/26/17 17:08 97.3 05/26/17 16:00 98.6 78 18 126/72 98 Room Air 98.6 05/26/17 14:02 97.3 05/26/17 13:03 97.3 I&O Intake and Output 05/26/17 05/27/17 19:00 07:00 Intake Total 2320 ml 1500 ml Output Total 2800 ml 2650 ml Balance -480 ml -1150 ml Intake Oral 1120 ml IV Total 1200 ml 700 ml Other 800 ml Output Urine Total 2800 ml 2650 ml # Voids 2 # Bowel Movements 1 3 Cardiovascular: RSR Respiratory: clear Abdomen: soft, other - firmness noted in RLQ with mild discomfort. Extremities: no cyanosis Laboratory Tests Test 05/26/17 12:45 White Blood Count 12.9 K/UL (4.8-10.8) H Red Blood Count 3.59 M/UL (4.20-5.40) L Hemoglobin 11.4 G/DL (12.0-16.0) L Hematocrit 35.3 % (37.0-47.0) L Mean Corpuscular Volume 98 FL (80-99) Mean Corpuscular Hemoglobin 31.6 PG (27.0-31.0) H Mean Corpuscular Hemoglobin Concent 32.2 G/DL (32.0-36.0) Red Cell Distribution Width 13.0 % (11.6-14.8) Platelet Count 197 K/UL (150-450) Mean Platelet Volume 6.9 FL (6.5-10.1) Neutrophils (%) (Auto) 48.0 % (45.0-75.0) Lymphocytes (%) (Auto) 37.9 % (20.0-45.0) Monocytes (%) (Auto) 6.9 % (1.0-10.0) Eosinophils (%) (Auto) 6.1 % (0.0-3.0) H Basophils (%) (Auto) 1.2 % (0.0-2.0) Sodium Level 140 MMOL/L (136-145) Potassium Level 5.1 MMOL/L (3.5-5.1) Chloride Level 111 MMOL/L (98-107) H Carbon Dioxide Level 21 MMOL/L (21-32) Anion Gap 8 mmol/L (5-15) Blood Urea Nitrogen 29 mg/dL (7-18) H Creatinine 2.3 MG/DL (0.55-1.30) H Estimat Glomerular Filtration Rate 26.3 mL/min (>60) Glucose Level 104 MG/DL (74-106) Calcium Level 8.4 MG/DL (8.5-10.1) L Total Bilirubin 0.4 MG/DL (0.2-1.0) Aspartate Amino Transf (AST/SGOT) 16 U/L (15-37) Alanine Aminotransferase (ALT/SGPT) 26 U/L (12-78) Alkaline Phosphatase 66 U/L (46-116) Total Protein 6.3 G/DL (6.4-8.2) L Albumin 3.0 G/DL (3.4-5.0) L Globulin 3.3 g/dL Albumin/Globulin Ratio 0.9 (1.0-2.7) L Plan Problems: (1) Abdominal pain Assessment & Plan: 62F with complaints as noted in HPI. on exam abdomen fairly benign but does complain of lower abdominal pain R>L. CT reviewed and has large unilocular right ovarian cyst/mass. bowel and remainder of abdomen otherwise okay. of note, ovarian pathology larger now than on prior images. -no acute surgical intervention necessary -would recommend PATHOLOGY TRANSCRIPTIONIST evaluation given large unilateral ovarian pathology in post menopausal female. -can potentially be done as an outpatient. -okay to d/c from surgical standpoint -thank you for this consultation and allowing me to participate in [facility]. Ramesh Sams May 27, 2017 12:15
--- NOTE | 2017-05-27 12:20 | Nephrology Progress Note ---
Assessment/Plan Problem List: (1) Renal failure (2) Chronic kidney disease (3) Dehydration Assessment Acute renal failure- cr lowering ? CKD DM ? Nephropathy HTN lung nodule on CT Pelvic mass ? 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 Avoid Nephrotoxics Keep BP and BS in check per orders venous duplex Subjective ROS Limited/Unobtainable: No Constitutional: Reports: malaise Objective Objective Last 24 Hour Vital Signs Date Time Temp Pulse Resp B/P (MAP) Pulse Ox O2 Delivery O2 Flow Rate FiO2 05/27/17 08:36 76 110/66 05/27/17 00:00 98 Room Air 05/26/17 20:00 98 Room Air 05/26/17 17:38 97.3 05/26/17 17:08 97.3 05/26/17 16:00 98.6 78 18 126/72 98 Room Air 98.6 05/26/17 14:02 97.3 05/26/17 13:03 97.3 Intake and Output 05/26/17 05/27/17 19:00 07:00 Intake Total 2320 ml 1500 ml Output Total 2800 ml 2650 ml Balance -480 ml -1150 ml Intake Oral 1120 ml IV Total 1200 ml 700 ml Other 800 ml Output Urine Total 2800 ml 2650 ml # Voids 2 # Bowel Movements 1 3 Laboratory Tests 05/26/17 12:45: White Blood Count 12.9H, Red Blood Count 3.59L, Hemoglobin 11.4L, Hematocrit 35.3L, Mean Corpuscular Volume 98, Mean Corpuscular Hemoglobin 31.6H, Mean Corpuscular Hemoglobin Concent 32.2, Red Cell Distribution Width 13.0, Platelet Count 197, Mean Platelet Volume 6.9, Neutrophils (%) (Auto) 48.0, Lymphocytes (% ) (Auto) 37.9, Monocytes (%) (Auto) 6.9, Eosinophils (%) (Auto) 6.1H, Basophils (%) (Auto) 1.2, Sodium Level 140, Potassium Level 5.1, Chloride Level 111H, Carbon Dioxide Level 21, Anion Gap 8, Blood Urea Nitrogen 29H, Creatinine 2.3H, Estimat Glomerular Filtration Rate 26.3, Glucose Level 104, Calcium Level 8.4L, Total Bilirubin 0.4, Aspartate Amino Transf (AST/SGOT) 16, Alanine Aminotransferase (ALT/SGPT) 26, Alkaline Phosphatase 66, Total Protein 6.3L, Albumin 3.0L, Globulin 3.3, Albumin/Globulin Ratio 0.9L Height (Feet): 5 Height (Inches): 1.00 Weight (Pounds): 122 General Appearance: no apparent distress Objective no change CARMENZA SOSA May 27, 2017 12:20
[2017-05-27] MEDS ORDERED: oxyCODONE HCL/Acetaminophen 5/325mg ORAL PRN (16:30)
[2017-05-27] MEDS ORDERED: traMADol 50mg tab ORAL PRN ×2 (16:45→22:30)
[2017-05-27 20:00] VITALS: BP 127/73
[2017-05-27] MEDS: Miralax 17gm pkt ORAL SCH (20:36)
--- NOTE | 2017-05-27 22:11 | General Progress Note ---
Assessment/Plan Problem List: (1) 7cm unilocular thin-walled cystic mass in the right adnexal region (2) RAGINI (acute kidney injury) Assessment & Plan: Unclear baseline SCr. Pt likely w/ CKD ICD Codes: N17.9 - Acute kidney failure, unspecified SNOMED: 02923412 (3) Abdominal pain ICD Codes: R10.9 - Unspecified abdominal pain SNOMED: 64145859 Qualifiers: Qualified Codes: R10.30 - Lower abdominal pain, unspecified (4) Pelvic pain ICD Codes: R10.2 - Pelvic and perineal pain SNOMED: 04164054 (5) Hematemesis ICD Codes: K92.0 - Hematemesis SNOMED: 4514216 (6) Leukocytosis ICD Codes: D72.829 - Elevated white blood cell count, unspecified SNOMED: 247476057, 188051414 (7) H/O malignant neoplasm of breast ICD Codes: Z85.3 - Personal history of malignant neoplasm of breast SNOMED: 550128756 (8) Asthma ICD Codes: J45.909 - Unspecified asthma, uncomplicated SNOMED: 416143922 (9) Hypertension ICD Codes: I10 - Essential (primary) hypertension SNOMED: 97712714 (10) Alcohol abuse ICD Codes: F10.10 - Alcohol abuse, uncomplicated SNOMED: 93954514 (11) 3mm left lateral lung base nodule Status: stable Assessment/Plan - General surgery, renal, GI, and EMPLOYMENT RECRUITER consulted - appreciate recs. Hotel Service Supervisor Dr. Meeks was called who states that pt needs referral to Hotel Service Supervisor onc. No acute surgical intervention needed per kilnman and gen surg; OK for outpt f/u. Pt was indicated to obtain referral for [facility]man onc from PCP. Pt states that she will call her PCP - monitor CBC - monitor H/H and transfuse prn Hgb < 7 - monitor CHEM - monitor Cr. Avoid nephrotoxic meds - cont IVFs per renal - CT a/p reviewed--7 cm unilocular thin-walled cystic mass in the right adnexal region - F/u U/S abd - PPIi 40mg IV BID - continue home albuterol and BP meds - SSi. Monitor blood sugars - multivitamin, folate, thiamine daily - antiemetics prn - pain control and supportive care - f/u with repeat CT chest in 3-6 months given 3mm left lateral lung base nodule - pain control--d/c IV narcotic and transition to PO - supportive care - DC planning for tomorrow if pain controlled DVT ppx: SCDs, HSQ FULL CODE D/w pt, RN, SW/CM, renal, gen surg regarding mgmt and dispo Subjective Date patient seen: May 27, 2017 Time patient seen: 15:00 ROS Limited/Unobtainable: No Constitutional: Reports: no symptoms HEENT: Reports: no symptoms Cardiovascular: Reports: no symptoms Respiratory: Reports: no symptoms Gastrointestinal/Abdominal: Reports: no symptoms Genitourinary: Reports: pain Neurologic/Psychiatric: Reports: no symptoms Endocrine: Reports: no symptoms Hematologic/Lymphatic: Reports: no symptoms Allergies: Coded Allergies: CODEINE (Unverified Allergy, Unknown, 09/28/16) Subjective No acute events Afebrile, HDS SCr cont to downtrend C/o abd pain Denies cp, sob, palp, orthopnea, n/v/d Objective Last 24 Hour Vital Signs Date Time Temp Pulse Resp B/P (MAP) Pulse Ox O2 Delivery O2 Flow Rate FiO2 05/27/17 20:00 97.7 80 18 127/73 97 Room Air 97.7 05/27/17 08:36 76 110/66 05/27/17 00:00 98 Room Air Intake and Output 05/26/17 05/27/17 19:00 07:00 Intake Total 2320 ml 1500 ml Output Total 2800 ml 2650 ml Balance -480 ml -1150 ml Intake Oral 1120 ml IV Total 1200 ml 700 ml Other 800 ml Output Urine Total 2800 ml 2650 ml # Voids 2 # Bowel Movements 1 3 Height (Feet): 5 Height (Inches): 1.00 Weight (Pounds): 122 Objective Gen: NAD, awake, alert HEENT: normocephalic, atraumatic Respiratory/Chest: chest wall non-tender, lungs clear, normal breath sounds Cardiovascular/Chest: normal peripheral pulses, normal rate, regular rhythm Abdomen: normal bowel sounds, soft, +LLQ/L pelvic TTP w/o rebound or guarding Extremities: normal range of motion, non-tender Skin Exam: normal pigmentation, warm/dry 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 May 27, 2017 22:10
[2017-05-27] MEDS: HYDROmorphone 2mg tab ORAL PRN (23:05)
[2017-05-28] VITALS: BP 115/73
[2017-05-28 04:00] VITALS: BP 107/64
[2017-05-28] MEDS: NovoLOG Insulin Flexpen SUBQ SCH ×3 (05:55→16:30)
[2017-05-28] MEDS: HYDROmorphone 2mg tab ORAL PRN (06:06)
[2017-05-28 08:00] VITALS: BP 110/72
[2017-05-28] MEDS: Pantoprazole Inj IVP SCH (08:54)
[2017-05-28] MEDS: Docusate 100mg cap ORAL SCH (09:11)
[2017-05-28] MEDS: Thiamine 100mg tab ORAL SCH (09:12)
[2017-05-28 09:20] LABS: BASOPHILS % (AUTO) 1.4 % (0.0-2.0); EOSINOPHILS % (AUTO) 8.5 % (0.0-3.0); HEMATOCRIT 33.3 % (37.0-47.0); HEMOGLOBIN 10.9 G/DL (12.0-16.0); LYMPHOCYTES % (AUTO) 41.8 % (20.0-45.0); MEAN CORPUSCULAR VOLUME 98 FL (80-99); MONOCYTES % (AUTO) 5.9 % (1.0-10.0); NEUTROPHILS % (AUTO) 42.5 % (45.0-75.0); PLATELET COUNT 201 K/UL (150-450); RED CELL DISTRIBUTION WIDTH 12.7 % (11.6-14.8); WHITE BLOOD COUNT 10.3 K/UL (4.8-10.8)
[2017-05-28 09:52] LABS: ANION GAP 8 mmol/L (5-15); BLOOD UREA NITROGEN 28 mg/dL (7-18); CALCIUM 8.5 MG/DL (8.5-10.1); CARBON DIOXIDE 21 MMOL/L (21-32); CHLORIDE 111 MMOL/L (98-107); CREATININE 2.1 MG/DL (0.55-1.30); POTASSIUM 4.6 MMOL/L (3.5-5.1); SODIUM 140 MMOL/L (136-145)
--- NOTE | 2017-05-28 10:18 | Diagnostic Imaging Report ---
Indication: Abdominal pain Technique: Larsen-scale and duplex images of the upper abdomen were obtained Comparison: 04/03/2009. Reference also made to abdomen and pelvis CT dated 05/23/2017, renal ultrasound dated 09/28/2016 Findings: Gallbladder is unremarkable, without stones, wall thickening, nor pericholecystic fluid. Sonographic Colunga's sign is negative. Common bile duct measures for mm in diameter. No intrahepatic biliary ductal dilatation. Liver demonstrates equivocally slightly coarsened echogenicity. No focal abnormality Portal vein and hepatic veins are patent. Pancreas is unremarkable. Spleen is unremarkable. Left kidney measures 9.2 cm in length. Right kidney measures 8.8 cm length. Both kidneys demonstrate normal echogenicity. There is no hydronephrosis. Apparent masses or cysts demonstrated on the initial image acquisition are not confirmed on repeat images and probably does represent lobulations. No corresponding abnormality seen on prior CT or ultrasound as well. 7 mm calculus seen in the left renal lower pole, also evident on prior CT.. Non-aneurysmal abdominal aorta . Bladder contains a Duncan catheter, as well as a small amount retained urine despite Duncan catheter. Impression: Negative for gallstones or dilated ducts Equivocally slightly coarsened hepatic echogenicity, if real could indicate hepatocellular disease. Correlate with liver function tests Left lower pole renal calcifications, also demonstrated on recent CT Duncan catheter
[2017-05-28 10:26] LABS: ALANINE AMINOTRANSFERASE 20 U/L (12-78); ALBUMIN 2.5 G/DL (3.4-5.0); ALKALINE PHOSPHATASE 57 U/L (46-116); ASPARTATE AMINO TRANSFERASE 11 U/L (15-37); BILIRUBIN,DIRECT < 0.1 MG/DL (0.0-0.3); BILIRUBIN,TOTAL 0.3 MG/DL (0.2-1.0); PHOSPHORUS 3.1 MG/DL (2.5-4.9)
--- NOTE | 2017-05-28 11:08 | GI Progress Note ---
Assessment/Plan Problems: (1) Abdominal pain ICD Codes: R10.9 - Unspecified abdominal pain SNOMED: 23602902 Qualifiers: Qualified Codes: R10.30 - Lower abdominal pain, unspecified (2) Constipation ICD Codes: K59.00 - Constipation, unspecified SNOMED: 59179310 (3) Hematemesis ICD Codes: K92.0 - Hematemesis SNOMED: 8778280 (4) Alcohol abuse ICD Codes: F10.10 - Alcohol abuse, uncomplicated SNOMED: 10411803 Status: unchanged Status Narrative Discussed with Dr. Gavin. Assessment/Plan utox positive cocaine symptomatic treatment adv to renal diet zofran prn ppi daily prn transfusion bowel regime fu labs outpatient GI procedures Subjective Subjective lower abdominal pain Objective Last 24 Hour Vital Signs Date Time Temp Pulse Resp B/P (MAP) Pulse Ox O2 Delivery O2 Flow Rate FiO2 05/28/17 09:12 72 116/72 05/28/17 09:11 97.7 05/28/17 04:00 97.7 68 18 107/64 97 Room Air 97.7 05/28/17 00:00 98.1 75 18 115/73 99 Room Air 98.1 05/27/17 20:00 97.7 80 18 127/73 97 Room Air 97.7 Intake and Output 05/27/17 05/28/17 19:00 07:00 Intake Total 1340 ml 900 ml Balance 1340 ml 900 ml Intake Oral 240 ml IV Total 1100 ml 900 ml # Voids 6 3 # Bowel Movements 3 Laboratory Tests Test 05/28/17 08:45 White Blood Count 10.3 K/UL (4.8-10.8) Red Blood Count 3.40 M/UL (4.20-5.40) L Hemoglobin 10.9 G/DL (12.0-16.0) L Hematocrit 33.3 % (37.0-47.0) L Mean Corpuscular Volume 98 FL (80-99) Mean Corpuscular Hemoglobin 32.1 PG (27.0-31.0) H Mean Corpuscular Hemoglobin Concent 32.8 G/DL (32.0-36.0) Red Cell Distribution Width 12.7 % (11.6-14.8) Platelet Count 201 K/UL (150-450) Mean Platelet Volume 7.1 FL (6.5-10.1) Neutrophils (%) (Auto) 42.5 % (45.0-75.0) L Lymphocytes (%) (Auto) 41.8 % (20.0-45.0) Monocytes (%) (Auto) 5.9 % (1.0-10.0) Eosinophils (%) (Auto) 8.5 % (0.0-3.0) H Basophils (%) (Auto) 1.4 % (0.0-2.0) Sodium Level 140 MMOL/L (136-145) Potassium Level 4.6 MMOL/L (3.5-5.1) Chloride Level 111 MMOL/L (98-107) H Carbon Dioxide Level 21 MMOL/L (21-32) Anion Gap 8 mmol/L (5-15) Blood Urea Nitrogen 28 mg/dL (7-18) H Creatinine 2.1 MG/DL (0.55-1.30) H Estimat Glomerular Filtration Rate 29.1 mL/min (>60) Glucose Level 157 MG/DL (74-106) H Uric Acid 2.6 MG/DL (2.6-7.2) Calcium Level 8.5 MG/DL (8.5-10.1) Phosphorus Level 3.1 MG/DL (2.5-4.9) Magnesium Level 1.4 MG/DL (1.8-2.4) L Total Bilirubin 0.3 MG/DL (0.2-1.0) Direct Bilirubin < 0.1 MG/DL (0.0-0.3) Aspartate Amino Transf (AST/SGOT) 11 U/L (15-37) L Alanine Aminotransferase (ALT/SGPT) 20 U/L (12-78) Alkaline Phosphatase 57 U/L (46-116) Total Protein 6.0 G/DL (6.4-8.2) L Albumin 2.5 G/DL (3.4-5.0) L Height (Feet): 5 Height (Inches): 1.00 Weight (Pounds): 122 General Appearance: WD/WN, no apparent distress, alert, overweight Cardiovascular: normal rate Respiratory/Chest: normal breath sounds, no respiratory distress Abdominal Exam: normal bowel sounds, non tender, soft Extremities: normal range of motion, non-tender Keyana Main N.P. May 28, 2017 11:08
[2017-05-28 12:00] VITALS: BP 116/65
[2017-05-28] MEDS ORDERED: PROTONIX40 MG ORAL (13:11)
--- NOTE | 2017-05-28 14:35 | Discharge Instructions ---
Discharge Instructions Discharge Instructions Follow up with: Primary care doctor and gynecology in 1 weeks Call MD/Return to Hospital if: fevers, chest pain, SOB Resume Normal Activity?: Yes Activity: resume normal activities Special Instructions Request gynecology referral from primary care doctor For Congestive Heart Failure Reminder Report to your physician any weight gain of 5 pounds or more in one week. Tyson Coronado M.D. May 28, 2017 14:35
[2017-05-28] MEDS ORDERED: oxyCODONE HCL/Acetaminophen 5/325mg ORAL PRN (14:45)
--- NOTE | 2017-05-28 14:57 | Nephrology Progress Note ---
Assessment/Plan Problem List: (1) Renal failure (2) Chronic kidney disease (3) Dehydration Assessment Acute renal failure- cr lowering ? CKD DM ? Nephropathy HTN lung nodule on CT Pelvic mass ? Ovarian Anemia h/o Breast Ca Alcohol Abuse Plan no labs today- DC dunbar- Hydrate Anemia dougherty COLLECTIONS REP eval Avoid Nephrotoxics Keep BP and BS in check per orders venous duplex Subjective ROS Limited/Unobtainable: No Constitutional: Reports: malaise Objective Objective Last 24 Hour Vital Signs Date Time Temp Pulse Resp B/P (MAP) Pulse Ox O2 Delivery O2 Flow Rate FiO2 05/28/17 12:00 98.0 19 116/65 98 Room Air 98.0 05/28/17 09:12 72 116/72 05/28/17 09:11 97.7 05/28/17 08:00 98.2 19 110/72 100 Room Air 98.2 05/28/17 04:00 97.7 68 18 107/64 97 Room Air 97.7 05/28/17 00:00 98.1 75 18 115/73 99 Room Air 98.1 05/27/17 20:00 97.7 80 18 127/73 97 Room Air 97.7 Intake and Output 05/27/17 05/28/17 19:00 07:00 Intake Total 1340 ml 900 ml Balance 1340 ml 900 ml Intake Oral 240 ml IV Total 1100 ml 900 ml # Voids 6 3 # Bowel Movements 3 Laboratory Tests 05/28/17 08:45: White Blood Count 10.3, Red Blood Count 3.40L, Hemoglobin 10.9L, Hematocrit 33.3L, Mean Corpuscular Volume 98, Mean Corpuscular Hemoglobin 32.1H, Mean Corpuscular Hemoglobin Concent 32.8, Red Cell Distribution Width 12.7, Platelet Count 201, Mean Platelet Volume 7.1, Neutrophils (%) (Auto) 42.5L, Lymphocytes ( %) (Auto) 41.8, Monocytes (%) (Auto) 5.9, Eosinophils (%) (Auto) 8.5H, Basophils (%) (Auto) 1.4, Sodium Level 140, Potassium Level 4.6, Chloride Level 111H, Carbon Dioxide Level 21, Anion Gap 8, Blood Urea Nitrogen 28H, Creatinine 2.1H, Estimat Glomerular Filtration Rate 29.1, Glucose Level 157H, Uric Acid 2.6 , Calcium Level 8.5, Phosphorus Level 3.1, Magnesium Level 1.4L, Total Bilirubin 0.3, Direct Bilirubin < 0.1, Aspartate Amino Transf (AST/SGOT) 11L, Alanine Aminotransferase (ALT/SGPT) 20, Alkaline Phosphatase 57, Total Protein 6.0L, Albumin 2.5L Height (Feet): 5 Height (Inches): 1.00 Weight (Pounds): 122 General Appearance: no apparent distress Objective no change CARMENZA SOSA May 28, 2017 14:56
--- NOTE | 2017-05-30 10:21 | Discharge Summary ---
Discharge Summary Hospital Course Date of Admission May 23, 2017 at 23:09 Date of Discharge May 28, 2017 at 18:30 Admitting Diagnosis RENAL FAILURE-PELVIC MASs HPI Krysta Brewer is a 62 year old female who was admitted on May 23, 2017 at 23:09 for Renal Failure-Pelvic Mass Hospital Course [id number] Discharge Discharge Disposition Patient was discharged to Home (01) Discharge Instructions Discharge Instructions Follow up with: Primary care doctor and gynecology in 1 weeks Call MD/Return to Hospital if: fevers, chest pain, SOB Activity: resume normal activities Gwen Mir NP May 30, 2017 10:21
--- NOTE | 2017-05-31 04:16 | Discharge Summary 2 SIG ---
DATE OF ADMISSION: 05/23/2017 DATE OF DISCHARGE: 05/28/2017 CONSULTANTS: 1. Charles Reeves M.D. 2. Armand Gavin M.D. 3. Ramesh Sams M.D. BRIEF HOSPITAL COURSE: The patient is a 62-year-old female with medical history of chronic kidney disease, alcohol abuse, illicit drug abuse, history of hypertension, type 2 diabetes, and breast cancer status post left lumpectomy, presented to ED complaining of two to three days of severe abdominal pain and headaches. Headaches were reported to be band like and 5/10 in intensity. She also reported generalized abdominal pain with increased pain to the right lower quadrant. She had nausea and vomiting that were bright red blood x3 and had one episode of nonbloody nonbilious vomiting. She denied eating any red colored foods and admitted to drinking the day prior. She denied fevers and chills. Denied chest pain, shortness of breath, or myalgia. Denied diarrhea or constipation. On evaluation at ED, CT of the abdomen and pelvis was done, which showed 3 mm lung nodule in the left lateral lung base as well as a right 7 mm cystic mass that is likely of adnexal origin. She was admitted and was started on clear liquid diet. She was placed on proton pump inhibitors and was continued on home medications. She was given multivitamin, folate, and thiamine. Surgical evaluation was done. Abdominal exam was fairly benign. There was no acute surgical intervention necessary. Creatinine was elevated to 4.6. She was given IV hydration. Abdominal ultrasound done was negative for gallstones or dilated ducts with coarsened hepatic echogenicity indicating hepatocellular disease. Creatinine improved with hydration. Gynecology recommendation was done and the patient needs referral to [facility]. She was given pain management and supportive care. She was eventually discharged home. FINAL DIAGNOSES: 1. Right adnexal mass. 2. Acute kidney injury with likely chronic kidney disease. 3. Abdominal pain. 4. Pelvic pain. 5. Hematemesis. 6. Leukocytosis. 7. Prior breast cancer. 8. Asthma. 9. Hypertension. 10. Alcohol abuse. 11. A 3 mm left lung base nodule. DISPOSITION: The patient was discharged home. DISCHARGE INSTRUCTIONS: Follow up with PCP for referral for a [facility]. She will eventually need a repeat CT of the chest in three to six months to evaluate left lateral lung base nodule. DISCHARGE MEDICATIONS: Refer to medication list. Tyson Coronado M.D. I have been assigned to dictate discharge summary on this account and I was not involved in the patient's management. Gwen Mir N.P. DR: SALONI JOB#: [id number] CC: LORE
== END 2017-05-28 18:30 | disposition home or self-care (01) | DRG 532 ==
LOC: EDBD 19:16 → EMR 21:22 → 4E 23:09 → EDBEDREQ 05-24 01:07 → 4E 05-26 02:42
DX: N83.8 Other noninflammatory disorders of ovary, fallopian tube and broad ligament (principal); N17.9 Acute kidney failure, unspecified; K92.0 Hematemesis; I12.9 Hypertensive chronic kidney disease with stage 1 through stage 4 chronic kidney disease, or unspecified chronic kidney disease; D64.9 Anemia, unspecified; E11.9 Type 2 diabetes mellitus without complications; E86.0 Dehydration; F10.10 Alcohol abuse, uncomplicated; N18.9 Chronic kidney disease, unspecified; Z85.3 Personal history of malignant neoplasm of breast; Z88.6 Allergy status to analgesic agent; R91.1 Solitary pulmonary nodule; J45.909 Unspecified asthma, uncomplicated; R51 Headache; K59.00 Constipation, unspecified
CPT/HCPCS: 36415; 70450; 71045; 74176; 76700; 80048; 80053; 80061; 80076; 80307; 81003; 82105; 82378; 82550; 82607; 82728; 82746; 82962; 82977; 83036; 83540; 83550; 83690; 83735; 83880; 84100; 84443; 84550; 85025; 86140; 86304; 93970; 99285; J1815